=== PATIENT | male | born 1950 | race Caucasian/White ===

== ENCOUNTER 2021-07-22 16:25 | Emergency (ER) | payer OTHER, SELFPAY ==
[2021-07-22 16:59] VITALS: BP 160/87; PULSE 90; RESP 18; TEMP 36.7; O2SAT 98; BMI 19.1
--- NOTE | 2021-07-22 19:23 | ED.PSYCH ---
HPI - Psych <Consuelo Ye MD - Last Filed: 07/24/21 00:17> General Chief Complaint: Psychiatric Symptoms Stated Complaint: PHYSCHIATRY HELP DEPRESSION Time Seen by Provider: 07/22/21 19:23 Source: patient Mode of arrival: Ambulatory History of Present Illness HPI Narrative: Per MANAGER REPORTING sad, poor eating/drinking SI has gun but no plan would be interested in voluntary psych admit lost 17months ago, no meds DM poor hygeine, due to not eating was unable to get off the floor 2 weeks ago 15lbs last 2 months. No obvious dementia issues Related Data Home Medications Medication Instructions Recorded Confirmed metformin 1,000 mg tablet 1,000 mg PO BID 07/22/21 07/22/21 citalopram 10 mg tablet 10 mg PO DAILY 07/23/21 07/23/21 dapagliflozin 10 mg tablet 10 mg PO DAILY 07/23/21 07/23/21 (Farxiga) glimepiride 1 mg tablet 1 mg PO DAILY 07/23/21 07/23/21 levothyroxine 75 mcg tablet 75 mcg PO DAILY 07/23/21 07/23/21 metoprolol tartrate 25 mg tablet 12.5 mg PO BID 07/23/21 07/23/21 simvastatin 10 mg tablet 10 mg PO BEDTIME 07/23/21 07/23/21 temazepam 15 mg capsule 15 mg PO BEDTIME PRN 07/23/21 07/23/21 Allergies Allergy/AdvReac Type Severity Reaction Status Date / Time No Known Drug Allergies Allergy Verified 07/22/21 21:35 <Dat Donovan DO - Last Filed: 07/23/21 19:09> History of Present Illness HPI Narrative: 71M nonsmoker with history of diabetes, hypertension, hyperlipidemia, hypothyroidism presents with a family friend and a chief complaint of suicidal ideation with plan for the past few days. He states that his triggers are largely how sad he is at the loss of his a bit more than a year ago, also he states that he has lost a large amount of money due to being scanned by various people as another cause. He states that his plan would likely be to use a gun but he does not think he would actually do it. He requests help and wants placement into a psychiatric facility. He lives at home alone in [place]. He has been admitted for psychiatric reasons in the distant past but is not specific about the details. Per MANAGER REPORTING sad, poor eating/drinking SI has gun but no plan would be interested in voluntary psych admit lost 17months ago, no meds DM poor hygeine, due to not eating was unable to get off the floor 2 weeks ago 15lbs last 2 months. No obvious dementia issues <Dat Donovan DO - Last Filed: 07/23/21 19:09> Review of Systems Narrative: GENERAL: Denies chills, fatigue, malaise, fever, sweats. HEENT: Denies sinus pain, ear pain, sore throat, difficulty swallowing, dizziness. RESPIRATORY: Denies dyspnea, cough, wheezing, hemoptysis, sputum. CARDIOVASCULAR: Denies chest pain, palpitations, orthopnea, edema, GASTROINTESTINAL: Denies nausea, vomiting, abdominal pain, diarrhea, constipation, melena. : Denies dysuria, frequency, incontinence, hematuria, urinary retention. MUSCULOSKELETAL: denies weakness, joint pain, or bony pain SKIN: Denies rash, skin lesions, or other NEUROLOGIC: Denies weakness, headache, numbness, change in speech, confusion, seizures, incoordination. PSYCHIATRIC: See HPI 12 point review of systems is negative except for those stated above Patient History <Consuelo Ye MD - Last Filed: 07/24/21 00:17> Social History Smoking Status: Never smoker Smoking Status: Never smoker alcohol intake frequency: holidays/special occasions only Substance Use Type: does not use Exam <Consuelo Ye MD - Last Filed: 07/24/21 00:17> Initial Vital Signs Initial Vital Signs: Vital Signs Temperature 98.0 F 07/22/21 16:59 Pulse Rate 90 07/22/21 16:59 Respiratory Rate 18 07/22/21 16:59 Blood Pressure 160/87 H 07/22/21 16:59 Pulse Oximetry 98 07/22/21 16:59 <Dat Donovan DO - Last Filed: 07/23/21 19:09> Narrative Exam Narrative: GENERAL: [71] year old patient appears stated age. Well-developed patient, in mild distress. Resting comfortably, sad and a bit withdrawn HEAD: Atraumatic. Normocephalic. EYES: Pupils equal round and reactive. Extraocular motions intact. No scleral icterus. No injection or drainage. ENT: Nose without bleeding, purulent drainage. Throat without erythema, tonsillar hypertrophy or exudate. Airway patent. NECK: Trachea midline. Non tender CARDIOVASCULAR: Regular rate and rhythm without murmurs, gallops, or rubs. RESPIRATORY: Clear to auscultation. Breath sounds equal bilaterally. No wheezes, rales, or rhonchi. GASTROINTESTINAL: Abdomen soft, non-tender, nondistended. EXTREMITIES: No edema or joint tenderness. BACK: Nontender without deformity or crepitance. No flank tenderness. NEURO: AOx3. SKIN: No rash or erythema of visible areas Initial Vital Signs Initial Vital Signs: Vital Signs Temperature 98.0 F 07/22/21 16:59 Pulse Rate 90 07/22/21 16:59 Respiratory Rate 18 07/22/21 16:59 Blood Pressure 160/87 H 07/22/21 16:59 Pulse Oximetry 98 07/22/21 16:59 Course <Consuelo Ye MD - Last Filed: 07/24/21 00:17> Orders Ordered: Discontinued Medications Aspirin (Aspirin Ec 81 Mg Tablet) 162 mg PO NOW ONE Stop: 07/23/21 10:35 Last Admin: 07/23/21 10:55 Dose: 162 mg Documented by: JACE Levothyroxine Sodium (Levothyroxine 75 Mcg Tablet) 75 mcg PO DAILY@0600 [facility] Metformin HCl (Metformin Hcl 500 Mg Tablet) 1,000 mg PO 0800,1700 [facility] Metformin HCl (Metformin Hcl 500 Mg Tablet) 1,000 mg PO NOW ONE Stop: 07/22/21 21:26 Last Admin: 07/22/21 22:13 Dose: 1,000 mg Documented by: DARIUS Metformin HCl (Metformin Hcl 500 Mg Tablet) 1,000 mg PO NOW ONE Stop: 07/23/21 10:36 Last Admin: 07/23/21 10:55 Dose: 1,000 mg Documented by: JACE Metoprolol Tartrate (Metoprolol Ir 25 Mg Tablet) 12.5 mg PO NOW ONE Stop: 07/23/21 10:43 Last Admin: 07/23/21 10:55 Dose: 12.5 mg Documented by: JACE Temazepam (Temazepam 15 Mg Capsule) 15 mg PO BEDTIME PRN PRN Reason: Sleep Last Admin: 07/22/21 22:12 Dose: 15 mg Documented by: DARIUS Vital Signs Vital signs: Vital Signs - 8 hr 07/23/21 16:00 Temperature 98 F Pulse Rate 80 Respiratory Rate 18 Blood Pressure 150/75 H Pulse Oximetry 98 <Dat Donovan DO - Last Filed: 07/23/21 19:09> Course Course Narrative: Patient has been medically cleared and social Work has found an open bed and accepting provider at [facility]. Transportation is arranged. Patient understands and is in agreement with the plan Orders Ordered: Discontinued Medications Aspirin (Aspirin Ec 81 Mg Tablet) 162 mg PO NOW ONE Stop: 07/23/21 10:35 Last Admin: 07/23/21 10:55 Dose: 162 mg Documented by: JACE Levothyroxine Sodium (Levothyroxine 75 Mcg Tablet) 75 mcg PO DAILY@0600 [facility] Metformin HCl (Metformin Hcl 500 Mg Tablet) 1,000 mg PO 0800,1700 [facility] Metformin HCl (Metformin Hcl 500 Mg Tablet) 1,000 mg PO NOW ONE Stop: 07/22/21 21:26 Last Admin: 07/22/21 22:13 Dose: 1,000 mg Documented by: DARIUS Metformin HCl (Metformin Hcl 500 Mg Tablet) 1,000 mg PO NOW ONE Stop: 07/23/21 10:36 Last Admin: 07/23/21 10:55 Dose: 1,000 mg Documented by: JACE Metoprolol Tartrate (Metoprolol Ir 25 Mg Tablet) 12.5 mg PO NOW ONE Stop: 07/23/21 10:43 Last Admin: 07/23/21 10:55 Dose: 12.5 mg Documented by: JACE Temazepam (Temazepam 15 Mg Capsule) 15 mg PO BEDTIME PRN PRN Reason: Sleep Last Admin: 07/22/21 22:12 Dose: 15 mg Documented by: DARIUS Reevaluation(s) Reevaluation #1: Summer (Sister) called. He gives us permission to speak to her about his condition. I tried calling her back at [phone], but there was no answer. I did not leave a message Time: 10:54 Vital Signs Vital signs: Vital Signs - 8 hr 07/23/21 16:00 Temperature 98 F Pulse Rate 80 Respiratory Rate 18 Blood Pressure 150/75 H Pulse Oximetry 98 MDM - Psych <Consuelo Ye MD - Last Filed: 07/24/21 00:17> Lab Data Result diagrams: 07/22/21 19:48 07/22/21 19:48 Labs: Lab Results 07/22/21 07/22/21 07/22/21 Range/Units 19:48 19:48 19:48 WBC 9.1 (4.5-11.0) X10^3/uL RBC 4.50 (4.5-5.9) X10^6/uL Hgb 13.5 (13.5-17.5) g/dL Hct 40.4 L (41-53) % MCV 89.7 (80-100) fL MCH 30.1 (26-34) PG MCHC 33.5 (30-36) % RDW 13.1 (11.6-14.8) % Plt Count 235 (150-400) X10^3/uL Neut % (Auto) 80.0 H (50-75) % Lymph % (Auto) 12.4 L (25-40) % [place] % (Auto) 5.9 (3-14) % Eos % (Auto) 1.2 L (2-4) % Baso % (Auto) 0.5 (0-2) % Neut # (Auto) 7300 H (4758-1209) /uL Lymph # (Auto) 1100 (3168-5047) /uL [place] # (Auto) 500 (0-900) /uL Eos # (Auto) 100 (0-450) /uL Baso # (Auto) 0 (0-100) /uL Sodium 137 (137-145) mmol/L Potassium 4.7 (3.4-5.1) mmol/L Chloride 99 (98-107) mmol/L Carbon Dioxide 32 (22-32) mmol/L BUN 24 H (9-20) mg/dL Creatinine 1.04 (0.66-1.25) mg/dL Estimated GFR > 60.0 (>60) mL/min BUN/Creatinine Ratio 23.1 H (6-22) Glucose 331 H (80-110) mg/dL Calcium 9.6 (8.4-10.2) mg/dL Total Bilirubin 0.4 (0.2-1.3) mg/dL AST 31 (17-59) IU/L ALT 31 (<50) IU/L Alkaline Phosphatase 66 (38-126) U/L Total Protein 7.4 (6.3-8.2) g/dL Albumin 4.4 (3.5-5.0) g/dL Globulin 3.0 (1.7-4.1) g/dL Albumin/Globulin Ratio 1.5 (1.0-2.8) TSH 2.83 (0.47-4.68) uIU/mL Urine Color Urine Appearance Urine pH (4.5-8.0) Ur Specific [place] (1.000-1.035) Urine Protein (Negative) Urine Glucose (UA) (Negative) g/dL Urine Ketones (NEGATIVE) Urine Occult Blood (Negative) Urine Nitrate (Negative) Urine Bilirubin (NEGATIVE) Urine Urobilinogen (0.2) E.U./dL Ur Leukocyte Esterase (NEGATIVE) Urine RBC (0-5/HPF) Urine WBC (0-5/HPF) Urine Bacteria (None) Ur Culture Indicated? Micro UA Comment U Opiates 300ng/mL cut (Negative) Ur Oxycodone Screen (Negative) Urine Methadone Screen (Negative) Ur Barbiturates Screen (Negative) U Tricyclic Antidepress (Negative) Ur Phencyclidine Scrn (Negative) Ur Amphetamines Screen (Negative) U Methamphetamines Scrn (Negative) Ur MDMA Scrn (Ecstasy) (Negative) U Benzodiazepines Scrn (Negative) Urine Cocaine Screen (Negative) U Marijuana (THC) Screen (Negative) Ethyl Alcohol < 10 ( - 10) mg/dL SARS-CoV-2 (PCR) (Negative) 07/22/21 07/22/21 07/22/21 Range/Units 20:04 20:04 20:04 WBC (4.5-11.0) X10^3/uL RBC (4.5-5.9) X10^6/uL Hgb (13.5-17.5) g/dL Hct (41-53) % MCV (80-100) fL MCH (26-34) PG MCHC (30-36) % RDW (11.6-14.8) % Plt Count (150-400) X10^3/uL Neut % (Auto) (50-75) % Lymph % (Auto) (25-40) % [place] % (Auto) (3-14) % Eos % (Auto) (2-4) % Baso % (Auto) (0-2) % Neut # (Auto) (8930-0801) /uL Lymph # (Auto) (2418-4085) /uL [place] # (Auto) (0-900) /uL Eos # (Auto) (0-450) /uL Baso # (Auto) (0-100) /uL Sodium (137-145) mmol/L Potassium (3.4-5.1) mmol/L Chloride (98-107) mmol/L Carbon Dioxide (22-32) mmol/L BUN (9-20) mg/dL Creatinine (0.66-1.25) mg/dL Estimated GFR (>60) mL/min BUN/Creatinine Ratio (6-22) Glucose (80-110) mg/dL Calcium (8.4-10.2) mg/dL Total Bilirubin (0.2-1.3) mg/dL AST (17-59) IU/L ALT (<50) IU/L Alkaline Phosphatase (38-126) U/L Total Protein (6.3-8.2) g/dL Albumin (3.5-5.0) g/dL Globulin (1.7-4.1) g/dL Albumin/Globulin Ratio (1.0-2.8) TSH (0.47-4.68) uIU/mL Urine Color Yellow Urine Appearance Clear Urine pH 7.0 (4.5-8.0) Ur Specific [place] 1.010 (1.000-1.035) Urine Protein Negative (Negative) Urine Glucose (UA) 2+ H (Negative) g/dL Urine Ketones Trace H (NEGATIVE) Urine Occult Blood Negative (Negative) Urine Nitrate Negative (Negative) Urine Bilirubin Negative (NEGATIVE) Urine Urobilinogen 0.2 (0.2) E.U./dL Ur Leukocyte Esterase Negative (NEGATIVE) Urine RBC None seen (0-5/HPF) Urine WBC None seen (0-5/HPF) Urine Bacteria None seen (None) Ur Culture Indicated? Cult not indicated Micro UA Comment Microscopic normal U Opiates 300ng/mL cut Positive H (Negative) Ur Oxycodone Screen Negative (Negative) Urine Methadone Screen Negative (Negative) Ur Barbiturates Screen Negative (Negative) U Tricyclic Antidepress Negative (Negative) Ur Phencyclidine Scrn Negative (Negative) Ur Amphetamines Screen Negative (Negative) U Methamphetamines Scrn Negative (Negative) Ur MDMA Scrn (Ecstasy) Negative (Negative) U Benzodiazepines Scrn Positive H (Negative) Urine Cocaine Screen Negative (Negative) U Marijuana (THC) Screen Negative (Negative) Ethyl Alcohol ( - 10) mg/dL SARS-CoV-2 (PCR) Negative (Negative) Point of Care Testing Glucose POC 223 Urine Dip Bedside Urine Glucose 1000 mg/dl Bedside Urine Bilirubin - Negative Bedside Urine Ketone - Negative Urine Specific [place] 1.015 Bedside Urine Occult Blood - Negative Bedside Urine pH 7.0 Bedside Urine Protein - Negative Bedside Urine Urobilinogen - Negative Bedside Urine Nitrite - Negative Bedside Urine Leukocytes - Negative Esterase <Dat Donovan DO - Last Filed: 07/23/21 19:09> Lab Data Labs: Lab Results 07/22/21 07/22/21 07/22/21 Range/Units 19:48 19:48 19:48 WBC 9.1 (4.5-11.0) X10^3/uL RBC 4.50 (4.5-5.9) X10^6/uL Hgb 13.5 (13.5-17.5) g/dL Hct 40.4 L (41-53) % MCV 89.7 (80-100) fL MCH 30.1 (26-34) PG MCHC 33.5 (30-36) % RDW 13.1 (11.6-14.8) % Plt Count 235 (150-400) X10^3/uL Neut % (Auto) 80.0 H (50-75) % Lymph % (Auto) 12.4 L (25-40) % [place] % (Auto) 5.9 (3-14) % Eos % (Auto) 1.2 L (2-4) % Baso % (Auto) 0.5 (0-2) % Neut # (Auto) 7300 H (5343-2703) /uL Lymph # (Auto) 1100 (2923-3486) /uL [place] # (Auto) 500 (0-900) /uL Eos # (Auto) 100 (0-450) /uL Baso # (Auto) 0 (0-100) /uL Sodium 137 (137-145) mmol/L Potassium 4.7 (3.4-5.1) mmol/L Chloride 99 (98-107) mmol/L Carbon Dioxide 32 (22-32) mmol/L BUN 24 H (9-20) mg/dL Creatinine 1.04 (0.66-1.25) mg/dL Estimated GFR > 60.0 (>60) mL/min BUN/Creatinine Ratio 23.1 H (6-22) Glucose 331 H (80-110) mg/dL Calcium 9.6 (8.4-10.2) mg/dL Total Bilirubin 0.4 (0.2-1.3) mg/dL AST 31 (17-59) IU/L ALT 31 (<50) IU/L Alkaline Phosphatase 66 (38-126) U/L Total Protein 7.4 (6.3-8.2) g/dL Albumin 4.4 (3.5-5.0) g/dL Globulin 3.0 (1.7-4.1) g/dL Albumin/Globulin Ratio 1.5 (1.0-2.8) TSH 2.83 (0.47-4.68) uIU/mL Urine Color Urine Appearance Urine pH (4.5-8.0) Ur Specific [place] (1.000-1.035) Urine Protein (Negative) Urine Glucose (UA) (Negative) g/dL Urine Ketones (NEGATIVE) Urine Occult Blood (Negative) Urine Nitrate (Negative) Urine Bilirubin (NEGATIVE) Urine Urobilinogen (0.2) E.U./dL Ur Leukocyte Esterase (NEGATIVE) Urine RBC (0-5/HPF) Urine WBC (0-5/HPF) Urine Bacteria (None) Ur Culture Indicated? Micro UA Comment U Opiates 300ng/mL cut (Negative) Ur Oxycodone Screen (Negative) Urine Methadone Screen (Negative) Ur Barbiturates Screen (Negative) U Tricyclic Antidepress (Negative) Ur Phencyclidine Scrn (Negative) Ur Amphetamines Screen (Negative) U Methamphetamines Scrn (Negative) Ur MDMA Scrn (Ecstasy) (Negative) U Benzodiazepines Scrn (Negative) Urine Cocaine Screen (Negative) U Marijuana (THC) Screen (Negative) Ethyl Alcohol < 10 ( - 10) mg/dL SARS-CoV-2 (PCR) (Negative) 07/22/21 07/22/21 07/22/21 Range/Units 20:04 20:04 20:04 WBC (4.5-11.0) X10^3/uL RBC (4.5-5.9) X10^6/uL Hgb (13.5-17.5) g/dL Hct (41-53) % MCV (80-100) fL MCH (26-34) PG MCHC (30-36) % RDW (11.6-14.8) % Plt Count (150-400) X10^3/uL Neut % (Auto) (50-75) % Lymph % (Auto) (25-40) % [place] % (Auto) (3-14) % Eos % (Auto) (2-4) % Baso % (Auto) (0-2) % Neut # (Auto) (7796-3698) /uL Lymph # (Auto) (2146-7104) /uL [place] # (Auto) (0-900) /uL Eos # (Auto) (0-450) /uL Baso # (Auto) (0-100) /uL Sodium (137-145) mmol/L Potassium (3.4-5.1) mmol/L Chloride (98-107) mmol/L Carbon Dioxide (22-32) mmol/L BUN (9-20) mg/dL Creatinine (0.66-1.25) mg/dL Estimated GFR (>60) mL/min BUN/Creatinine Ratio (6-22) Glucose (80-110) mg/dL Calcium (8.4-10.2) mg/dL Total Bilirubin (0.2-1.3) mg/dL AST (17-59) IU/L ALT (<50) IU/L Alkaline Phosphatase (38-126) U/L Total Protein (6.3-8.2) g/dL Albumin (3.5-5.0) g/dL Globulin (1.7-4.1) g/dL Albumin/Globulin Ratio (1.0-2.8) TSH (0.47-4.68) uIU/mL Urine Color Yellow Urine Appearance Clear Urine pH 7.0 (4.5-8.0) Ur Specific [place] 1.010 (1.000-1.035) Urine Protein Negative (Negative) Urine Glucose (UA) 2+ H (Negative) g/dL Urine Ketones Trace H (NEGATIVE) Urine Occult Blood Negative (Negative) Urine Nitrate Negative (Negative) Urine Bilirubin Negative (NEGATIVE) Urine Urobilinogen 0.2 (0.2) E.U./dL Ur Leukocyte Esterase Negative (NEGATIVE) Urine RBC None seen (0-5/HPF) Urine WBC None seen (0-5/HPF) Urine Bacteria None seen (None) Ur Culture Indicated? Cult not indicated Micro UA Comment Microscopic normal U Opiates 300ng/mL cut Positive H (Negative) Ur Oxycodone Screen Negative (Negative) Urine Methadone Screen Negative (Negative) Ur Barbiturates Screen Negative (Negative) U Tricyclic Antidepress Negative (Negative) Ur Phencyclidine Scrn Negative (Negative) Ur Amphetamines Screen Negative (Negative) U Methamphetamines Scrn Negative (Negative) Ur MDMA Scrn (Ecstasy) Negative (Negative) U Benzodiazepines Scrn Positive H (Negative) Urine Cocaine Screen Negative (Negative) U Marijuana (THC) Screen Negative (Negative) Ethyl Alcohol ( - 10) mg/dL SARS-CoV-2 (PCR) Negative (Negative) Point of Care Testing Glucose POC 223 Urine Dip Bedside Urine Glucose 1000 mg/dl Bedside Urine Bilirubin - Negative Bedside Urine Ketone - Negative Urine Specific [place] 1.015 Bedside Urine Occult Blood - Negative Bedside Urine pH 7.0 Bedside Urine Protein - Negative Bedside Urine Urobilinogen - Negative Bedside Urine Nitrite - Negative Bedside Urine Leukocytes - Negative Esterase MDM Narrative Medical decision making narrative: Patient presents with suicidal ideation and a plan and requesting placement for mental health. He has been medically cleared, home medications administered. MANAGER REPORTING has worked with him last night and throughout the day and has found placement at [facility]. Patient understands and agrees with the diagnosis and plan, he is thankful for care received and is had questions answered to his apparent satisfaction Discharge Plan Departure Patient Disposition: Xfer Psychiatric Hosp Clinical Impression: Suicidal ideation
[2021-07-22 19:56] LABS: Add Manual Diff / Slide Review NO; Basophils Absolute Auto 0 /uL (0-100); Basophils Percent Auto 0.5 % (0-2); Eosinophils Absolute Auto 100 /uL (0-450); Eosinophils Percent Auto 1.2 % (2-4); Hematocrit 40.4 % (41-53); Hemoglobin 13.5 g/dL (13.5-17.5); Lymphocytes Absolute Auto 1100 /uL (1100-4500); Lymphocytes Percent Auto 12.4 % (25-40); Mean Corpuscular HGB Conc 33.5 % (30-36); Mean Corpuscular Hemoglobin 30.1 PG (26-34); Mean Corpuscular Volume 89.7 fL (80-100); Monocytes Absolute Auto 500 /uL (0-900); Monocytes Percent Auto 5.9 % (3-14); Neutrophils Absolute Auto 7300 /uL (1500-7000); Platelet Count 235 X10^3/uL (150-400); Red Cell Distribution Width 13.1 % (11.6-14.8); White Blood Cell Count 9.1 X10^3/uL (4.5-11.0)
[2021-07-22 20:07] LABS: Alanine Aminotransferase 31 IU/L (<50); Albumin 4.4 g/dL (3.5-5.0); Albumin Globulin Ratio 1.5 (1.0-2.8); Alkaline Phosphatase 66 U/L (38-126); Aspartate Aminotransferase 31 IU/L (17-59); BUN Creatinine Ratio 23.1 (6-22); Bilirubin Total 0.4 mg/dL (0.2-1.3); Blood Urea Nitrogen 24 mg/dL (9-20); Calcium 9.6 mg/dL (8.4-10.2); Carbon Dioxide 32 mmol/L (22-32); Chloride 99 mmol/L (98-107); Estimated Glomerular Filt Rate > 60.0 mL/min (>60); Ethanol (ETOH) < 10 mg/dL; Glucose 331 mg/dL (80-110); HEMOLYSIS < 15 (0-50); Potassium 4.7 mmol/L (3.4-5.1); Sodium 137 mmol/L (137-145); Total Protein 7.4 g/dL (6.3-8.2)
--- NOTE | 2021-07-22 20:13 | CM.SWNOTE ---
SLIPCOVER CUTTER Assessment SLIPCOVER CUTTER - Aviation Electronic Warfare Operator Assessment SLIPCOVER CUTTER/Aviation Electronic Warfare Operator Assessment Time Spent with Patient Start date 07/22/21 Visit Start Time 19:05 End date 07/22/21 Visit End Time 19:25 Total time Care Management spent on 20 patient visit-in minutes Mental Health Screening Include Onset, Duration, Intensity Presenting Problem Patient presents to the ED with friend after making statements that he wants to end his life. Patient presents with SI, when asked about plans patient states that he owns a gun. Precipitating Event(s) Patient endorses his of cancer 17 months ago and he is very sad. Patient endorses that he has been scammed by various women 4 times and lost a lot of money. Patient endorses that he has not been able to sleep for several nights. Patient states he is upset because my girlfriend never showed up from [place]. Patient Strengths Patient is seeking help. Current Behavioral Health Provider(s) Patient denies current BH Include Facility, Provider, Ph. # provider but states he is interested. Psych. Hx Mental Health and Chemical Patient denies MH diagnoses Dependency but endorses depression and SI . Patient endorses ETOH use and denies other substances. Family Hx of Behavioral Abuse Patient states that his 17 months ago. Psychiatric Hospitalizations (date(s)/ Patient endorses he went to a location) hospital voluntarily in [place] but he does not recall the circumstances. Psychosocial information & Support Patient is 71 y/o male who Systems resides alone in [place], [place] . Patient has friends who are fellow artists and supports to patient. Patient presents to ED today with friend. It is reported that patient has an estranged sister in [place]. 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 Patient is tearful at times. Thought Content - Specify/Describe Patient denies visual and Obsessions, Delusions, Hallucinations auditory hallucinations. Thought Processes (Eoahwkx-Vahqcvsk-Ysfe Circumstantial Nqlfjhrv-Iguihabd-Qoxinajstn- Vgwoiiwnbiapfh-Hohcwww-Kmzbjcivunlc- Thought Blocking) Speech (Eieyen-Prjw-Dxkhdki-Rapid-Soft- Normal/slow Loud-Pressured) Motor (Kemrzt-Cppyzfctd-Vzyd-Other) normal, not formally assessed Insight (Qbgd-Bxnd-Qxuh/Limited) fair Judgement (Vzsa-Wjej-Hviv/Limited) fair/poor Patient has not been caring for self, not eating, bathing or sleeping in several days per his report and friend's report. Impulse Control (Adequate-Impaired) adequate Memory (Hnkobdzpi-Xwzbgd-Acgcxc, Intact, not formally assessed Impaired-Intact) Concentration (Intact-Impaired) intact Attention (Intact-Impaired) intact Behavior (Appropriate-Inappropriate) appropriate Additional Comment Patient is calm and communicative Risk Assessment Suicidal Ideation (Plan) Yes Homicidal Ideation (Plan) No Comment Patient denies HI. Patient endorses ongoing SI for the last year and states that he had significant SI today and for the last several days. When asked about a plan , patient states that he owns a shot gun but I don't think I would use it. Patient states he wants to go to a hospital for several days. Intervention Intervention SLIPCOVER CUTTER enters room to meet with patient. Present in room is patient's friend and patient indicates friend can be present during assessment. Patient states that he has been scammed by women several times and given them a lot of money. Patient states he reported these scams to . Patient states his girlfriend was supposed to visit from [place] but she did not show up. Patient endorses he has not bathed in 3-4 days, has not been sleeping or eating. Patient states he has lost 15 lbs in the last few months. Patient states he lost his 17 months ago due to Cancer. Patient indicates loneliness and hopelessness. Friend and patient report that patient is diabetic and patient found himself on the floor for over an hour after fainting due to patient not nourishing self. SLIPCOVER CUTTER discusses voluntary inpatient hospitalization as patient states he is seeking crisis stabilization. Patient provides consent and phone number for his friend Neri. SLIPCOVER CUTTER calls friend who reports that patient has been scammed 8-10 times over the last 2 years. Friend reports concern for attention seeking behavior as friends have warned patient of the consequences. Friend indicates that patient has lost over $ 30,000 from such scams. Friend endorses that patient made statements of wanting to end his life over the summer and made such statements today as well. It is the opinion of this SLIPCOVER CUTTER that patient would benefit from voluntary inpatient hospitalization for safety, and crisis stabilization. SLIPCOVER CUTTER reviews the above with ED provider Dr. Ye who indicates agreement and understanding. Plan RA Plan ED team to seek voluntary inpatient bed for patient when medically clear. ANDREW Day
[2021-07-22 20:21] LABS: Appearance Urine UA CLEAR; Bilirubin Urine UA NEGATIVE (NEGATIVE); Color Urine UA YELLOW; Glucose Urine UA 2+ g/dL (Negative); Ketones Urine UA TRACE (NEGATIVE); Leukocyte Esterase Urine UA NEGATIVE (NEGATIVE); Nitrite Urine UA NEGATIVE (Negative); Occult Blood Urine UA NEGATIVE (Negative); Protein Urine UA NEGATIVE (Negative); Urobilinogen Urine UA 0.2 E.U./dL (0.2)
[2021-07-22 20:39] LABS: UR Morphine/Opiate cutoff 300 Positive (Negative); Ur Creatinine Normal (Normal); Ur Specific Gravity Normal (Normal); Urine Amphetamines Negative (Negative); Urine Barbiturates Negative (Negative); Urine Benzodiazepines Positive (Negative); Urine Cocaine Negative (Negative); Urine MDMA Negative (Negative); Urine Methadone Negative (Negative); Urine Methamphetamines Negative (Negative); Urine Oxycodone Negative (Negative); Urine Phencyclidine Negative (Negative); Urine Tetrahydrocannabinol Negative (Negative); Urine Tricyclic Antidepressant Negative (Negative); Urine pH Normal (Normal)
[2021-07-22 20:41] LABS: Bacteria Urine None Seen; Culture Indicated Urine Cult Not Indicated; RBC Urine None Seen (0-5/HPF); Urine Comments Microscopic Normal; WBC Urine None Seen (0-5/HPF)
[2021-07-22 20:59] LABS: TSH w/ Reflex to FT4 2.83 uIU/mL (0.47-4.68)
[2021-07-22 21:01] LABS: COVID19 -Nasal RAPID Negative (Negative)
[2021-07-22] MEDS: TEMAZEPAM 15 MG CAPSULE PO (22:12)
[2021-07-22] MEDS: METFORMIN HCL 500 MG TABLET 1000 MG PO (22:13)
[2021-07-22 22:14] VITALS: BP 138/73; PULSE 70; RESP 18; O2SAT 96
--- NOTE | 2021-07-22 22:30 | PC.NURSE ---
pt requested and was given belongings bag to get money out of his wallet for friends gas that was visiting
[2021-07-23 09:00] VITALS: BP 151/71; PULSE 89; RESP 18; TEMP 36.6; O2SAT 98
--- NOTE | 2021-07-23 10:27 | PC.NURSE ---
Pt is sitting up and talking to his friend, Neri.
[2021-07-23] MEDS: ASPIRIN EC 81 MG TABLET 162 MG PO (10:55)
[2021-07-23] MEDS: METFORMIN HCL 500 MG TABLET 1000 MG PO (10:55)
[2021-07-23] MEDS: METOPROLOL IR 25 MG TABLET 12.5 MG PO (10:55)
--- NOTE | 2021-07-23 11:00 | PC.NURSE ---
Pt is sitting in bed and talking to his friend that is in the room with him.
--- NOTE | 2021-07-23 14:46 | CM.SWNOTE ---
FATS AND OILS LOADER Note FATS AND OILS LOADER meets with patient further and patient states that he is still seeking voluntary inpatient hospitalization. Patient presents as tearful when talking about his depression and the grief of the loss of his . FATS AND OILS LOADER calls [facility] it is reported that they have beds and can review patient. FATS AND OILS LOADER calls [facility] it is reported that they do not have beds but may have beds tomorrow. FATS AND OILS LOADER calls [facility], it is reported that they have beds and review patient. FATS AND OILS LOADER receives call from Juan Luis at [facility] and she requests to speak with patient. Patient endorses significant history of depression. Patient endorses SI but states e would not act on it. Patient is tearful on the phone. Patient denies hx of SA in the past. When patient is questioned about positive UA for Opiates and Benzodiazepines he states he is not prescribed this medication and he states that he used THC recently to help him sleep. Patient agrees to [facility] rules and guidelines and patient continues to state I just need help. Juan Luis with intake informs FATS AND OILS LOADER that patient is accepted at [facility] by accepting provider Dr. Getachew Hoover MD. It is requested that patient BG level needs to be below 300. FATS AND OILS LOADER informs RN of this. It is reported that patient can arrive at any time after patient has adequate BG level. Patient's current BG level is tested at 223. Nurse to nurse: Ph. # [phone]. LACING OPERATOR to set up transportation. Plan: Patient to transfer to [facility]
--- NOTE | 2021-07-23 15:16 | PC.NURSE ---
report given to rn at [facility] Nurse to nurse [phone]
[2021-07-23 16:00] VITALS: BP 150/75; PULSE 80; RESP 18; TEMP 36.6; O2SAT 98
== END 2021-07-23 16:55 ==
PROVIDERS: Emergency Medicine; Emergency Provider Emergency Medicine
DX: R45.851 Suicidal ideations (principal); Z20.822 Contact with and (suspected) exposure to COVID-19
CPT/HCPCS: 36415; 80053; 80305; 80320; 81001; 81003; 82962; 84443; 85025; 87635; 93005; 93010; 99284; C9803

== ENCOUNTER 2022-05-03 10:17 | Inpatient (IN) | payer OTHER, SELFPAY ==
[2022-05-03] VITALS (28 sets, daily range): BP systolic 142–199; BP diastolic 70–116; PULSE 90–145; RESP 20–34; TEMP 36.5–38; O2SAT 89–99; BMI 21.7; BMI 19.4
--- NOTE | 2022-05-03 10:20 | DI.RAD.S_ITS ---
PROCEDURE: XR CHEST 1V INDICATIONS: septic workup TECHNIQUE: One view of the chest was acquired. COMPARISON: None. FINDINGS: Surgical changes and devices: Midline sternal wires. Mediastinal surgical clips present. Lungs and pleura: Lungs are clear. No pleural effusions or pneumothorax. Mediastinum: Mediastinal contours appear normal. Heart size is normal. Bones and chest wall: No suspicious bony lesions. Overlying soft tissues appear unremarkable. IMPRESSION: No acute cardiopulmonary findings Approved by: Denver Sanchez M.D. on 05/03/2022 at 11:00
--- NOTE | 2022-05-03 10:23 | ED_ITS ---
HPI - General Adult General Chief complaint: Weakness Stated complaint: GLF Time Seen by Provider: 05/03/22 10:20 History of Present Illness HPI narrative: 71-year-old male nonsmoker with history of diabetes, hypertension, hyperlipidemia and hypothyroid presents by EMS for evaluation of weakness and a ground level fall this morning. He states he did not fall, but that he felt weak upon getting out of bed and sat down until someone came to find him. He denies any injury and specifically states no head, neck or back pain. He states that he has significant sore throat and difficulty swallowing. He states that he was having generalized weakness and difficulty getting around which is abnormal for him and fell to the ground. He denies blurred vision or trouble with speech. He denies any chest pain or shortness of breath. He denies abdominal pain, nausea, vomiting or diarrhea. He denies any recent change in his medications Related Data Home Medications Medication Instructions Recorded Confirmed metformin 1,000 mg tablet 1,000 mg PO BID 07/22/21 07/22/21 citalopram 10 mg tablet 10 mg PO DAILY 07/23/21 07/23/21 dapagliflozin 10 mg tablet 10 mg PO DAILY 07/23/21 07/23/21 (Farxiga) glimepiride 1 mg tablet 1 mg PO DAILY 07/23/21 07/23/21 levothyroxine 75 mcg tablet 75 mcg PO DAILY 07/23/21 07/23/21 metoprolol tartrate 25 mg tablet 12.5 mg PO BID 07/23/21 07/23/21 simvastatin 10 mg tablet 10 mg PO BEDTIME 07/23/21 07/23/21 temazepam 15 mg capsule 15 mg PO BEDTIME PRN Sleep 07/23/21 07/23/21 Allergies Allergy/AdvReac Type Severity Reaction Status Date / Time No Known Drug Allergies Allergy Verified 07/22/21 21:35 Review of Systems Review of Systems Narrative: GENERAL: See HPI HEENT: see HPI RESPIRATORY: Denies dyspnea, cough, wheezing, hemoptysis, sputum. CARDIOVASCULAR: Denies chest pain, palpitations, orthopnea, edema, GASTROINTESTINAL: Denies nausea, vomiting, abdominal pain, diarrhea, constipation, melena. : Denies dysuria, frequency, incontinence, hematuria, urinary retention. MUSCULOSKELETAL: denies weakness, joint pain, or bony pain SKIN: Denies rash, skin lesions, or other NEUROLOGIC: Denies weakness, headache, numbness, change in speech, confusion, seizures, incoordination. PSYCHIATRIC: No concerning psychosocial issues. 12 point review of systems is negative except for those stated above Patient History Social History Smoking Status: Never smoker Smoking Status: Never smoker alcohol intake frequency: holidays/special occasions only Substance Use Type: does not use Exam Narrative Exam Narrative: GENERAL: [71] year old patient appears stated age. Well-developed patient, in mild distress. HEAD: Atraumatic. Normocephalic. EYES: Pupils equal round and reactive. Extraocular motions intact. No scleral icterus. No injection or drainage. ENT: Nose without bleeding, purulent drainage. Throat somewhat erythematous without any significant swelling or exudate, airway patent, patient managing secretions without difficulty. NECK: Trachea midline. Non tender CARDIOVASCULAR: Tachycardic but regular rhythm without murmurs, gallops, or rubs. RESPIRATORY: Clear to auscultation. Breath sounds equal bilaterally. No wheezes, rales, or rhonchi. GASTROINTESTINAL: Abdomen soft, non-tender, nondistended. EXTREMITIES: No edema or joint tenderness. BACK: Nontender without deformity or crepitance. No flank tenderness. NEURO: AOx3. SKIN: No rash or erythema of visible areas Initial Vital Signs Initial Vital Signs: Vital Signs Pulse Rate 108 H 05/03/22 10:22 Blood Pressure 157/79 H 05/03/22 10:22 Pulse Oximetry 99 05/03/22 10:22 Course Orders Ordered: ED Orders 05/03/22 10:20 Chest [XR chest 1V] Stat 05/03/22 10:33 Covid-19 + FLU A/B + RSV - PCR Stat 05/03/22 10:41 CBC Auto Diff [Complete Blood Count AUTO DIFF] Stat CMP [Comprehensive Metabolic Panel] Stat D Dimer Stat Ketones (Beta-Hydroxybutyrate) Stat Lactate (Lactic Acid) Stat 05/03/22 11:58 Blood Culture Stat 05/03/22 12:01 Urine Microscopic Stat 05/03/22 12:07 VBG [Venous Blood Gas] Stat 05/03/22 13:22 EKG-12 Lead Stat 05/03/22 14:41 CT angio chest PE protocol Stat 05/03/22 15:19 BNP [NT-proBNP (BNP-Adult 18+)] Stat CBC Auto Diff [Complete Blood Count AUTO DIFF] Stat CMP [Comprehensive Metabolic Panel] Stat Troponin & CK Cardiac Panel Stat Remdesivir 200 mg/ Sodium (Chloride) 250 mls @ 250 mls/hr IV NOW ONE Stop: 05/03/22 17:56 Discontinued Medications Acetaminophen (Acetaminophen 325 Mg Tablet) 650 mg PO NOW ONE Stop: 05/03/22 10:47 Last Admin: 05/03/22 10:56 Dose: 650 mg Documented By: NR Dexamethasone (Dexamethasone 10 Mg/Ml Vial) 6 mg IV NOW ONE Stop: 05/03/22 16:58 Last Admin: 05/03/22 17:13 Dose: 6 mg Lactated Ringer's (Lactated Ringers) 1,000 mls @ 1,000 mls/hr IV BOLUS ONE Stop: 05/03/22 11:19 Last Infusion: 05/03/22 12:40 Dose: 0 mls/hr Documented By: Admin: 05/03/22 10:37 Dose: 1,000 mls/hr Documented By: SANJIV Lactated Ringer's (Lactated Ringers) 1,000 mls @ 1,000 mls/hr IV BOLUS ONE Stop: 05/03/22 14:08 Last Infusion: 05/03/22 14:43 Dose: 0 mls/hr Documented By: Admin: 05/03/22 13:34 Dose: 1,000 mls/hr Documented By: NR Ceftriaxone Sodium 1,000 mg/ (Sodium Chloride) 100 mls @ 200 mls/hr IV NOW ONE Stop: 05/03/22 16:58 Last Admin: 05/03/22 17:13 Dose: 200 mls/hr Azithromycin 500 mg/ Dextrose 250 mls @ 250 mls/hr IV NOW ONE Stop: 05/03/22 16:58 Reevaluation(s) Reevaluation #1: Patient slowly and increasingly becoming tachycardic and short of breath, now requiring 2 and at times for L to maintain saturations above 90%. He is D-dimer is positive though not significantly elevated, however given his progression we will perform a CT angiogram. Respiratory therapy has been consulted to perform some suctioning as he does have some wet sounding cough, repeat labs ordered Vital Signs Vital signs: Vital Signs - 8 hr 05/03/22 10:25 05/03/22 10:22 05/03/22 10:22 Temperature 98.9 F Pulse Rate 108 H 108 H Respiratory Rate 20 Blood Pressure 157/79 H 157/79 H Pulse Oximetry 97 99 Oxygen Delivery Method Room Air Oxygen Flow Rate 05/03/22 10:30 05/03/22 10:58 05/03/22 10:58 Temperature Pulse Rate 109 H 109 H Respiratory Rate Blood Pressure 162/83 H Pulse Oximetry 99 94 Oxygen Delivery Method Oxygen Flow Rate 05/03/22 11:00 05/03/22 11:00 05/03/22 11:32 Temperature Pulse Rate 105 H Respiratory Rate Blood Pressure 179/83 H 170/102 H Pulse Oximetry 96 Oxygen Delivery Method Oxygen Flow Rate 05/03/22 11:32 05/03/22 12:00 05/03/22 12:00 Temperature Pulse Rate 90 109 H Respiratory Rate Blood Pressure 142/70 H Pulse Oximetry 98 97 Oxygen Delivery Method Oxygen Flow Rate 05/03/22 12:30 05/03/22 12:30 05/03/22 13:00 Temperature Pulse Rate 112 H Respiratory Rate Blood Pressure 168/83 H 175/86 H Pulse Oximetry 97 Oxygen Delivery Method Oxygen Flow Rate 05/03/22 13:00 05/03/22 13:30 05/03/22 13:30 Temperature Pulse Rate 112 H 120 H Respiratory Rate Blood Pressure 192/116 H Pulse Oximetry 96 96 Oxygen Delivery Method Oxygen Flow Rate 05/03/22 13:47 05/03/22 13:47 05/03/22 14:00 Temperature Pulse Rate 118 H Respiratory Rate Blood Pressure 187/96 H 169/84 H Pulse Oximetry 99 Oxygen Delivery Method Oxygen Flow Rate 05/03/22 14:00 05/03/22 15:41 05/03/22 14:30 Temperature Pulse Rate 117 H Respiratory Rate 20 Blood Pressure 170/91 H Pulse Oximetry 98 96 Oxygen Delivery Method Nasal Cannula Oxygen Flow Rate 5 05/03/22 14:30 05/03/22 15:00 05/03/22 15:00 Temperature Pulse Rate 120 H 125 H Respiratory Rate 28 H 25 H Blood Pressure 154/76 H Pulse Oximetry 95 92 Oxygen Delivery Method Oxygen Flow Rate 05/03/22 15:30 05/03/22 15:31 05/03/22 15:31 Temperature Pulse Rate 122 H 122 H Respiratory Rate 31 H 33 H Blood Pressure 186/94 H Pulse Oximetry 89 L 89 L Oxygen Delivery Method Oxygen Flow Rate 05/03/22 16:01 05/03/22 16:02 05/03/22 16:02 Temperature Pulse Rate 124 H 124 H Respiratory Rate 34 H 29 H Blood Pressure 172/92 H Pulse Oximetry 89 L 89 L Oxygen Delivery Method Oxygen Flow Rate 05/03/22 16:30 05/03/22 16:30 05/03/22 17:00 Temperature Pulse Rate 125 H Respiratory Rate 27 H Blood Pressure 182/94 H 157/85 H Pulse Oximetry 95 Oxygen Delivery Method Oxygen Flow Rate 05/03/22 17:00 Temperature Pulse Rate 129 H Respiratory Rate 28 H Blood Pressure Pulse Oximetry 97 Oxygen Delivery Method Oxygen Flow Rate Medical Decision Making Lab Data Result diagrams: 05/03/22 15:19 05/03/22 15:19 Labs: Lab Results 05/03/22 05/03/22 05/03/22 Range/Units 10:33 10:41 10:41 WBC 8.7 (4.5-11.0) X10^3/uL RBC 5.17 (4.5-5.9) X10^6/uL Hgb 15.2 (13.5-17.5) g/dL Hct 46.1 (41-53) % MCV 89.0 (80-100) fL MCH 29.4 (26-34) PG MCHC 33.1 (30-36) % RDW 13.0 (11.6-14.8) % Plt Count 193 (150-400) X10^3/uL Neut % (Auto) 87.2 H (50-75) % Lymph % (Auto) 4.8 L (25-40) % [place] % (Auto) 7.8 (3-14) % Eos % (Auto) 0.1 L (2-4) % Baso % (Auto) 0.1 (0-2) % Neut # (Auto) 7600 H (3056-8218) /uL Lymph # (Auto) 400 L (8008-2899) /uL [place] # (Auto) 700 (0-900) /uL Eos # (Auto) 0 (0-450) /uL Baso # (Auto) 0 (0-100) /uL D-Dimer (<500) ng/ml VBG pH (7.33-7.43) VBG pCO2 (45-50) mmHg VBG pO2 (35-45) mmHg VBG HCO3 (23-28) mmol/L VBG Total CO2 (24-29) mmol/L VBG O2 Saturation (70-75) % VBG Base Excess (0-4) mmol/L Sodium 135 L (137-145) mmol/L Potassium 4.6 (3.4-5.1) mmol/L Chloride 95 L (98-107) mmol/L Carbon Dioxide 22 (22-32) mmol/L BUN 20 (9-20) mg/dL Creatinine 1.21 (0.66-1.25) mg/dL Estimated GFR > 60 (>60) mL/min BUN/Creatinine Ratio 16.5 (6-22) Glucose 302 H (80-110) mg/dL Lactate (0.7-2.1) mmol/L Calcium 9.6 (8.4-10.2) mg/dL Total Bilirubin 0.4 (0.2-1.3) mg/dL AST 22 (17-59) IU/L ALT 21 (<50) IU/L Alkaline Phosphatase 76 (38-126) U/L Total Creatine Kinase (55-170) U/L CK-MB (CK-2) (<2.37) ng/mL CK-MB (CK-2) Rel Index (1.5-5.0) % Troponin I (0.01-0.034) ng/mL NT-Pro-B Natriuret Pep (<125) pg/mL Total Protein 8.4 H (6.3-8.2) g/dL Albumin 4.7 (3.5-5.0) g/dL Globulin 3.7 (1.7-4.1) g/dL Albumin/Globulin Ratio 1.3 (1.0-2.8) Urine RBC (0-5/HPF) Urine WBC (0-5/HPF) Urine Bacteria (None) Ur Culture Indicated? Ketones 4.87 H (<0.27) mmol/L SARS-CoV-2 (PCR) Positive H (Negative) Influenza A (RT-PCR) Flu a negative (NEGATIVE) Influenza B (RT-PCR) Flu b negative (NEGATIVE) RSV (PCR) Negative (Negative) 05/03/22 05/03/22 05/03/22 Range/Units 10:41 10:41 12:01 WBC (4.5-11.0) X10^3/uL RBC (4.5-5.9) X10^6/uL Hgb (13.5-17.5) g/dL Hct (41-53) % MCV (80-100) fL MCH (26-34) PG MCHC (30-36) % RDW (11.6-14.8) % Plt Count (150-400) X10^3/uL Neut % (Auto) (50-75) % Lymph % (Auto) (25-40) % [place] % (Auto) (3-14) % Eos % (Auto) (2-4) % Baso % (Auto) (0-2) % Neut # (Auto) (7944-1348) /uL Lymph # (Auto) (0146-5955) /uL [place] # (Auto) (0-900) /uL Eos # (Auto) (0-450) /uL Baso # (Auto) (0-100) /uL D-Dimer 766 H (<500) ng/ml VBG pH (7.33-7.43) VBG pCO2 (45-50) mmHg VBG pO2 (35-45) mmHg VBG HCO3 (23-28) mmol/L VBG Total CO2 (24-29) mmol/L VBG O2 Saturation (70-75) % VBG Base Excess (0-4) mmol/L Sodium (137-145) mmol/L Potassium (3.4-5.1) mmol/L Chloride (98-107) mmol/L Carbon Dioxide (22-32) mmol/L BUN (9-20) mg/dL Creatinine (0.66-1.25) mg/dL Estimated GFR (>60) mL/min BUN/Creatinine Ratio (6-22) Glucose (80-110) mg/dL Lactate 1.6 (0.7-2.1) mmol/L Calcium (8.4-10.2) mg/dL Total Bilirubin (0.2-1.3) mg/dL AST (17-59) IU/L ALT (<50) IU/L Alkaline Phosphatase (38-126) U/L Total Creatine Kinase (55-170) U/L CK-MB (CK-2) (<2.37) ng/mL CK-MB (CK-2) Rel Index (1.5-5.0) % Troponin I (0.01-0.034) ng/mL NT-Pro-B Natriuret Pep (<125) pg/mL Total Protein (6.3-8.2) g/dL Albumin (3.5-5.0) g/dL Globulin (1.7-4.1) g/dL Albumin/Globulin Ratio (1.0-2.8) Urine RBC None seen (0-5/HPF) Urine WBC None seen (0-5/HPF) Urine Bacteria None seen (None) Ur Culture Indicated? Cult not indicated Ketones (<0.27) mmol/L SARS-CoV-2 (PCR) (Negative) Influenza A (RT-PCR) (NEGATIVE) Influenza B (RT-PCR) (NEGATIVE) RSV (PCR) (Negative) 05/03/22 05/03/22 05/03/22 Range/Units 12:07 15:19 15:19 WBC 9.7 (4.5-11.0) X10^3/uL RBC 4.82 (4.5-5.9) X10^6/uL Hgb 14.2 (13.5-17.5) g/dL Hct 42.6 (41-53) % MCV 88.3 (80-100) fL MCH 29.5 (26-34) PG MCHC 33.4 (30-36) % RDW 12.7 (11.6-14.8) % Plt Count 178 (150-400) X10^3/uL Neut % (Auto) 87.2 H (50-75) % Lymph % (Auto) 6.3 L (25-40) % [place] % (Auto) 6.3 (3-14) % Eos % (Auto) 0.0 L (2-4) % Baso % (Auto) 0.2 (0-2) % Neut # (Auto) 8500 H (5236-8913) /uL Lymph # (Auto) 600 L (7036-0877) /uL [place] # (Auto) 600 (0-900) /uL Eos # (Auto) 0 (0-450) /uL Baso # (Auto) 0 (0-100) /uL D-Dimer (<500) ng/ml VBG pH 7.37 (7.33-7.43) VBG pCO2 34.3 L (45-50) mmHg VBG pO2 35 (35-45) mmHg VBG HCO3 20 L (23-28) mmol/L VBG Total CO2 21 L (24-29) mmol/L VBG O2 Saturation 66 L (70-75) % VBG Base Excess -5.0 L (0-4) mmol/L Sodium 135 L (137-145) mmol/L Potassium 4.4 (3.4-5.1) mmol/L Chloride 99 (98-107) mmol/L Carbon Dioxide 20 L (22-32) mmol/L BUN 18 (9-20) mg/dL Creatinine 0.99 (0.66-1.25) mg/dL Estimated GFR > 60 (>60) mL/min BUN/Creatinine Ratio 18.2 (6-22) Glucose 257 H (80-110) mg/dL Lactate (0.7-2.1) mmol/L Calcium 8.8 (8.4-10.2) mg/dL Total Bilirubin 0.5 (0.2-1.3) mg/dL AST 26 (17-59) IU/L ALT 19 (<50) IU/L Alkaline Phosphatase 66 (38-126) U/L Total Creatine Kinase 289 H (55-170) U/L CK-MB (CK-2) 1.85 (<2.37) ng/mL CK-MB (CK-2) Rel Index 0.6 L (1.5-5.0) % Troponin I 0.022 (0.01-0.034) ng/mL NT-Pro-B Natriuret Pep 301 H (<125) pg/mL Total Protein 7.5 (6.3-8.2) g/dL Albumin 4.2 (3.5-5.0) g/dL Globulin 3.3 (1.7-4.1) g/dL Albumin/Globulin Ratio 1.3 (1.0-2.8) Urine RBC (0-5/HPF) Urine WBC (0-5/HPF) Urine Bacteria (None) Ur Culture Indicated? Ketones (<0.27) mmol/L SARS-CoV-2 (PCR) (Negative) Influenza A (RT-PCR) (NEGATIVE) Influenza B (RT-PCR) (NEGATIVE) RSV (PCR) (Negative) Point of Care Testing Rapid Strep A Negative Glucose POC 245 Urine Dip Bedside Urine Glucose 500 mg/dl Bedside Urine Bilirubin - Negative Bedside Urine Ketone +++ 80 Urine Specific [place] 1.030 Bedside Urine Occult Blood +/- Bedside Urine pH 5.5 Bedside Urine Protein + 30 Bedside Urine Urobilinogen - Negative Bedside Urine Nitrite - Negative Bedside Urine Leukocytes - Negative Esterase Point of care testing: Point of Care Testing Rapid Strep A Negative Glucose POC 245 Urine Dip Bedside Urine Glucose 500 mg/dl Bedside Urine Bilirubin - Negative Bedside Urine Ketone +++ 80 Urine Specific [place] 1.030 Bedside Urine Occult Blood +/- Bedside Urine pH 5.5 Bedside Urine Protein + 30 Bedside Urine Urobilinogen - Negative Bedside Urine Nitrite - Negative Bedside Urine Leukocytes - Negative Esterase Imaging Data Chest x-ray: Radiologist's Impression: Close Chest X-Ray (Signed) Denver Sanchez - 05/03/22 [place] [address] XRay Report Signed Patient: Buster Riojas MR#: [id number] : 1950 Acct:[id number] Age/Sex: 71 / M Date of Service: 05/03/22 Loc: ED Accession Number: [id number] ?? Procedure: XR chest 1V Ordering Provider: Dat Donovan D.O. PROCEDURE:? XR CHEST 1V ? INDICATIONS:? septic workup ? TECHNIQUE:? One view of the chest was acquired.? ? COMPARISON:? None. ? FINDINGS:? ? Surgical changes and devices:? Midline sternal wires.? Mediastinal surgical clips present. ? Lungs and pleura:? Lungs are clear.? No pleural effusions or pneumothorax.? ? Mediastinum:? Mediastinal contours appear normal.? Heart size is normal.? ? Bones and chest wall:? No suspicious bony lesions.? Overlying soft tissues appear unremarkable.? ? IMPRESSION:? No acute cardiopulmonary findings ? ? ? Approved by: Denver Sanchez M.D. on 05/03/2022 at 11:00? Discharge Plan Departure Patient Disposition: Admitted as Observation Clinical Impression: COVID-19, Acute hypoxemic respiratory failure Admit Date/Time: 05/03/22 17:06 Admit Provider: Maya Mendoza
[2022-05-03] MEDS: LACTATED RINGERS 1,000 ML 1000 ML IV ×2 (10:37→13:34)
[2022-05-03] MEDS: ACETAMINOPHEN 325 MG TABLET 650 MG PO (10:56)
[2022-05-03 11:21] LABS: Add Manual Diff / Slide Review NO; Basophils Absolute Auto 0 /uL (0-100); Basophils Percent Auto 0.1 % (0-2); Eosinophils Absolute Auto 0 /uL (0-450); Eosinophils Percent Auto 0.1 % (2-4); Hematocrit 46.1 % (41-53); Hemoglobin 15.2 g/dL (13.5-17.5); Lymphocytes Absolute Auto 400 /uL (1100-4500); Lymphocytes Percent Auto 4.8 % (25-40); Mean Corpuscular HGB Conc 33.1 % (30-36); Mean Corpuscular Hemoglobin 29.4 PG (26-34); Monocytes Absolute Auto 700 /uL (0-900); Monocytes Percent Auto 7.8 % (3-14); Neutrophils Absolute Auto 7600 /uL (1500-7000); Neutrophils Percent Auto 87.2 % (50-75); Platelet Count 193 X10^3/uL (150-400); Red Blood Cell Count 5.17 X10^6/uL (4.5-5.9); White Blood Cell Count 8.7 X10^3/uL (4.5-11.0)
[2022-05-03 11:32] LABS: HEMOLYSIS < 15 (0-50); Lactate (Lactic Acid) 1.6 mmol/L (0.7-2.1)
[2022-05-03 11:38] LABS: Alanine Aminotransferase 21 IU/L (<50); Albumin 4.7 g/dL (3.5-5.0); Albumin Globulin Ratio 1.3 (1.0-2.8); Alkaline Phosphatase 76 U/L (38-126); Aspartate Aminotransferase 22 IU/L (17-59); BUN Creatinine Ratio 16.5 (6-22); Bilirubin Total 0.4 mg/dL (0.2-1.3); Blood Urea Nitrogen 20 mg/dL (9-20); Calcium 9.6 mg/dL (8.4-10.2); Carbon Dioxide 22 mmol/L (22-32); Chloride 95 mmol/L (98-107); Estimated Glomerular Filt Rate > 60 mL/min (>60); Globulin 3.7 g/dL (1.7-4.1); Glucose 302 mg/dL (80-110); Potassium 4.6 mmol/L (3.4-5.1); Sodium 135 mmol/L (137-145); Total Protein 8.4 g/dL (6.3-8.2)
[2022-05-03 11:59] LABS: Influenza A - CEPHEID Flu A NEGATIVE (NEGATIVE); Influenza B - CEPHEID Flu B NEGATIVE (NEGATIVE); Respiratory Syncytial Virus Negative (Negative)
[2022-05-03 12:05] LABS: COVID-19 CEPHEID 4-PLEX PCR POSITIVE (Negative)
[2022-05-03 12:15] LABS: PCO2 VBG 34.3 mmHg (45-50); PO2 VBG 35 mmHg (35-45); pH VBG 7.37 (7.33-7.43)
[2022-05-03 12:16] LABS: HCO3 VBG 20 mmol/L (23-28); Oxygen Saturation VBG 66 % (70-75); Total CO2 VBG 21 mmol/L (24-29)
[2022-05-03 12:26] LABS: Ketones (Beta-Hydroxybutyrate) 4.87 mmol/L (<0.27)
[2022-05-03 12:32] LABS: Bacteria Urine None Seen; Culture Indicated Urine Cult Not Indicated; RBC Urine None Seen (0-5/HPF); WBC Urine None Seen (0-5/HPF)
[2022-05-03 14:25] LABS: D Dimer 766 ng/ml (<500)
--- NOTE | 2022-05-03 14:41 | DI.CT.S_ITS ---
PROCEDURE: CT ANGIO CHEST PE PROTOCOL INDICATIONS: tachycardia, SOB, cough, COVID, critical Dimer TECHNIQUE: After the administration of intravenous contrast, 2 mm thick sections acquired from the pulmonary apices to the posterior costophrenic angles. For radiation dose reduction, the following was used: automated exposure control, adjustment of mA and/or kV according to patient size. COMPARISON: None. FINDINGS: Cardiovascular and Mediastinum: Heart size is normal. No evidence of thoracic aortic aneurysm. Pulmonary vasculature is unremarkable. No hiatal hernia. Thyroid gland unremarkable. Dense coronary artery [place] vascular calcification Lungs and Pleural Spaces: Mild peripheral ground-glass density. No focal nodule, pneumothorax or pleural effusion Lymph Nodes: No mediastinal, hilar or axillary adenopathy. Musculoskeletal: No evidence of rib fracture. Thoracic spine unremarkable. Chest wall and sternum intact. Midline sternal wires noted. No lytic or blastic lesions. Fluid distended esophagus noted. Upper abdomen: Visualized portions of the liver, spleen and kidneys are unremarkable. IMPRESSION: 1. No evidence of pulmonary embolism, aortic dissection or aneurysm. 2. Multifocal bilateral peripheral ground-glass densities consistent with community-acquired or viral pneumonia 3. Bilateral fluid-filled peripheral lower lobe bronchi consistent with mucous plugging without pulmonary consolidation Approved by: Denver Sanchez M.D. on 05/03/2022 at 15:48
[2022-05-03 15:40] LABS: Add Manual Diff / Slide Review NO; Basophils Absolute Auto 0 /uL (0-100); Basophils Percent Auto 0.2 % (0-2); Eosinophils Absolute Auto 0 /uL (0-450); Hematocrit 42.6 % (41-53); Hemoglobin 14.2 g/dL (13.5-17.5); Lymphocytes Absolute Auto 600 /uL (1100-4500); Lymphocytes Percent Auto 6.3 % (25-40); Mean Corpuscular HGB Conc 33.4 % (30-36); Mean Corpuscular Hemoglobin 29.5 PG (26-34); Mean Corpuscular Volume 88.3 fL (80-100); Monocytes Absolute Auto 600 /uL (0-900); Monocytes Percent Auto 6.3 % (3-14); Neutrophils Absolute Auto 8500 /uL (1500-7000); Neutrophils Percent Auto 87.2 % (50-75); Platelet Count 178 X10^3/uL (150-400); Red Blood Cell Count 4.82 X10^6/uL (4.5-5.9); Red Cell Distribution Width 12.7 % (11.6-14.8); White Blood Cell Count 9.7 X10^3/uL (4.5-11.0)
[2022-05-03 15:45] LABS: Alanine Aminotransferase 19 IU/L (<50); Albumin 4.2 g/dL (3.5-5.0); Albumin Globulin Ratio 1.3 (1.0-2.8); Alkaline Phosphatase 66 U/L (38-126); Aspartate Aminotransferase 26 IU/L (17-59); BUN Creatinine Ratio 18.2 (6-22); Bilirubin Total 0.5 mg/dL (0.2-1.3); Blood Urea Nitrogen 18 mg/dL (9-20); Calcium 8.8 mg/dL (8.4-10.2); Carbon Dioxide 20 mmol/L (22-32); Chloride 99 mmol/L (98-107); Creatine Kinase 289 U/L (55-170); Estimated Glomerular Filt Rate > 60 mL/min (>60); Globulin 3.3 g/dL (1.7-4.1); Glucose 257 mg/dL (80-110); HEMOLYSIS < 15 (0-50); Potassium 4.4 mmol/L (3.4-5.1); Sodium 135 mmol/L (137-145); Total Protein 7.5 g/dL (6.3-8.2)
[2022-05-03 15:56] LABS: NT-proBNP (BNP-Adult 18+) 301 pg/mL (<125); Troponin I 0.022 ng/mL (0.01-0.034)
[2022-05-03 16:00] LABS: CKMB % Relative Index 0.6 % (1.5-5.0); Creatine Kinase MB 1.85 ng/mL (<2.37)
--- NOTE | 2022-05-03 16:08 | PC.NURSE ---
late entry patient oxygen saturation dropped to 85%. placed on 3L NC. oxygen levels [place] to 89%. provider notified. labs redrawn, respiratory therapy called for eval and suction. after suction, oxygen levels [place] to 96% on 3L. patient transported to CT for PE angio, returned on room air per MD. oxygen levels 89% on room air. patient educated on coughing, pt unable to cough but does confirm he feels there is something in the back of his throat. pt placed back on 2L NC. noticed brown spot on pillow, patient denied vomitting today or previously. HOB elevated and suction on and at bedside. extensive education on deep breathing and coughing gone over with patient. continuous cardiac monitoring and oximetry. MD notified of all aspects of situation.
[2022-05-03] MEDS: DEXAMETHASONE 10 MG/ML VIAL 6 MG IV (17:13)
[2022-05-03] MEDS: cefTRIAXone 1,000 MG in SODIUM CHLORIDE 0.9% 100 ML 200 MG IV (17:13)
[2022-05-03] MEDS: AZITHROMYCIN 500 MG in DEXTROSE 5% IN WATER 250 ML 250 MG IV (17:49)
[2022-05-03] MEDS: SODIUM CHLORIDE 0.9% 1,000 ML 1000 ML IV (20:11)
[2022-05-03] MEDS: REMDESIVIR 200 MG in SODIUM CHLORIDE 0.9% 210 ML 250 MG IV (21:38)
--- NOTE | 2022-05-03 22:19 | P.HP_ITS ---
History of Present Illness History of Present Illness Date Patient Seen: 05/03/22 Time Patient Seen: 20:00 Chief complaint: GLF Narrative: Mr. Riojas is a 71M with PMH spina bifida, DM, CAD s/p CABG, hypothyroidism who presents to the hospital for a weakness and a fall. He started feeling ill within the last day. He noted primarily sore throat. Initially was denying chest pain. He came to the hospital via EMS primarily for the weakness. He was COVID positive. In the ED he developed worsening shortness of breath, cough, and hypoxemia. He was started on oxygen. He was afebrile, he was tachycardic and tachypneic. Labs notable for WBC 9.7, hgb 14.2, plts 178. Creatinine 0.99. Troponin 0.022. EKG showed sinus tachycardia. COVID positive. Chest xray showed no acute process. CTA was negative for PE but showed multifocal bilateral ground glass opacities and fluid filled lower lobe bronchi consistent with mucous plugging. He was ordered for antibiotics, steroids, and remdesivir and admitted for further treatment. Upon arrival to the floor he was in quite significant respiratory distress. His oxygen saturations remained in the 80s on nasal cannula, and therefore he was started on heated high flow and transferred to the ICU. Family history: spina bifida in multiple family members Social history: denies smoking tobacco Patient History Family & Social History Social History: household members none Safety & Behavioral: Feels Safe in Current Yes Environment Been Physically Hurt or No Threatened By a Person Tobacco & Substance use: Smoking Status Never smoker alcohol intake frequency holiday/special occasion Substance Use Type does not use Meds Home Medications and Allergies Home Medications Medication Instructions Recorded Confirmed Type metformin 1,000 mg tablet 1,000 mg PO BID 07/22/21 07/22/21 History citalopram 10 mg tablet 5 mg PO DAILY 07/23/21 07/23/21 History dapagliflozin 10 mg tablet 10 mg PO DAILY 07/23/21 07/23/21 History (Farxiga) glimepiride 1 mg tablet 1 mg PO DAILY 07/23/21 07/23/21 History levothyroxine 75 mcg tablet 75 mcg PO DAILY 07/23/21 05/03/22 History metoprolol tartrate 25 mg tablet 12.5 mg PO BID 07/23/21 05/03/22 History simvastatin 10 mg tablet 10 mg PO BEDTIME 07/23/21 05/03/22 History empagliflozin 25 mg tablet 25 mg PO DAILY 05/03/22 05/03/22 History (Jardiance) sertraline 50 mg tablet 50 mg PO DAILY 05/03/22 05/03/22 History trazodone 50 mg tablet 50 mg PO DAILY 05/03/22 05/03/22 History Allergies Allergy/AdvReac Type Severity Reaction Status Date / Time No Known Drug Allergies Allergy Verified 07/22/21 21:35 Review of Systems Review of Systems Narrative: 14 systems reviewed and negative aside from what is noted in HPI Exam Vital Signs (past 8 hours): - 05/03/22 15:41 05/03/22 14:30 05/03/22 14:30 Pulse Rate 120 H Respiratory Rate 20 28 H Blood Pressure 170/91 H Pulse Oximetry 96 95 Oxygen Delivery Method Nasal Cannula Oxygen Flow Rate 5 05/03/22 15:00 05/03/22 15:00 05/03/22 15:30 Pulse Rate 125 H 122 H Respiratory Rate 25 H 31 H Blood Pressure 154/76 H Pulse Oximetry 92 89 L Oxygen Delivery Method Oxygen Flow Rate 05/03/22 15:31 05/03/22 15:31 05/03/22 16:01 Pulse Rate 122 H 124 H Respiratory Rate 33 H 34 H Blood Pressure 186/94 H Pulse Oximetry 89 L 89 L Oxygen Delivery Method Oxygen Flow Rate 05/03/22 16:02 05/03/22 16:02 05/03/22 16:30 Pulse Rate 124 H Respiratory Rate 29 H Blood Pressure 172/92 H 182/94 H Pulse Oximetry 89 L Oxygen Delivery Method Oxygen Flow Rate 05/03/22 16:30 05/03/22 17:00 05/03/22 17:00 Pulse Rate 125 H 129 H Respiratory Rate 27 H 28 H Blood Pressure 157/85 H Pulse Oximetry 95 97 Oxygen Delivery Method Oxygen Flow Rate 05/03/22 17:30 05/03/22 17:30 05/03/22 17:59 Pulse Rate 134 H 136 H Respiratory Rate 32 H 28 H Blood Pressure 199/108 H Pulse Oximetry 96 96 Oxygen Delivery Method Oxygen Flow Rate 05/03/22 17:59 05/03/22 18:00 05/03/22 18:00 Pulse Rate 137 H Respiratory Rate 27 H Blood Pressure 175/90 H 173/91 H Pulse Oximetry 96 Oxygen Delivery Method Oxygen Flow Rate Oxygen Delivery Method Nasal Cannula Oxygen Flow Rate 5 Narrative Exam Narrative: GEN: severe respiratory distress HEENT: moist mucous membranes, PERRL NECK: trachea midline, no JVD PULM: coarse breath sounds, rhonchi bilaterally CV: tachycardic, no murmurs ABD: soft, nontender, nondistended, no organomegaly EXT: warm and well perfused with no edema NEURO: awake, alert, oriented, no focal deficits noted Objective Labs Result Diagrams: 05/03/22 15:19 05/03/22 15:19 Labs: Laboratory Results - last 24 hr 05/03/22 05/03/22 05/03/22 10:33 10:41 10:41 WBC 8.7 RBC 5.17 Hgb 15.2 Hct 46.1 MCV 89.0 MCH 29.4 MCHC 33.1 RDW 13.0 Plt Count 193 Neut % (Auto) 87.2 H Lymph % (Auto) 4.8 L [place] % (Auto) 7.8 Eos % (Auto) 0.1 L Baso % (Auto) 0.1 Neut # (Auto) 7600 H Lymph # (Auto) 400 L [place] # (Auto) 700 Eos # (Auto) 0 Baso # (Auto) 0 D-Dimer VBG pH VBG pCO2 VBG pO2 VBG HCO3 VBG Total CO2 VBG O2 Saturation VBG Base Excess Sodium 135 L Potassium 4.6 Chloride 95 L Carbon Dioxide 22 BUN 20 Creatinine 1.21 Estimated GFR > 60 BUN/Creatinine Ratio 16.5 Glucose 302 H Lactate Calcium 9.6 Total Bilirubin 0.4 AST 22 ALT 21 Alkaline Phosphatase 76 Total Creatine Kinase CK-MB (CK-2) CK-MB (CK-2) Rel Index Troponin I NT-Pro-B Natriuret Pep Total Protein 8.4 H Albumin 4.7 Globulin 3.7 Albumin/Globulin Ratio 1.3 Urine RBC Urine WBC Urine Bacteria Ur Culture Indicated? Ketones 4.87 H SARS-CoV-2 (PCR) Positive H Influenza A (RT-PCR) Flu a negative Influenza B (RT-PCR) Flu b negative RSV (PCR) Negative 05/03/22 05/03/22 05/03/22 10:41 10:41 12:01 WBC RBC Hgb Hct MCV MCH MCHC RDW Plt Count Neut % (Auto) Lymph % (Auto) [place] % (Auto) Eos % (Auto) Baso % (Auto) Neut # (Auto) Lymph # (Auto) [place] # (Auto) Eos # (Auto) Baso # (Auto) D-Dimer 766 H VBG pH VBG pCO2 VBG pO2 VBG HCO3 VBG Total CO2 VBG O2 Saturation VBG Base Excess Sodium Potassium Chloride Carbon Dioxide BUN Creatinine Estimated GFR BUN/Creatinine Ratio Glucose Lactate 1.6 Calcium Total Bilirubin AST ALT Alkaline Phosphatase Total Creatine Kinase CK-MB (CK-2) CK-MB (CK-2) Rel Index Troponin I NT-Pro-B Natriuret Pep Total Protein Albumin Globulin Albumin/Globulin Ratio Urine RBC None seen Urine WBC None seen Urine Bacteria None seen Ur Culture Indicated? Cult not indicated Ketones SARS-CoV-2 (PCR) Influenza A (RT-PCR) Influenza B (RT-PCR) RSV (PCR) 05/03/22 05/03/22 05/03/22 12:07 15:19 15:19 WBC 9.7 RBC 4.82 Hgb 14.2 Hct 42.6 MCV 88.3 MCH 29.5 MCHC 33.4 RDW 12.7 Plt Count 178 Neut % (Auto) 87.2 H Lymph % (Auto) 6.3 L [place] % (Auto) 6.3 Eos % (Auto) 0.0 L Baso % (Auto) 0.2 Neut # (Auto) 8500 H Lymph # (Auto) 600 L [place] # (Auto) 600 Eos # (Auto) 0 Baso # (Auto) 0 D-Dimer VBG pH 7.37 VBG pCO2 34.3 L VBG pO2 35 VBG HCO3 20 L VBG Total CO2 21 L VBG O2 Saturation 66 L VBG Base Excess -5.0 L Sodium 135 L Potassium 4.4 Chloride 99 Carbon Dioxide 20 L BUN 18 Creatinine 0.99 Estimated GFR > 60 BUN/Creatinine Ratio 18.2 Glucose 257 H Lactate Calcium 8.8 Total Bilirubin 0.5 AST 26 ALT 19 Alkaline Phosphatase 66 Total Creatine Kinase 289 H CK-MB (CK-2) 1.85 CK-MB (CK-2) Rel Index 0.6 L Troponin I 0.022 NT-Pro-B Natriuret Pep 301 H Total Protein 7.5 Albumin 4.2 Globulin 3.3 Albumin/Globulin Ratio 1.3 Urine RBC Urine WBC Urine Bacteria Ur Culture Indicated? Ketones SARS-CoV-2 (PCR) Influenza A (RT-PCR) Influenza B (RT-PCR) RSV (PCR) Assessment & Plan Assessment & Plan narrative: 1. Acute hypoxemic respiratory failure secondary to COVID pneumonia -patient may be undervaccinated against covid -has risk factors for severe disease with diabetes and cad -COVID positive on admission -quickly escalating oxygen requirements -abg on 100% heated high flow, 45L showed paO2 87 -initially accepted by physician for acute care, but requires ICU level of care for severe respiratory distress -placed on heated high flow oxygen initially with improvement in sats to the mid to high 90s -CTA negative for PE -started on dexamethasone, baricitinib, remdesivir -cover for possible bacterial pneumonia broadly for now with vanc, meropenem, azithromycin -ordered mrsa swab, sputum culture, blood cultures 2. Tachycardia -sinus tachycardia on EKG -suspect secondary to severity of illness -holding metoprolol for now, some component could be rebound -tachycardia did not improve with 500cc fluid -CTA negative for PE 3. Type 2 Diabetes -hold oral medications -ordered insulin sliding scale for now 4. Hypothyroidism -continue synthroid 5. CAD s/p CABG -continue statin CODE: Full Proxy: Sister Chiara Huizar [phone], other contact friend Buster Parson [phone] I have utilized all available resources to reconcile the patient's home medications Time Spent With Patient Critical Care time: I spent a total of [] minutes of critical care time on this patient's care today; this time is exclusive of procedural time. Quality VTE Deep Vein Thrombosis/Pulmonary Embolism Present on Admission: No
[2022-05-03] MEDS: BARICITINIB 2 MG TABLET 4 MG PO (22:23)
[2022-05-03] MEDS: INSULIN LISPRO 100 UNIT/ML 3ML VIAL SUBCUT (22:23)
--- NOTE | 2022-05-03 22:52 | DI.RAD.S_ITS ---
PROCEDURE: XR CHEST 1V INDICATIONS: sob, tachycardia worsening, mucous plugging TECHNIQUE: One view of the chest was acquired. COMPARISON: [facility], CR, XR CHEST 1V, 05/03/2022, 10:29. FINDINGS: Surgical changes and devices: Postsurgical changes redemonstrated in the mediastinum. Lungs and pleura: Evaluation is limited by rotation. There are increased right infrahilar opacities consistent with atelectasis or consolidation. No pleural effusions or pneumothorax. Mediastinum: Mediastinal contours appear unchanged. Heart size is normal. Bones and chest wall: No suspicious bony lesions. Overlying soft tissues appear unremarkable. IMPRESSION: 1. Increased right infrahilar opacities consistent with atelectasis or consolidation. Dictated by: Gage Nazario M.D. on 05/04/2022 at 1:03 Approved by: Gage Nazario M.D. on 05/04/2022 at 1:06
[2022-05-03] MEDS: MEROPENEM 1 GM in SODIUM CHLORIDE 0.9% 100 ML IV (23:46)
[2022-05-03] MEDS: VANCOMYCIN 1,500 MG/300 ML PIGGYBACK 150 MG IV (23:46)
[2022-05-04] VITALS (36 sets, daily range): BP systolic 104–154; BP diastolic 63–97; PULSE 103–146; RESP 26–119; TEMP 36.6–37; O2SAT 93–99
[2022-05-04 01:55] LABS: BUN Creatinine Ratio 15.7 (6-22); Blood Urea Nitrogen 18 mg/dL (9-20); Calcium 8.2 mg/dL (8.4-10.2); Carbon Dioxide 12 mmol/L (22-32); Chloride 101 mmol/L (98-107); Estimated Glomerular Filt Rate > 60 mL/min (>60); Glucose 278 mg/dL (80-110); HEMOLYSIS < 15 (0-50); Potassium 4.4 mmol/L (3.4-5.1); Sodium 134 mmol/L (137-145)
[2022-05-04 03:13] LABS: Magnesium 1.2 mg/dL (1.6-2.3)
[2022-05-04] MEDS: MAGNESIUM SULFATE 4 GM/100 ML PIGGYBACK IV (04:09)
[2022-05-04 04:12] LABS: Add Manual Diff / Slide Review NO; Basophils Absolute Auto 0 /uL (0-100); Basophils Percent Auto 0.1 % (0-2); Eosinophils Absolute Auto 0 /uL (0-450); Hematocrit 42.3 % (41-53); Hemoglobin 14.2 g/dL (13.5-17.5); Lymphocytes Absolute Auto 300 /uL (1100-4500); Mean Corpuscular HGB Conc 33.5 % (30-36); Mean Corpuscular Hemoglobin 29.7 PG (26-34); Mean Corpuscular Volume 88.6 fL (80-100); Monocytes Absolute Auto 400 /uL (0-900); Monocytes Percent Auto 6.4 % (3-14); Neutrophils Absolute Auto 5100 /uL (1500-7000); Neutrophils Percent Auto 88.5 % (50-75); Platelet Count 174 X10^3/uL (150-400); Red Blood Cell Count 4.77 X10^6/uL (4.5-5.9); Red Cell Distribution Width 13.2 % (11.6-14.8); White Blood Cell Count 5.8 X10^3/uL (4.5-11.0)
[2022-05-04 04:20] LABS: Lactate (Lactic Acid) 1.8 mmol/L (0.7-2.1)
--- NOTE | 2022-05-04 04:28 | PM.CN.EICU ---
History of Present Illness Consult details IF CAMERA ACTIVATED, patient seen via real-time interactive audiovisual communication: Camera activated Date Patient Seen: 05/04/22 Chief complaint: GLF Consent obtained for tele-endoscopy specialty technician care: Yes Patient Location: ICU Provider location (State): [place] Other participants/roles: RN Narrative: 71M with PMHx of spina bifida, T2DM, CAD s/p CABG, hypothyroidism who presented with malaise, sore throat. and chest pain. SARS-CoV2 (+). Pulmonary CTA (-) for PE and w/ bilateral GGOs. Started on dexamethasone, remdesivir and barictinib. Initially admitted to floor but required HFNC and transferred to the ICU. [facility] Social History household members: none Smoking Status: Never smoker Current Medications Current Medications Medications: Home Medications metformin 1,000 mg tablet 1,000 mg PO BID 07/22/21 [History Confirmed 07/22/21] citalopram 10 mg tablet 5 mg PO DAILY 07/23/21 [History Confirmed 07/23/21] dapagliflozin 10 mg tablet (Farxiga) 10 mg PO DAILY 07/23/21 [History Confirmed 07/23/21] glimepiride 1 mg tablet 1 mg PO DAILY 07/23/21 [History Confirmed 07/23/21] levothyroxine 75 mcg tablet 75 mcg PO DAILY 07/23/21 [History Confirmed 05/03/22] metoprolol tartrate 25 mg tablet 12.5 mg PO BID 07/23/21 [History Confirmed 05/03/22] simvastatin 10 mg tablet 10 mg PO BEDTIME 07/23/21 [History Confirmed 05/03/22] empagliflozin 25 mg tablet (Jardiance) 25 mg PO DAILY 05/03/22 [History Confirmed 05/03/22] sertraline 50 mg tablet 50 mg PO DAILY 05/03/22 [History Confirmed 05/03/22] trazodone 50 mg tablet 50 mg PO DAILY 05/03/22 [History Confirmed 05/03/22] Visit Medications (administered) Generic Name Dose Route Start Last Admin Trade Name Freq PRN Reason Stop Dose Admin Meropenem 1 gm/ Sodium 100 mls @ 200 mls/hr 05/03/22 22:45 05/04/22 00:43 Chloride IV Infused Q8H [facility] Infusion Vancomycin HCl/Dextrose 1,500 mg in 300 mls @ 150 mls/hr 05/03/22 23:30 05/04/22 02:00 Vancomycin IV Infused Q12H [facility] Infusion Magnesium Sulfate 4 gm in 100 mls @ 25 mls/hr 05/04/22 03:17 05/04/22 04:09 Magnesium Sulfate IV 05/04/22 07:16 25 mls/hr NOW ONE Administration Insulin Human Lispro 0 unit 05/03/22 21:00 05/03/22 22:23 Insulin Lispro 100 Unit/Ml 3ml Vial SUBCUT 2 unit ACHS KALEB Administration Protocol Exam Vital Signs (past 8 hours): - 05/03/22 22:00 05/03/22 23:00 05/03/22 23:53 Temperature 99.5 F 97.7 F Pulse Rate 143 H 145 H 143 H Respiratory Rate 31 H 32 H 25 H Blood Pressure 155/100 H 157/98 H 160/98 H Pulse Oximetry 90 L 97 98 Oxygen Delivery Method Oxygen Flow Rate 45 45 45 Fraction of Inspired Oxygen 0.78 05/04/22 00:00 05/04/22 00:00 05/04/22 01:00 Temperature Pulse Rate 140 H 130 H Respiratory Rate 27 H 26 H Blood Pressure 154/97 H 142/90 H Pulse Oximetry 98 96 Oxygen Delivery Method Heated High Flow Oxygen Flow Rate 45 45 Fraction of Inspired Oxygen 0.78 0.78 05/04/22 02:00 05/04/22 03:27 05/04/22 03:00 Temperature Pulse Rate 130 H 134 H Respiratory Rate 28 H 119 H Blood Pressure 145/85 H 136/81 Pulse Oximetry 97 96 Oxygen Delivery Method High Flow Nasal Cannula Oxygen Flow Rate 45 45 45 Fraction of Inspired Oxygen 0.78 70 0.78 05/04/22 04:00 05/04/22 04:00 Temperature Pulse Rate 135 H Respiratory Rate 27 H Blood Pressure 143/89 H Pulse Oximetry 95 Oxygen Delivery Method Heated High Flow Oxygen Flow Rate 45 Fraction of Inspired Oxygen 0.78 Fraction of Inspired Oxygen 0.78 Oxygen Delivery Method Heated High Flow Oxygen Flow Rate 45 Const General: comfortable Resp Effort & Inspection: other (tachypneic in low 30s on HFNC 35 L/min 75% FiO2 but able to speak normally) Objective Labs Result Diagrams: 05/04/22 03:57 05/04/22 01:26 Labs: Laboratory Results - last 24 hr 05/03/22 05/03/22 05/03/22 10:33 10:41 10:41 WBC 8.7 RBC 5.17 Hgb 15.2 Hct 46.1 MCV 89.0 MCH 29.4 MCHC 33.1 RDW 13.0 Plt Count 193 Neut % (Auto) 87.2 H Lymph % (Auto) 4.8 L [place] % (Auto) 7.8 Eos % (Auto) 0.1 L Baso % (Auto) 0.1 Neut # (Auto) 7600 H Lymph # (Auto) 400 L [place] # (Auto) 700 Eos # (Auto) 0 Baso # (Auto) 0 D-Dimer VBG pH VBG pCO2 VBG pO2 VBG HCO3 VBG Total CO2 VBG O2 Saturation VBG Base Excess Sodium 135 L Potassium 4.6 Chloride 95 L Carbon Dioxide 22 BUN 20 Creatinine 1.21 Estimated GFR > 60 BUN/Creatinine Ratio 16.5 Glucose 302 H Lactate Calcium 9.6 Magnesium Total Bilirubin 0.4 AST 22 ALT 21 Alkaline Phosphatase 76 Total Creatine Kinase CK-MB (CK-2) CK-MB (CK-2) Rel Index Troponin I NT-Pro-B Natriuret Pep Total Protein 8.4 H Albumin 4.7 Globulin 3.7 Albumin/Globulin Ratio 1.3 Urine RBC Urine WBC Urine Bacteria Ur Culture Indicated? Nasal Screen MRSA (PCR) Ketones 4.87 H SARS-CoV-2 (PCR) Positive H Influenza A (RT-PCR) Flu a negative Influenza B (RT-PCR) Flu b negative RSV (PCR) Negative 05/03/22 05/03/22 05/03/22 10:41 10:41 12:01 WBC RBC Hgb Hct MCV MCH MCHC RDW Plt Count Neut % (Auto) Lymph % (Auto) [place] % (Auto) Eos % (Auto) Baso % (Auto) Neut # (Auto) Lymph # (Auto) [place] # (Auto) Eos # (Auto) Baso # (Auto) D-Dimer 766 H VBG pH VBG pCO2 VBG pO2 VBG HCO3 VBG Total CO2 VBG O2 Saturation VBG Base Excess Sodium Potassium Chloride Carbon Dioxide BUN Creatinine Estimated GFR BUN/Creatinine Ratio Glucose Lactate 1.6 Calcium Magnesium Total Bilirubin AST ALT Alkaline Phosphatase Total Creatine Kinase CK-MB (CK-2) CK-MB (CK-2) Rel Index Troponin I NT-Pro-B Natriuret Pep Total Protein Albumin Globulin Albumin/Globulin Ratio Urine RBC None seen Urine WBC None seen Urine Bacteria None seen Ur Culture Indicated? Cult not indicated Nasal Screen MRSA (PCR) Ketones SARS-CoV-2 (PCR) Influenza A (RT-PCR) Influenza B (RT-PCR) RSV (PCR) 05/03/22 05/03/22 05/03/22 12:07 15:19 15:19 WBC 9.7 RBC 4.82 Hgb 14.2 Hct 42.6 MCV 88.3 MCH 29.5 MCHC 33.4 RDW 12.7 Plt Count 178 Neut % (Auto) 87.2 H Lymph % (Auto) 6.3 L [place] % (Auto) 6.3 Eos % (Auto) 0.0 L Baso % (Auto) 0.2 Neut # (Auto) 8500 H Lymph # (Auto) 600 L [place] # (Auto) 600 Eos # (Auto) 0 Baso # (Auto) 0 D-Dimer VBG pH 7.37 VBG pCO2 34.3 L VBG pO2 35 VBG HCO3 20 L VBG Total CO2 21 L VBG O2 Saturation 66 L VBG Base Excess -5.0 L Sodium 135 L Potassium 4.4 Chloride 99 Carbon Dioxide 20 L BUN 18 Creatinine 0.99 Estimated GFR > 60 BUN/Creatinine Ratio 18.2 Glucose 257 H Lactate Calcium 8.8 Magnesium Total Bilirubin 0.5 AST 26 ALT 19 Alkaline Phosphatase 66 Total Creatine Kinase 289 H CK-MB (CK-2) 1.85 CK-MB (CK-2) Rel Index 0.6 L Troponin I 0.022 NT-Pro-B Natriuret Pep 301 H Total Protein 7.5 Albumin 4.2 Globulin 3.3 Albumin/Globulin Ratio 1.3 Urine RBC Urine WBC Urine Bacteria Ur Culture Indicated? Nasal Screen MRSA (PCR) Ketones SARS-CoV-2 (PCR) Influenza A (RT-PCR) Influenza B (RT-PCR) RSV (PCR) 05/03/22 05/04/22 05/04/22 22:45 01:26 01:26 WBC RBC Hgb Hct MCV MCH MCHC RDW Plt Count Neut % (Auto) Lymph % (Auto) [place] % (Auto) Eos % (Auto) Baso % (Auto) Neut # (Auto) Lymph # (Auto) [place] # (Auto) Eos # (Auto) Baso # (Auto) D-Dimer VBG pH VBG pCO2 VBG pO2 VBG HCO3 VBG Total CO2 VBG O2 Saturation VBG Base Excess Sodium 134 L Potassium 4.4 Chloride 101 Carbon Dioxide 12 L BUN 18 Creatinine 1.15 Estimated GFR > 60 BUN/Creatinine Ratio 15.7 Glucose 278 H Lactate Calcium 8.2 L Magnesium 1.2 L Total Bilirubin AST ALT Alkaline Phosphatase Total Creatine Kinase CK-MB (CK-2) CK-MB (CK-2) Rel Index Troponin I NT-Pro-B Natriuret Pep Total Protein Albumin Globulin Albumin/Globulin Ratio Urine RBC Urine WBC Urine Bacteria Ur Culture Indicated? Nasal Screen MRSA (PCR) Negative for mrsa Ketones SARS-CoV-2 (PCR) Influenza A (RT-PCR) Influenza B (RT-PCR) RSV (PCR) 05/04/22 05/04/22 03:57 03:57 WBC 5.8 RBC 4.77 Hgb 14.2 Hct 42.3 MCV 88.6 MCH 29.7 MCHC 33.5 RDW 13.2 Plt Count 174 Neut % (Auto) 88.5 H Lymph % (Auto) 5.0 L [place] % (Auto) 6.4 Eos % (Auto) 0.0 L Baso % (Auto) 0.1 Neut # (Auto) 5100 Lymph # (Auto) 300 L [place] # (Auto) 400 Eos # (Auto) 0 Baso # (Auto) 0 D-Dimer VBG pH VBG pCO2 VBG pO2 VBG HCO3 VBG Total CO2 VBG O2 Saturation VBG Base Excess Sodium Potassium Chloride Carbon Dioxide BUN Creatinine Estimated GFR BUN/Creatinine Ratio Glucose Lactate 1.8 Calcium Magnesium Total Bilirubin AST ALT Alkaline Phosphatase Total Creatine Kinase CK-MB (CK-2) CK-MB (CK-2) Rel Index Troponin I NT-Pro-B Natriuret Pep Total Protein Albumin Globulin Albumin/Globulin Ratio Urine RBC Urine WBC Urine Bacteria Ur Culture Indicated? Nasal Screen MRSA (PCR) Ketones SARS-CoV-2 (PCR) Influenza A (RT-PCR) Influenza B (RT-PCR) RSV (PCR) Assessment & Plan Assessment and plan (1) Acute hypoxemic respiratory failure due to COVID-19: Status: Acute Plan: -HFNC -Fluid conservative strategy -Baricitinib/remdesivir/dexamethasone -Empiric vancomycin pending MRSA swab -Ceftriaxone/azithromycin (2) Hypothyroidism: Status: Acute Plan: -Levothyroxine (3) Coronary artery disease: Status: Acute Plan: -Would resume outpt PO metoprolol (4) Type 2 diabetes mellitus: Status: Acute Plan: -SUBQ insulin protocol Time Spent With Patient Critical Care time: I spent a total of 35 minutes of critical care time on this patient's care today; this time is exclusive of procedural time.
[2022-05-04 05:20] LABS: HCO3 ABG 13 mmol/L (22-26); Oxygen Saturation ABG 96 % (95-100); PCO2 ABG 23.9 mmHg (35-45); PO2 ABG 87 mmHg (80-100); TCO2 ABG 14 mmol/L (21-31); pH ABG 7.31 (7.35-7.45)
[2022-05-04 05:21] LABS: Fractionated Inspired Oxygen 45
[2022-05-04 05:23] LABS: HCO3 ABG 10 mmol/L (22-26); PCO2 ABG 19.7 mmHg (35-45); PO2 ABG 69 mmHg (80-100); TCO2 ABG 10 mmol/L (21-31); pH ABG 7.31 (7.35-7.45)
[2022-05-04 05:24] LABS: Fractionated Inspired Oxygen 75; Oxygen Saturation ABG 92 % (95-100)
[2022-05-04] MEDS: MEROPENEM 1 GM in SODIUM CHLORIDE 0.9% 100 ML IV ×2 (06:07→17:49)
--- NOTE | 2022-05-04 06:16 | PC.NURSE ---
Pt transferred from floor to ICU due to increased O2 demand. Upon arrival to ICU, Vancomycin and merrem were given. Pt HR was in the 120s-130s. A&O to name, age and birthday. Lungs exhibiting some wheezing and coarse crackles. Pt incontinent. Pt able to follow commands. Around 0530, pt hr spiked to 140s. Has been sustaining. Mentation has slightly declined, as he is not following commands as well and unable to swallow without coughing. Hospitalist notified. Ordered to start insulin drip on DKA protocol.
[2022-05-04] MEDS: DEXTROSE 5%-0.9% NS 1,000 ML 100 ML IV (07:01)
[2022-05-04] MEDS: INSULIN DRIP PREMIX 100 UNIT/100 ML PLAST..BAG 6.68 UNIT IV (07:07)
[2022-05-04 08:14] LABS: BUN Creatinine Ratio 14.6 (6-22); Blood Urea Nitrogen 20 mg/dL (9-20); Chloride 100 mmol/L (98-107); Estimated Glomerular Filt Rate 56 mL/min (>60); Glucose 310 mg/dL (80-110); Potassium 4.7 mmol/L (3.4-5.1); Sodium 134 mmol/L (137-145)
[2022-05-04] MEDS: PANTOPRAZOLE 40 MG VIAL IV (08:20)
[2022-05-04] MEDS: ENOXAPARIN 40 MG/0.4 ML SYRINGE SUBCUT (08:20)
[2022-05-04] MEDS: DEXAMETHASONE 10 MG/ML VIAL 6 MG IV (08:20)
[2022-05-04 08:43] LABS: Calcium 8.6 mg/dL (8.4-10.2); HEMOLYSIS 22 (0-50)
[2022-05-04 08:47] LABS: Carbon Dioxide 7 mmol/L (22-32)
[2022-05-04] MEDS: DEXTROSE 5%-0.45% NS 1,000 ML 100 ML IV (09:16)
--- NOTE | 2022-05-04 09:31 | P.TELICUPN_ITS ---
Subjective Subjective IF CAMERA ACTIVATED, patient seen via real-time interactive audiovisual communication: Camera activated Date Patient Seen: 05/04/22 Consent obtained for tele-supervisor wrapping room care: Yes Patient Location: ICU Provider location (State): [place] Other participants/roles: RN Interval history: Admitted for acute hypoxemia respiratory failure secondary to COVID pneumonia. Started on insulin gtt per DKA protocol. Currently HFNC 45/78% w/ SPO2 ~95%. Subjectively patient reports feeling better overall. Labs -> AG 27 and Co2 7. Current Medications Current Medications Medications: Home Medications metformin 1,000 mg tablet 1,000 mg PO BID 07/22/21 [History Confirmed 07/22/21] citalopram 10 mg tablet 5 mg PO DAILY 07/23/21 [History Confirmed 07/23/21] dapagliflozin 10 mg tablet (Farxiga) 10 mg PO DAILY 07/23/21 [History Confirmed 07/23/21] glimepiride 1 mg tablet 1 mg PO DAILY 07/23/21 [History Confirmed 07/23/21] levothyroxine 75 mcg tablet 75 mcg PO DAILY 07/23/21 [History Confirmed 05/03/22] metoprolol tartrate 25 mg tablet 12.5 mg PO BID 07/23/21 [History Confirmed 05/03/22] simvastatin 10 mg tablet 10 mg PO BEDTIME 07/23/21 [History Confirmed 05/03/22] empagliflozin 25 mg tablet (Jardiance) 25 mg PO DAILY 05/03/22 [History Confir med 05/03/22] sertraline 50 mg tablet 50 mg PO DAILY 05/03/22 [History Confirmed 05/03/22] trazodone 50 mg tablet 50 mg PO DAILY 05/03/22 [History Confirmed 05/03/22] Visit Medications (administered) Generic Name Dose Route Start Last Admin Trade Name Freq PRN Reason Stop Dose Admin Dexamethasone 6 mg 05/04/22 09:00 05/04/22 08:20 Dexamethasone 10 Mg/Ml Vial IV 6 mg DAILY KALEB Administration Enoxaparin Sodium 40 mg 05/04/22 09:00 05/04/22 08:20 Enoxaparin 40 Mg/0.4 Ml Syringe SUBCUT 40 mg DAILY KALEB Administration Meropenem 1 gm/ Sodium 100 mls @ 200 mls/hr 05/03/22 22:45 05/04/22 06:54 Chloride IV Infused Q8H KALEB Infusion INSULIN DRIP PREMIX 100 unit in 100 mls @ 6 mls/hr 05/04/22 06:30 05/04/22 07:07 Myxredlin Drip Premix IV 0.1 units/kg/hr TITRATE KALEB 6.68 mls/hr Administration Protocol Dextrose/Sodium Chloride 1,000 mls @ 150 mls/hr 05/04/22 06:45 05/04/22 07:01 Dextrose 5%-0.9% Ns IV 100 mls/hr CONT KALEB Administration Dextrose/Sodium Chloride 1,000 mls @ 100 mls/hr 05/04/22 09:00 05/04/22 09:16 Dextrose 5%-0.45% Ns IV 100 mls/hr CONT KALEB Administration Insulin Human Lispro 0 unit 05/03/22 21:00 05/04/22 08:20 Insulin Lispro 100 Unit/Ml 3ml Vial SUBCUT Not Given ACHS KALEB Protocol Levothyroxine Sodium 75 mcg 05/04/22 06:00 05/04/22 06:12 Levothyroxine 75 Mcg Tablet PO Not Given 0600 [facility] Pantoprazole Sodium 40 mg 05/04/22 09:00 05/04/22 08:20 Pantoprazole 40 Mg Vial IV 40 mg DAILY KALEB Administration Objective Labs Result Diagrams: 05/04/22 03:57 05/04/22 07:28 Labs: Laboratory Results - last 24 hr 05/03/22 05/03/22 05/03/22 10:33 10:41 10:41 WBC 8.7 RBC 5.17 Hgb 15.2 Hct 46.1 MCV 89.0 MCH 29.4 MCHC 33.1 RDW 13.0 Plt Count 193 Neut % (Auto) 87.2 H Lymph % (Auto) 4.8 L [place] % (Auto) 7.8 Eos % (Auto) 0.1 L Baso % (Auto) 0.1 Neut # (Auto) 7600 H Lymph # (Auto) 400 L [place] # (Auto) 700 Eos # (Auto) 0 Baso # (Auto) 0 D-Dimer ABG pH ABG pCO2 ABG pO2 ABG HCO3 ABG Total CO2 ABG O2 Saturation ABG Base Excess VBG pH VBG pCO2 VBG pO2 VBG HCO3 VBG Total CO2 VBG O2 Saturation VBG Base Excess FiO2 Sodium 135 L Potassium 4.6 Chloride 95 L Carbon Dioxide 22 BUN 20 Creatinine 1.21 Estimated GFR > 60 BUN/Creatinine Ratio 16.5 Glucose 302 H Lactate Calcium 9.6 Magnesium Total Bilirubin 0.4 AST 22 ALT 21 Alkaline Phosphatase 76 Total Creatine Kinase CK-MB (CK-2) CK-MB (CK-2) Rel Index Troponin I NT-Pro-B Natriuret Pep Total Protein 8.4 H Albumin 4.7 Globulin 3.7 Albumin/Globulin Ratio 1.3 Urine RBC Urine WBC Urine Bacteria Ur Culture Indicated? Nasal Screen MRSA (PCR) Ketones 4.87 H SARS-CoV-2 (PCR) Positive H Influenza A (RT-PCR) Flu a negative Influenza B (RT-PCR) Flu b negative RSV (PCR) Negative 05/03/22 05/03/22 05/03/22 10:41 10:41 12:01 WBC RBC Hgb Hct MCV MCH MCHC RDW Plt Count Neut % (Auto) Lymph % (Auto) [place] % (Auto) Eos % (Auto) Baso % (Auto) Neut # (Auto) Lymph # (Auto) [place] # (Auto) Eos # (Auto) Baso # (Auto) D-Dimer 766 H ABG pH ABG pCO2 ABG pO2 ABG HCO3 ABG Total CO2 ABG O2 Saturation ABG Base Excess VBG pH VBG pCO2 VBG pO2 VBG HCO3 VBG Total CO2 VBG O2 Saturation VBG Base Excess FiO2 Sodium Potassium Chloride Carbon Dioxide BUN Creatinine Estimated GFR BUN/Creatinine Ratio Glucose Lactate 1.6 Calcium Magnesium Total Bilirubin AST ALT Alkaline Phosphatase Total Creatine Kinase CK-MB (CK-2) CK-MB (CK-2) Rel Index Troponin I NT-Pro-B Natriuret Pep Total Protein Albumin Globulin Albumin/Globulin Ratio Urine RBC None seen Urine WBC None seen Urine Bacteria None seen Ur Culture Indicated? Cult not indicated Nasal Screen MRSA (PCR) Ketones SARS-CoV-2 (PCR) Influenza A (RT-PCR) Influenza B (RT-PCR) RSV (PCR) 05/03/22 05/03/22 05/03/22 12:07 15:19 15:19 WBC 9.7 RBC 4.82 Hgb 14.2 Hct 42.6 MCV 88.3 MCH 29.5 MCHC 33.4 RDW 12.7 Plt Count 178 Neut % (Auto) 87.2 H Lymph % (Auto) 6.3 L [place] % (Auto) 6.3 Eos % (Auto) 0.0 L Baso % (Auto) 0.2 Neut # (Auto) 8500 H Lymph # (Auto) 600 L [place] # (Auto) 600 Eos # (Auto) 0 Baso # (Auto) 0 D-Dimer ABG pH ABG pCO2 ABG pO2 ABG HCO3 ABG Total CO2 ABG O2 Saturation ABG Base Excess VBG pH 7.37 VBG pCO2 34.3 L VBG pO2 35 VBG HCO3 20 L VBG Total CO2 21 L VBG O2 Saturation 66 L VBG Base Excess -5.0 L FiO2 Sodium 135 L Potassium 4.4 Chloride 99 Carbon Dioxide 20 L BUN 18 Creatinine 0.99 Estimated GFR > 60 BUN/Creatinine Ratio 18.2 Glucose 257 H Lactate Calcium 8.8 Magnesium Total Bilirubin 0.5 AST 26 ALT 19 Alkaline Phosphatase 66 Total Creatine Kinase 289 H CK-MB (CK-2) 1.85 CK-MB (CK-2) Rel Index 0.6 L Troponin I 0.022 NT-Pro-B Natriuret Pep 301 H Total Protein 7.5 Albumin 4.2 Globulin 3.3 Albumin/Globulin Ratio 1.3 Urine RBC Urine WBC Urine Bacteria Ur Culture Indicated? Nasal Screen MRSA (PCR) Ketones SARS-CoV-2 (PCR) Influenza A (RT-PCR) Influenza B (RT-PCR) RSV (PCR) 05/03/22 05/03/22 05/04/22 20:30 22:45 01:26 WBC RBC Hgb Hct MCV MCH MCHC RDW Plt Count Neut % (Auto) Lymph % (Auto) [place] % (Auto) Eos % (Auto) Baso % (Auto) Neut # (Auto) Lymph # (Auto) [place] # (Auto) Eos # (Auto) Baso # (Auto) D-Dimer ABG pH 7.31 L ABG pCO2 23.9 L* ABG pO2 87 ABG HCO3 13 L ABG Total CO2 14 L ABG O2 Saturation 96 ABG Base Excess -12.0 L VBG pH VBG pCO2 VBG pO2 VBG HCO3 VBG Total CO2 VBG O2 Saturation VBG Base Excess FiO2 45 Sodium 134 L Potassium 4.4 Chloride 101 Carbon Dioxide 12 L BUN 18 Creatinine 1.15 Estimated GFR > 60 BUN/Creatinine Ratio 15.7 Glucose 278 H Lactate Calcium 8.2 L Magnesium Total Bilirubin AST ALT Alkaline Phosphatase Total Creatine Kinase CK-MB (CK-2) CK-MB (CK-2) Rel Index Troponin I NT-Pro-B Natriuret Pep Total Protein Albumin Globulin Albumin/Globulin Ratio Urine RBC Urine WBC Urine Bacteria Ur Culture Indicated? Nasal Screen MRSA (PCR) Negative for mrsa Ketones SARS-CoV-2 (PCR) Influenza A (RT-PCR) Influenza B (RT-PCR) RSV (PCR) 05/04/22 05/04/22 05/04/22 01:26 03:03 03:57 WBC 5.8 RBC 4.77 Hgb 14.2 Hct 42.3 MCV 88.6 MCH 29.7 MCHC 33.5 RDW 13.2 Plt Count 174 Neut % (Auto) 88.5 H Lymph % (Auto) 5.0 L [place] % (Auto) 6.4 Eos % (Auto) 0.0 L Baso % (Auto) 0.1 Neut # (Auto) 5100 Lymph # (Auto) 300 L [place] # (Auto) 400 Eos # (Auto) 0 Baso # (Auto) 0 D-Dimer ABG pH 7.31 L ABG pCO2 19.7 L* ABG pO2 69 L ABG HCO3 10 L ABG Total CO2 10 L ABG O2 Saturation 92 L ABG Base Excess -16.0 L VBG pH VBG pCO2 VBG pO2 VBG HCO3 VBG Total CO2 VBG O2 Saturation VBG Base Excess FiO2 75 Sodium Potassium Chloride Carbon Dioxide BUN Creatinine Estimated GFR BUN/Creatinine Ratio Glucose Lactate Calcium Magnesium 1.2 L Total Bilirubin AST ALT Alkaline Phosphatase Total Creatine Kinase CK-MB (CK-2) CK-MB (CK-2) Rel Index Troponin I NT-Pro-B Natriuret Pep Total Protein Albumin Globulin Albumin/Globulin Ratio Urine RBC Urine WBC Urine Bacteria Ur Culture Indicated? Nasal Screen MRSA (PCR) Ketones SARS-CoV-2 (PCR) Influenza A (RT-PCR) Influenza B (RT-PCR) RSV (PCR) 05/04/22 05/04/22 03:57 07:28 WBC RBC Hgb Hct MCV MCH MCHC RDW Plt Count Neut % (Auto) Lymph % (Auto) [place] % (Auto) Eos % (Auto) Baso % (Auto) Neut # (Auto) Lymph # (Auto) [place] # (Auto) Eos # (Auto) Baso # (Auto) D-Dimer ABG pH ABG pCO2 ABG pO2 ABG HCO3 ABG Total CO2 ABG O2 Saturation ABG Base Excess VBG pH VBG pCO2 VBG pO2 VBG HCO3 VBG Total CO2 VBG O2 Saturation VBG Base Excess FiO2 Sodium 134 L Potassium 4.7 Chloride 100 Carbon Dioxide 7 L* BUN 20 Creatinine 1.37 H Estimated GFR 56 L BUN/Creatinine Ratio 14.6 Glucose 310 H Lactate 1.8 Calcium 8.6 Magnesium Total Bilirubin AST ALT Alkaline Phosphatase Total Creatine Kinase CK-MB (CK-2) CK-MB (CK-2) Rel Index Troponin I NT-Pro-B Natriuret Pep Total Protein Albumin Globulin Albumin/Globulin Ratio Urine RBC Urine WBC Urine Bacteria Ur Culture Indicated? Nasal Screen MRSA (PCR) Ketones SARS-CoV-2 (PCR) Influenza A (RT-PCR) Influenza B (RT-PCR) RSV (PCR) Exam Vital Signs (past 8 hours): - 05/04/22 02:00 05/04/22 03:27 05/04/22 03:00 Pulse Rate 130 H 134 H Respiratory Rate 28 H 119 H Blood Pressure 145/85 H 136/81 Pulse Oximetry 97 96 Oxygen Delivery Method High Flow Nasal Cannula Oxygen Flow Rate 45 45 45 Fraction of Inspired Oxygen 0.78 70 0.78 05/04/22 04:00 05/04/22 04:00 05/04/22 05:00 Pulse Rate 135 H 138 H Respiratory Rate 27 H 28 H Blood Pressure 143/89 H 144/96 H Pulse Oximetry 95 97 Oxygen Delivery Method Heated High Flow Oxygen Flow Rate 45 45 Fraction of Inspired Oxygen 0.78 0.78 05/04/22 06:00 05/04/22 07:00 05/04/22 07:00 Pulse Rate 146 H 141 H Respiratory Rate 27 H 36 H Blood Pressure 148/93 H 139/86 Pulse Oximetry 94 95 Oxygen Delivery Method Oxygen Flow Rate 45 Fraction of Inspired Oxygen 0.78 05/04/22 07:30 05/04/22 07:59 05/04/22 08:00 Pulse Rate 141 H 141 H Respiratory Rate 38 H 38 H Blood Pressure 128/76 128/76 Pulse Oximetry 95 96 Oxygen Delivery Method Oxygen Flow Rate Fraction of Inspired Oxygen 05/04/22 08:00 05/04/22 08:30 Pulse Rate 141 H 141 H Respiratory Rate 36 H 39 H Blood Pressure Pulse Oximetry 95 96 Oxygen Delivery Method Oxygen Flow Rate Fraction of Inspired Oxygen Fraction of Inspired Oxygen 0.78 Oxygen Delivery Method Heated High Flow Oxygen Flow Rate 45 Narrative Exam Narrative: NOt in distress. ON HFNC. Quality TeleICU VTE Deep Vein Thrombosis/Pulmonary Embolism Present on Admission: No Assessment & Plan Assessment & Plan narrative: NEURO: # Decondition -- Seek early mobility RESP: # Acute hypoxemia respiratory failure -- Secondary to COVID PNA w/ possible superimposed bacterial PNA -- COVID rx as below -- On meropenem and azithromcyin -- HOB elevation -- Consider NIVVP for increased WOB and worsening hypoxemia -- Goal SpO2 > 88% CVS: -- Goal SBP < 140 ID: # COVID PNA -- On baricitinib, remdesivir, and decadron -- On contact/airborne precaution w/ meticulous hygiene # Concern for bacterial PNA -- On meropenem and azithromycin -- Recommend sending for a resp cx, urinary legionella/strep -- Follow up cx data : # Metabolic acidosis -- Secondary to euglycemia DKA -- On insulin gtt per DKA protocol -- BMP every 4 hours -- High lytes goal -- Transition to lantus once AG < 12 and Co2 > 17 ENDO: # DKA -- Secondary to decadron, acute sickness, and jardiance -- On DKA rx as above -- Trend BMP every 4 hiours -- Accucheck every 1 hr D/w RN and patient at bedside. Time Spent With Patient Critical Care time: I spent a total of 38 minutes of critical care time on this patient's care today; this time is exclusive of procedural time.
[2022-05-04] MEDS: BARICITINIB 2 MG TABLET 4 MG PO (10:16)
--- NOTE | 2022-05-04 12:03 | DI.RAD.S_ITS ---
PROCEDURE: XR CHEST FOR PICC 1V INDICATIONS: PICC placement confirmation COMPARISON: [facility], CR, XR CHEST 1V, 05/03/2022, 22:52. FINDINGS: PICC was placed by the intravenous therapy team from the right side. Fluoroscopic spot film demonstrates the tip of PICC projecting to the area of cavoatrial junction. IMPRESSION: Tip of PICC projects to the area of cavoatrial junction. Approved by: Denver Sanchez M.D. on 05/04/2022 at 13:29
[2022-05-04] MEDS: DEXTROSE 10 % IN WATER 1,000 ML 66.8 ML IV (12:26)
[2022-05-04 13:12] LABS: HCO3 VBG 18 mmol/L (23-28); Oxygen Saturation VBG 62 % (70-75); PCO2 VBG 31.6 mmHg (45-50); PO2 VBG 33 mmHg (35-45); Total CO2 VBG 19 mmol/L (24-29); pH VBG 7.37 (7.33-7.43)
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
--- NOTE | 2022-05-04 14:27 | PC.NURSE ---
1250 BMP lab results have no resulted yet. Lab notified, will continue to follow.
--- NOTE | 2022-05-04 14:45 | P.PN_ITS ---
Subjective Subjective Date Patient Seen: 05/04/22 Interval history: Patient denies complaints at this time, but remains weak and slightly confused. Denies chest pain, abdominal pain, nausea, vomiting, edema. Feels somewhat short of breath but good on current amount of supplemental oxygen (heated high flow). Exam Vital Signs (past 8 hours): - 05/04/22 07:00 05/04/22 07:00 05/04/22 07:30 Temperature Pulse Rate 141 H 141 H Respiratory Rate 36 H 38 H Blood Pressure 139/86 Pulse Oximetry 95 95 Oxygen Delivery Method Oxygen Flow Rate 05/04/22 07:59 05/04/22 08:00 05/04/22 08:00 Temperature Pulse Rate 141 H 141 H Respiratory Rate 38 H 36 H Blood Pressure 128/76 128/76 Pulse Oximetry 96 95 Oxygen Delivery Method Oxygen Flow Rate 05/04/22 08:30 05/04/22 09:47 05/04/22 08:00 Temperature Pulse Rate 141 H Respiratory Rate 39 H Blood Pressure Pulse Oximetry 96 95 Oxygen Delivery Method Heated High Flow Heated High Flow Oxygen Flow Rate 45 05/04/22 09:00 05/04/22 09:00 05/04/22 09:30 Temperature Pulse Rate 138 H 140 H Respiratory Rate 35 H 33 H Blood Pressure 114/65 Pulse Oximetry 95 96 Oxygen Delivery Method Oxygen Flow Rate 05/04/22 10:00 05/04/22 10:00 05/04/22 10:30 Temperature Pulse Rate 133 H 135 H Respiratory Rate 32 H 33 H Blood Pressure 117/67 Pulse Oximetry 93 94 Oxygen Delivery Method Oxygen Flow Rate 05/04/22 11:00 05/04/22 12:00 05/04/22 12:00 Temperature Pulse Rate 134 H 132 H 137 H Respiratory Rate 34 H 27 H 32 H Blood Pressure 119/73 111/66 Pulse Oximetry 93 94 95 Oxygen Delivery Method Oxygen Flow Rate 05/04/22 12:30 05/04/22 12:45 05/04/22 13:00 Temperature 98.6 F Pulse Rate 141 H Respiratory Rate 35 H Blood Pressure Pulse Oximetry 95 Oxygen Delivery Method High Flow Nasal Cannula Oxygen Flow Rate Fraction of Inspired Oxygen 0.78 Oxygen Delivery Method High Flow Nasal Cannula Oxygen Flow Rate 45 Narrative Exam Narrative: GEN: lethargic and ill appearing male, no acute distress. HEENT: moist mucous membranes, PERRL NECK: trachea midline, no JVD PULM: coarse breath sounds, rhonchi bilaterally without wheezing. CV: tachycardic and regular rhythm, no murmurs ABD: soft, nontender, nondistended, no organomegaly EXT: warm and well perfused with no edema NEURO: awake, alert, oriented, no focal deficits noted Objective Labs Result Diagrams: 05/04/22 03:57 05/04/22 07:28 Labs: Laboratory Results - last 24 hr 05/03/22 05/03/22 05/03/22 15:19 15:19 20:30 WBC 9.7 RBC 4.82 Hgb 14.2 Hct 42.6 MCV 88.3 MCH 29.5 MCHC 33.4 RDW 12.7 Plt Count 178 Neut % (Auto) 87.2 H Lymph % (Auto) 6.3 L [place] % (Auto) 6.3 Eos % (Auto) 0.0 L Baso % (Auto) 0.2 Neut # (Auto) 8500 H Lymph # (Auto) 600 L [place] # (Auto) 600 Eos # (Auto) 0 Baso # (Auto) 0 ABG pH 7.31 L ABG pCO2 23.9 L* ABG pO2 87 ABG HCO3 13 L ABG Total CO2 14 L ABG O2 Saturation 96 ABG Base Excess -12.0 L VBG pH VBG pCO2 VBG pO2 VBG HCO3 VBG Total CO2 VBG O2 Saturation VBG Base Excess FiO2 45 Sodium 135 L Potassium 4.4 Chloride 99 Carbon Dioxide 20 L BUN 18 Creatinine 0.99 Estimated GFR > 60 BUN/Creatinine Ratio 18.2 Glucose 257 H Lactate Calcium 8.8 Magnesium Total Bilirubin 0.5 AST 26 ALT 19 Alkaline Phosphatase 66 Total Creatine Kinase 289 H CK-MB (CK-2) 1.85 CK-MB (CK-2) Rel Index 0.6 L Troponin I 0.022 NT-Pro-B Natriuret Pep 301 H Total Protein 7.5 Albumin 4.2 Globulin 3.3 Albumin/Globulin Ratio 1.3 Nasal Screen MRSA (PCR) 05/03/22 05/04/22 05/04/22 22:45 01:26 01:26 WBC RBC Hgb Hct MCV MCH MCHC RDW Plt Count Neut % (Auto) Lymph % (Auto) [place] % (Auto) Eos % (Auto) Baso % (Auto) Neut # (Auto) Lymph # (Auto) [place] # (Auto) Eos # (Auto) Baso # (Auto) ABG pH ABG pCO2 ABG pO2 ABG HCO3 ABG Total CO2 ABG O2 Saturation ABG Base Excess VBG pH VBG pCO2 VBG pO2 VBG HCO3 VBG Total CO2 VBG O2 Saturation VBG Base Excess FiO2 Sodium 134 L Potassium 4.4 Chloride 101 Carbon Dioxide 12 L BUN 18 Creatinine 1.15 Estimated GFR > 60 BUN/Creatinine Ratio 15.7 Glucose 278 H Lactate Calcium 8.2 L Magnesium 1.2 L Total Bilirubin AST ALT Alkaline Phosphatase Total Creatine Kinase CK-MB (CK-2) CK-MB (CK-2) Rel Index Troponin I NT-Pro-B Natriuret Pep Total Protein Albumin Globulin Albumin/Globulin Ratio Nasal Screen MRSA (PCR) Negative for mrsa 05/04/22 05/04/22 05/04/22 03:03 03:57 03:57 WBC 5.8 RBC 4.77 Hgb 14.2 Hct 42.3 MCV 88.6 MCH 29.7 MCHC 33.5 RDW 13.2 Plt Count 174 Neut % (Auto) 88.5 H Lymph % (Auto) 5.0 L [place] % (Auto) 6.4 Eos % (Auto) 0.0 L Baso % (Auto) 0.1 Neut # (Auto) 5100 Lymph # (Auto) 300 L [place] # (Auto) 400 Eos # (Auto) 0 Baso # (Auto) 0 ABG pH 7.31 L ABG pCO2 19.7 L* ABG pO2 69 L ABG HCO3 10 L ABG Total CO2 10 L ABG O2 Saturation 92 L ABG Base Excess -16.0 L VBG pH VBG pCO2 VBG pO2 VBG HCO3 VBG Total CO2 VBG O2 Saturation VBG Base Excess FiO2 75 Sodium Potassium Chloride Carbon Dioxide BUN Creatinine Estimated GFR BUN/Creatinine Ratio Glucose Lactate 1.8 Calcium Magnesium Total Bilirubin AST ALT Alkaline Phosphatase Total Creatine Kinase CK-MB (CK-2) CK-MB (CK-2) Rel Index Troponin I NT-Pro-B Natriuret Pep Total Protein Albumin Globulin Albumin/Globulin Ratio Nasal Screen MRSA (PCR) 05/04/22 05/04/22 07:28 12:58 WBC RBC Hgb Hct MCV MCH MCHC RDW Plt Count Neut % (Auto) Lymph % (Auto) [place] % (Auto) Eos % (Auto) Baso % (Auto) Neut # (Auto) Lymph # (Auto) [place] # (Auto) Eos # (Auto) Baso # (Auto) ABG pH ABG pCO2 ABG pO2 ABG HCO3 ABG Total CO2 ABG O2 Saturation ABG Base Excess VBG pH 7.37 VBG pCO2 31.6 L VBG pO2 33 L VBG HCO3 18 L VBG Total CO2 19 L VBG O2 Saturation 62 L VBG Base Excess -7.0 L FiO2 Sodium 134 L Potassium 4.7 Chloride 100 Carbon Dioxide 7 L* BUN 20 Creatinine 1.37 H Estimated GFR 56 L BUN/Creatinine Ratio 14.6 Glucose 310 H Lactate Calcium 8.6 Magnesium Total Bilirubin AST ALT Alkaline Phosphatase Total Creatine Kinase CK-MB (CK-2) CK-MB (CK-2) Rel Index Troponin I NT-Pro-B Natriuret Pep Total Protein Albumin Globulin Albumin/Globulin Ratio Nasal Screen MRSA (PCR) [facility] Social History household members: none Smoking Status: Never smoker Assessment & Plan Assessment & Plan narrative: 1. Sepsis with Acute hypoxemic respiratory failure, acute toxic/metabolic encephalopathy, secondary to COVID pneumonia with possible superimposed bacterial pneumonia. -patient may be undervaccinated against covid -has risk factors for severe disease with diabetes and cad -COVID positive on admission -quickly escalating O2 requirements, remains today on heated high flow oxygen -CTA negative for PE -started on dexamethasone, baricitinib, remdesivir, will continue. -cover for possible bacterial pneumonia broadly for now with vanc, meropenem. Discontinue azitho. -MRSA swab negative, sputum culture, blood cultures pending. If still improving tomorrow can discontinue vancomycin. -encephalopathy likely worsened with DKA and acidosis, now improving with insulin infusion. 2. Tachycardia -sinus tachycardia on EKG -suspect secondary to severity of illness and likely dka. -can resume home metoprolol today. -tachycardia did not improve with 500cc fluid -CTA negative for PE 3. Type 2 Diabetes with DKA -hold oral medications -started on insulin infusion after worsening acidosis with bicarb of 7 this AM, glucose was in the 200s but he is on an SGLT-2 at home. Venous access was difficult, now with PICC line in place. -improving acidosis today with insulin infusion -continue insulin infusion for now. okay for diet when he is more alert. 4. Hypothyroidism -continue synthroid 5. CAD s/p CABG -continue statin CODE: Full Proxy: Sister Chiara Huizar [phone], other contact friend Buster Hoppercorie [phone] I have utilized all available resources to reconcile the patient's home medications I spent 35 minutes providing critical care management this patient. This excludes time spent in performing separately billed procedures. Time Spent With Patient Critical Care time: I spent a total of [] minutes of critical care time on this patient's care today; this time is exclusive of procedural time. Quality VTE Deep Vein Thrombosis/Pulmonary Embolism Present on Admission: No
--- NOTE | 2022-05-04 15:11 | PC.NURSE ---
Patient had 13 beats if VTACH, laying in bed at the time. Awakens and denies complaints. Dr. Randall notified, no new orders received. BMP still not resulted yet at this time, Dr. Randall notified of that as well. Lab states that equipment has been now and they are being fixed at this time. Will continue to monitor.
[2022-05-04 15:24] LABS: Chloride 104 mmol/L (98-107)
[2022-05-04 15:45] LABS: BUN Creatinine Ratio 16.8 (6-22); Blood Urea Nitrogen 23 mg/dL (9-20); Calcium 8.3 mg/dL (8.4-10.2); Carbon Dioxide 17 mmol/L (22-32); Estimated Glomerular Filt Rate 56 mL/min (>60); Glucose 155 mg/dL (80-110); Sodium 136 mmol/L (137-145)
[2022-05-04 15:49] LABS: HEMOLYSIS 71 (0-50)
[2022-05-04 15:50] LABS: Potassium 4.5 mmol/L (3.4-5.1)
[2022-05-04 16:10] LABS: Magnesium 2.2 mg/dL (1.6-2.3)
[2022-05-04 17:13] LABS: Phosphorous 1.3 mg/dL (2.3-3.7)
[2022-05-04 17:14] LABS: BUN Creatinine Ratio 18.4 (6-22); Blood Urea Nitrogen 25 mg/dL (9-20); Calcium 8.2 mg/dL (8.4-10.2); Carbon Dioxide 18 mmol/L (22-32); Chloride 106 mmol/L (98-107); Estimated Glomerular Filt Rate 56 mL/min (>60); Glucose 172 mg/dL (80-110); HEMOLYSIS 109 (0-50); Potassium 4.6 mmol/L (3.4-5.1); Sodium 132 mmol/L (137-145)
[2022-05-04 19:04] LABS: BUN Creatinine Ratio 19.5 (6-22); Blood Urea Nitrogen 26 mg/dL (9-20); Calcium 8.1 mg/dL (8.4-10.2); Carbon Dioxide 18 mmol/L (22-32); Chloride 104 mmol/L (98-107); Estimated Glomerular Filt Rate 58 mL/min (>60); Glucose 177 mg/dL (80-110); HEMOLYSIS 31 (0-50); Sodium 134 mmol/L (137-145)
--- NOTE | 2022-05-04 20:16 | PM.ICURNDS ---
- Date Patient Seen: 05/04/22 Time Patient Seen: 20:16 :: This patient was seen via real time interactive two-way audiovisual telecommunication with sarah RN Note: Patient alert and conversant. Reports he is feeling well. Tachy to the 120s, improved from 140s earlier in the day. RR in the 20s. Satting high 90s on HFNC 45L/75%. BP WNL. Continues on Insulin drip, D5-1/2NS @ 100. Unable to tolerate PO at this time, coughing; Able to swallow pills. Recent labs show bicarb improving, AG closing. Mg WNL. K 4, Phos low. Plan to restart home Metop (12.5 mg BID), replete KCL, replete Phos. Recommended that RT titrate down FiO2 for goal sats >88%. When patient able to tolerate diet (perhaps retry in morning), can stop insulin drip and transition to long-acting. Would also recommend DC Vancomycin given negative MRSA nares.
[2022-05-04] MEDS: VANCOMYCIN 1,250 MG/250 ML PIGGYBACK 250 MG IV (20:42)
[2022-05-04] MEDS: POTASSIUM PHOSPHATE 15 MMOL in SODIUM CHLORIDE 0.9% 250 ML 63.75 MMOL IV (21:48)
[2022-05-04] MEDS: REMDESIVIR 100 MG in SODIUM CHLORIDE 0.9% 230 ML 250 MG IV (22:03)
[2022-05-04] MEDS: SODIUM CHLORIDE 0.9% FLUSH 10 ML IV (22:03)
[2022-05-04] MEDS: METOPROLOL TARTRATE 5 MG/5 ML INJ IV (22:27)
--- NOTE | 2022-05-04 23:06 | PC.NURSE ---
Addendum entered by Kaitlynn Kiser R.N. 05/05/22 06:00: Disregard heparin order. Clarified with piper installer that patient is not in Afib. Ordered to not put in for heparin drip. Addendum entered by Kaitlynn Kiser R.N. 05/05/22 05:46: Contacted piper installer about pt not being able to swallow metoprolol. Stated that as long as blood pressure sand heart rate do not become too high to disregard metoprolol for now. [employer] also ordered heparin drip due to pt not being fully anticoagulated and tachycardia, prophylactically for Afib. Original Note: [employer] called for rounds. Potassium phosphate and pt's home metoprolol ordered. Pt unable to follow commands and swallow PO metoprolol. Hospitalist called. One time dose of 5 mg IV metoprolol ordered.
[2022-05-05] VITALS (32 sets, daily range): BP systolic 92–148; BP diastolic 63–87; PULSE 98–136; RESP 25–42; TEMP 36.8–37.1; O2SAT 91–96
[2022-05-05 00:57] LABS: BUN Creatinine Ratio 17.3 (6-22); Blood Urea Nitrogen 27 mg/dL (9-20); Calcium 7.8 mg/dL (8.4-10.2); Carbon Dioxide 14 mmol/L (22-32); Chloride 108 mmol/L (98-107); Estimated Glomerular Filt Rate 48 mL/min (>60); Glucose 146 mg/dL (80-110); HEMOLYSIS < 15 (0-50); Potassium 3.8 mmol/L (3.4-5.1); Sodium 135 mmol/L (137-145)
[2022-05-05] MEDS: MEROPENEM 1 GM in SODIUM CHLORIDE 0.9% 100 ML IV ×2 (05:31→18:01)
[2022-05-05 05:39] LABS: BUN Creatinine Ratio 19.6 (6-22); Blood Urea Nitrogen 30 mg/dL (9-20); Calcium 7.9 mg/dL (8.4-10.2); Carbon Dioxide 15 mmol/L (22-32); Chloride 107 mmol/L (98-107); Estimated Glomerular Filt Rate 49 mL/min (>60); Glucose 175 mg/dL (80-110); Sodium 134 mmol/L (137-145)
[2022-05-05 05:48] LABS: HEMOLYSIS 80 (0-50)
[2022-05-05 06:13] LABS: Phosphorous 2.6 mg/dL (2.3-3.7)
[2022-05-05] MEDS: DEXTROSE 10 % IN WATER 1,000 ML 66.8 ML IV (07:52)
--- NOTE | 2022-05-05 09:37 | P.TELICUPN_ITS ---
Subjective Subjective IF CAMERA ACTIVATED, patient seen via real-time interactive audiovisual communication: Camera activated Date Patient Seen: 05/05/22 Consent obtained for tele-paper conservator care: Yes Patient Location: ICU Provider location (State): [place] Other participants/roles: RN Interval history: No acute issues overnight. HR in the 120-130s, sinus tachycardia. On HFNC 45/67% On insulin gtt. Current Medications Current Medications Medications: Home Medications metformin 1,000 mg tablet 1,000 mg PO BID 07/22/21 [History Confirmed 07/22/21] citalopram 10 mg tablet 5 mg PO DAILY 07/23/21 [History Confirmed 07/23/21] dapagliflozin 10 mg tablet (Farxiga) 10 mg PO DAILY 07/23/21 [History Confirmed 07/23/21] glimepiride 1 mg tablet 1 mg PO DAILY 07/23/21 [History Confirmed 07/23/21] levothyroxine 75 mcg tablet 75 mcg PO DAILY 07/23/21 [History Confirmed 05/03/22] metoprolol tartrate 25 mg tablet 12.5 mg PO BID 07/23/21 [History Confirmed 05/03/22] simvastatin 10 mg tablet 10 mg PO BEDTIME 07/23/21 [History Confirmed 05/03/22] empagliflozin 25 mg tablet (Jardiance) 25 mg PO DAILY 05/03/22 [History Confirmed 05/03/22] sertraline 50 mg tablet 50 mg PO DAILY 05/03/22 [History Confirmed 05/03/22] trazodone 50 mg tablet 50 mg PO DAILY 05/03/22 [History Confirmed 05/03/22] Visit Medications (administered) Generic Name Dose Route Start Last Admin Trade Name Freq PRN Reason Stop Dose Admin Dexamethasone 6 mg 05/04/22 09:00 05/04/22 08:20 Dexamethasone 10 Mg/Ml Vial IV 6 mg DAILY KALEB Administration Enoxaparin Sodium 40 mg 05/04/22 09:00 05/04/22 08:20 Enoxaparin 40 Mg/0.4 Ml Syringe SUBCUT 40 mg DAILY KALEB Administration Remdesivir 100 mg/ Sodium 250 mls @ 250 mls/hr 05/04/22 21:00 05/05/22 05:25 Chloride IV 05/07/22 21:59 Infused DAILY@2100 KALEB Infusion INSULIN DRIP PREMIX 100 unit in 100 mls @ 6 mls/hr 05/04/22 06:30 05/05/22 07:17 Myxredlin Drip Premix IV 0.02 units/kg/hr TITRATE KALEB 1.336 mls/hr Titration Protocol Dextrose/Sodium Chloride 1,000 mls @ 100 mls/hr 05/04/22 09:00 05/05/22 07:15 Dextrose 5%-0.45% Ns IV 0 mls/hr CONT KALEB Infusion Vancomycin HCl 1,250 mg in 250 mls @ 250 mls/hr 05/04/22 21:00 05/04/22 22:10 Vancomycin IV Infused Q24H KALEB Infusion Dextrose 1,000 mls @ 66.8 mls/hr 05/04/22 12:30 05/05/22 07:52 D10w IV 66.8 mls/hr CONT KALEB Administration Meropenem 1 gm/ Sodium 100 mls @ 200 mls/hr 05/04/22 18:00 05/05/22 05:31 Chloride IV 200 mls/hr Q12H KALEB Administration Insulin Human Lispro 0 unit 05/03/22 21:00 05/05/22 08:46 Insulin Lispro 100 Unit/Ml 3ml Vial SUBCUT Not Given ACHS [facility] Protocol Levothyroxine Sodium 75 mcg 05/04/22 06:00 05/05/22 07:02 Levothyroxine 75 Mcg Tablet PO Not Given 0600 [facility] Metoprolol Tartrate 12.5 mg 05/04/22 21:00 05/04/22 22:18 Metoprolol Ir 25 Mg Tablet PO Not Given BID [facility] Pantoprazole Sodium 40 mg 05/04/22 09:00 05/04/22 08:20 Pantoprazole 40 Mg Vial IV 40 mg DAILY KALEB Administration Sodium Chloride 10 ml 05/04/22 21:00 05/04/22 22:03 Sodium Chloride 0.9% Flush IV 10 ml BID KALEB Administration Objective Labs Result Diagrams: 05/04/22 03:57 05/05/22 05:11 Labs: Laboratory Results - last 24 hr 05/04/22 05/04/22 05/04/22 12:50 12:58 15:41 VBG pH 7.37 VBG pCO2 31.6 L VBG pO2 33 L VBG HCO3 18 L VBG Total CO2 19 L VBG O2 Saturation 62 L VBG Base Excess -7.0 L Sodium 136 L 132 L Potassium 4.5 4.6 Chloride 104 106 Carbon Dioxide 17 L 18 L BUN 23 H 25 H Creatinine 1.37 H 1.36 H Estimated GFR 56 L 56 L BUN/Creatinine Ratio 16.8 18.4 Glucose 155 H D 172 H Calcium 8.3 L 8.2 L Phosphorus Magnesium 05/04/22 05/04/22 05/04/22 15:41 15:41 18:40 VBG pH VBG pCO2 VBG pO2 VBG HCO3 VBG Total CO2 VBG O2 Saturation VBG Base Excess Sodium 134 L Potassium 4.0 Chloride 104 Carbon Dioxide 18 L BUN 26 H Creatinine 1.33 H Estimated GFR 58 L BUN/Creatinine Ratio 19.5 Glucose 177 H Calcium 8.1 L Phosphorus 1.3 L Magnesium 2.2 05/05/22 05/05/22 00:24 05:11 VBG pH VBG pCO2 VBG pO2 VBG HCO3 VBG Total CO2 VBG O2 Saturation VBG Base Excess Sodium 135 L 134 L Potassium 3.8 4.0 Chloride 108 H 107 Carbon Dioxide 14 L 15 L BUN 27 H 30 H Creatinine 1.56 H 1.53 H Estimated GFR 48 L 49 L BUN/Creatinine Ratio 17.3 19.6 Glucose 146 H 175 H Calcium 7.8 L 7.9 L Phosphorus 2.6 D Magnesium Exam Vital Signs (past 8 hours): - 05/05/22 02:00 05/05/22 03:00 05/05/22 04:00 Temperature Pulse Rate 130 H 127 H Respiratory Rate 30 H 27 H Blood Pressure 146/75 H 138/73 Pulse Oximetry 95 94 Oxygen Delivery Method Heated High Flow Oxygen Flow Rate 45 45 Fraction of Inspired Oxygen 0.77 0.77 05/05/22 04:00 05/05/22 05:00 05/05/22 06:00 Temperature 98.6 F Pulse Rate 125 H 126 H 127 H Respiratory Rate 29 H 25 H 30 H Blood Pressure 132/75 121/78 118/72 Pulse Oximetry 96 96 94 Oxygen Delivery Method Oxygen Flow Rate 45 45 45 Fraction of Inspired Oxygen 0.77 0.77 0.77 05/05/22 08:28 Temperature Pulse Rate 126 H Respiratory Rate 28 H Blood Pressure Pulse Oximetry 96 Oxygen Delivery Method Oxygen Flow Rate Fraction of Inspired Oxygen Fraction of Inspired Oxygen 0.77 Oxygen Delivery Method Heated High Flow Oxygen Flow Rate 45 Narrative Exam Narrative: Not in distress. On HFNC. Quality TeleICU VTE Deep Vein Thrombosis/Pulmonary Embolism Present on Admission: No Assessment & Plan Assessment & Plan narrative: NEURO: # Decondition -- Seek early mobility RESP: # Acute hypoxemia respiratory failure -- Secondary to COVID PNA w/ possible superimposed bacterial PNA -- COVID rx as below -- On meropenem, vancomycin, and azithromcyin -- HOB elevation -- Goal SpO2 > 88% CVS: -- Goal SBP < 140 # Sinus tachycardia -- Secondary to stress response and sepsis -- Avoid over treating HR as this can lead to hypotension as this is a compensatory mechanism ID: # COVID PNA -- On baricitinib, remdesivir, and decadron -- On contact/airborne precaution w/ meticulous hygiene # Concern for bacterial PNA -- Cx negative to date -- Recommend dc vancomycin -- On meropenem and azithromycin -- Follow up cx data : # Metabolic acidosis? -- Secondary to euglycemia DKA -- On insulin gtt per DKA protocol -- AG closed but Co2 is low 17 -- If Co2 remains low along with normal AG then consider switching D51/2NS to 75 mEQ sodium bicaronate + D5W -- BMP every 4 hours -- High lytes goal -- Transition to lantus once AG < 12 and Co2 > 17 ENDO: # DKA -- Secondary to decadron, acute sickness, and jardiance -- On DKA rx as above -- Trend BMP every 4 hiours -- Accucheck every 1 hr Time Spent With Patient Critical Care time: I spent a total of 32 minutes of critical care time on this patient's care today; this time is exclusive of procedural time.
[2022-05-05] MEDS: ENOXAPARIN 40 MG/0.4 ML SYRINGE SUBCUT (10:01)
[2022-05-05] MEDS: PANTOPRAZOLE 40 MG VIAL IV (10:01)
[2022-05-05] MEDS: SODIUM CHLORIDE 0.9% FLUSH 10 ML IV ×2 (10:02→20:41)
[2022-05-05] MEDS: DEXAMETHASONE 10 MG/ML VIAL 6 MG IV (10:02)
[2022-05-05 10:45] LABS: BUN Creatinine Ratio 20.3 (6-22); Blood Urea Nitrogen 31 mg/dL (9-20); Calcium 7.9 mg/dL (8.4-10.2); Carbon Dioxide 17 mmol/L (22-32); Chloride 106 mmol/L (98-107); Estimated Glomerular Filt Rate 49 mL/min (>60); Glucose 149 mg/dL (80-110); Potassium 4.5 mmol/L (3.4-5.1); Sodium 134 mmol/L (137-145)
[2022-05-05 10:46] LABS: HEMOLYSIS 119 (0-50)
[2022-05-05] MEDS: DEXTROSE 5%-0.45% NS 1,000 ML 100 ML IV (11:36)
[2022-05-05] MEDS: METOPROLOL IR 25 MG TABLET 12.5 MG PO ×2 (12:10→20:40)
[2022-05-05] MEDS: LEVOTHYROXINE 75 MCG TABLET PO (12:11)
--- NOTE | 2022-05-05 12:13 | PC.NURSE ---
swallow eval/med pass 1210 metoprolol and levothyroxine administered with this RN and Speech therapist supervision. pt was able to swallow pills down with small sip of liquid but then had a wet cough and was able to bring up sputum to be suctioned. pt remains with HOB elevated. speech therapist states that she will return around 1430 to reassess.
--- NOTE | 2022-05-05 13:09 | ST.IPCSEOM ---
Visit Care Team Role Provider Type Doctor Janay MD Primary Care Provider Non-Staff Specialty: Medical Address: Phone: Fax: Email: Samira Warren MD Other Providers Physician Specialty: Medical Address: Phone: Fax: Email: Vivian Singh MD Other Providers Physician Specialty: Medical Address: Phone: Fax: Email: Trevon Marquez MD Other Providers Physician Specialty: Medical Address: [facility] [place], [address] Phone: Fax: Email: Matt Singh MD Other Providers Physician Specialty: Internal Medicine Address: Phone: Fax: Email: Augustine Roberto MD Other Providers Physician Specialty: Medical Address: Phone: Fax: Email: Umu Armas MD Other Providers Physician Specialty: Internal Medicine Address: [address] [place] [address], [address] Phone: Fax: Email: [email or web address] Eduard Moore MD Other Providers Physician Specialty: Internal Medicine Address: Phone: Fax: Email: Félix Guthrie MD Other Providers Physician Specialty: Medical Address: Phone: Fax: Email: Joby Comer MD Other Providers Physician Specialty: Internal Medicine Address: Phone: Fax: Email: Heriberto Pillai MD Other Providers Physician Specialty: Medical Address: [address] [place] [address], [address] Phone: Fax: Email: Liliana Talamantes MD Other Providers Physician Specialty: Medical Address: Phone: Fax: Email: Annie Jaime Other Providers Physician Specialty: Medical Address: Phone: Fax: Email: Dat Donovan DO Emergency Provider Physician Referring Provider Specialty: Emergency Medicine Address: [address] [place] [address], [address] Email: [email or web address] Maya Mendoza MD Admit Provider Physician Attending Provider Specialty: Family Practice Address: [address] [place] [address], [id number] Phone: Fax: Email: [email or web address] Current Diagnoses Hypothyroidism, unspecified (05/03/22) Type 2 diabetes mellitus without complications (05/03/22) Atherosclerotic heart disease of [place] coronary artery without angina pectoris (05/03/22) Acute respiratory failure with hypoxia (05/03/22) COVID-19 (05/03/22) Speech-Language Pathology Swallow Evaluation STACKER [employer]ENER Clinical Swallow Evaluation Start: 05/05/22 12:35 Freq: Status: Active Protocol: Document 05/05/22 12:36 BONNIE (Rec: 05/05/22 13:09 ZACHK [id number]) Clinical Swallow Evaluation Session Time Visit Start Time 11:40 Visit Stop Time 12:15 Total Visit Minutes 35 Referral Reason for Referral dyspohagia Setting Assessment Location Acute Care Visit Type Note Type Initial evaluation Next Note Type Next Note Type Re-evaluation Patient Information Identification Type Name,Wristband History PER H&P: Mr. Riojas is a 71M with PMH spina bifida, DM, CAD s/p CABG, hypothyroidism who presents to the hospital for a weakness and a fall. He started feeling ill within the last day. He noted primarily sore throat. Initially was denying chest pain. He came to the hospital via EMS primarily for the weakness. He was COVID positive. In the ED he developed worsening shortness of breath, cough, and hypoxemia. He was started on oxygen. He was afebrile, he was tachycardic and tachypneic. Labs notable for WBC 9.7, hgb 14.2, plts 178. Creatinine 0.99. Troponin 0.022. EKG showed sinus tachycardia. COVID positive. Chest xray showed no acute process. CTA was negative for PE but showed multifocal bilateral ground glass opacities and fluid filled lower lobe bronchi consistent with mucous plugging. He was ordered for antibiotics, steroids, and remdesivir and admitted for further treatment . Upon arrival to the floor he was in quite significant respiratory distress. His oxygen saturations remained in the 80s on nasal cannula, and therefore he was started on heated high flow and transferred to the ICU. Subjective Observations Pt was in bed anxious to resume eating. Pt currently NPO. Pt repositioned in the bed in an upright position. Reported by Patient Other Symptoms Coughing,Difficulty swallowing liquids,Difficulty swallowing pills,Difficulty swallowing solids Comment Pt produced a wet cough. Suction on at bedside. Current Diet Nothing by mouth Objective Assessment Mental Status Alert,Responsive,Cooperative Comment OME observed informally. No overt deficits noted. Speech was clear and articulate Food and Liquid Trials Liquids Trialed [place] Administration Type Controlled cup sip,Straw Pharyngeal Impairment Moderately impaired Pharyngeal Phase Comments nectar thick liquids trialed via straw and controlled cup sip. PO meds with NTL also trialed. Pt was able to swallow medications with NTL. Swallow response observed to be delayed. Cues to swallow needed for all trials. Delayed wet cough with suction needed after each of 3 trials. Pt unable to clear airway on his own due to overall weakness. Cont NPO status at this point. Will reassess this afternoon. Fatigue/Endurance Moderate fatigue Findings Swallowing Function Pharyngeal phase dysphagia Severity of Swallow Impairment Moderately impaired Contributing Factors to Swallow Reduced oral strength/ Impairment coordination/sensation, Impaired velopharyngeal closure/coordination,Delayed swallow initiation,Excessive pharyngeal residue Prognosis Good Based on Age,Comorbidities Comment Continue NPO status at this time. If swallow does not improve with pt overall iprovement, may consider MBSS. Impact on Safety and Functioning Risk for aspiration,Risk for inadequate nutrition/hydration Recommendations Swallowing Treatment Yes Frequency 1-2x/day while inpatient status Recommended Solids Nothing by Mouth Recommended Liquids Nothing by Mouth Safety Precautions/Swallowing 1 to 1 close supervision,Feed Recommendations only when alert,Reduce distractions,Remain upright ( 90 degrees) during all oral intake,Needs verbal cues to use recommended strategies, Upright position at least 30 minutes after meals,Slow rate; swallow between bites,Sip by straw only,Set-up assistance, Family assistance/supervision Medication Recommendations As Tolerated,Whole in Carrier, Crushed in Carrier Discharge Recommendations senior living facility,Home with Home Health Education Patient/Caregiver Education Described results of evaluation,Patient expressed understanding of evaluation, Patient expressed understanding of safety precautions,Patient expressed understanding of feeding recommendations Goals Long-term Goals Pt will safely tolerate least restrictive diet without s/sx aspiration to meet hydration and nutritional needs.
--- NOTE | 2022-05-05 14:19 | P.PN_ITS ---
Subjective Subjective Date Patient Seen: 05/05/22 Interval history: Patient denies complaints at this time, but remains weak and confusion is slowly improving. enies chest pain, abdominal pain, nausea, vomiting, edema. Feels somewhat short of breath. He feels depressed with inability to swallow earlier and is very hungry. Exam Vital Signs (past 8 hours): - 05/05/22 08:28 05/05/22 07:00 05/05/22 07:00 Temperature Pulse Rate 126 H 126 H Respiratory Rate 28 H 37 H Blood Pressure 128/80 Pulse Oximetry 96 94 Oxygen Delivery Method Oxygen Flow Rate 05/05/22 08:00 05/05/22 08:00 05/05/22 09:00 Temperature Pulse Rate 133 H Respiratory Rate 31 H Blood Pressure 125/86 123/84 Pulse Oximetry 94 Oxygen Delivery Method Oxygen Flow Rate 05/05/22 09:00 05/05/22 10:00 05/05/22 10:00 Temperature Pulse Rate 127 H 134 H Respiratory Rate 35 H 39 H Blood Pressure 128/87 Pulse Oximetry 96 95 Oxygen Delivery Method Oxygen Flow Rate 05/05/22 10:30 05/05/22 11:00 05/05/22 10:00 Temperature 98.3 F Pulse Rate 136 H 136 H Respiratory Rate 38 H Blood Pressure Pulse Oximetry 95 94 Oxygen Delivery Method Oxygen Flow Rate 05/05/22 12:00 05/05/22 11:00 05/05/22 12:00 Temperature Pulse Rate Respiratory Rate Blood Pressure 117/78 121/73 117/78 Pulse Oximetry Oxygen Delivery Method Oxygen Flow Rate 05/05/22 12:00 05/05/22 12:07 05/05/22 12:44 Temperature Pulse Rate 134 H 113 H Respiratory Rate 34 H 28 H Blood Pressure Pulse Oximetry 92 96 94 Oxygen Delivery Method High Flow Nasal Cannula Oxygen Flow Rate 45 05/05/22 08:00 05/05/22 12:30 05/05/22 13:00 Temperature Pulse Rate 124 H Respiratory Rate 29 H Blood Pressure 92/68 Pulse Oximetry 94 Oxygen Delivery Method High Flow Nasal Cannula Oxygen Flow Rate 05/05/22 13:00 Temperature Pulse Rate 115 H Respiratory Rate 33 H Blood Pressure Pulse Oximetry 93 Oxygen Delivery Method Oxygen Flow Rate Fraction of Inspired Oxygen 0.77 Oxygen Delivery Method High Flow Nasal Cannula Oxygen Flow Rate 45 Narrative Exam Narrative: GEN: lethargic and ill appearing male, no acute distress. HEENT: moist mucous membranes, PERRL NECK: trachea midline, no JVD PULM: coarse breath sounds, rhonchi bilaterally without wheezing. CV: tachycardic and regular rhythm, no murmurs ABD: soft, nontender, nondistended, no organomegaly EXT: warm and well perfused with no edema NEURO: awake, alert, oriented, no focal deficits noted Objective Labs Result Diagrams: 05/04/22 03:57 05/05/22 10:25 Labs: Laboratory Results - last 24 hr 05/04/22 05/04/22 05/04/22 12:50 15:41 15:41 Sodium 136 L 132 L Potassium 4.5 4.6 Chloride 104 106 Carbon Dioxide 17 L 18 L BUN 23 H 25 H Creatinine 1.37 H 1.36 H Estimated GFR 56 L 56 L BUN/Creatinine Ratio 16.8 18.4 Glucose 155 H D 172 H Calcium 8.3 L 8.2 L Phosphorus 1.3 L Magnesium 05/04/22 05/04/22 05/05/22 15:41 18:40 00:24 Sodium 134 L 135 L Potassium 4.0 3.8 Chloride 104 108 H Carbon Dioxide 18 L 14 L BUN 26 H 27 H Creatinine 1.33 H 1.56 H Estimated GFR 58 L 48 L BUN/Creatinine Ratio 19.5 17.3 Glucose 177 H 146 H Calcium 8.1 L 7.8 L Phosphorus Magnesium 2.2 05/05/22 05/05/22 05:11 10:25 Sodium 134 L 134 L Potassium 4.0 4.5 Chloride 107 106 Carbon Dioxide 15 L 17 L BUN 30 H 31 H Creatinine 1.53 H 1.53 H Estimated GFR 49 L 49 L BUN/Creatinine Ratio 19.6 20.3 Glucose 175 H 149 H Calcium 7.9 L 7.9 L Phosphorus 2.6 D Magnesium PFSH Social History household members: none Smoking Status: Never smoker Assessment & Plan Assessment & Plan narrative: 1. Sepsis with Acute hypoxemic respiratory failure, acute toxic/metabolic encephalopathy, secondary to COVID pneumonia with possible superimposed bacterial pneumonia. -patient may be undervaccinated against covid -has risk factors for severe disease with diabetes and cad -COVID positive on admission -quickly escalating O2 requirements, remains today on heated high flow oxygen -CTA negative for PE -started on dexamethasone, baricitinib, remdesivir, will continue. -cover for possible bacterial pneumonia broadly for now with vanc, meropenem. Discontinued azitho. -MRSA swab negative, sputum culture, blood cultures without growth. Will stop vanco today. Consider narrowing from meropenem. -encephalopathy likely worsened with DKA and acidosis, now improving with insulin infusion. -continue SUPERVISOR COLD ROLLING evaluation, consider feeding tube if prolonged inability to swallow. If he can't swallow, further evavluate with MRI to rule out CVA. 2. Tachycardia -sinus tachycardia on EKG -suspect secondary to severity of illness and likely dka. -can resume home metoprolol today. -tachycardia did not improve with 500cc fluid -CTA negative for PE 3. Type 2 Diabetes with DKA -hold oral medications -started on insulin infusion after worsening acidosis with bicarb of 7, glucose was in the 200s but he is on an SGLT-2 at home. Venous access was difficult, now with PICC line in place. -improving acidosis today with insulin infusion, can hopefully transition off soon. Consider bicarb infusion per claims correspondence clerk. -continue insulin infusion for now. okay for diet when cleared by speech. 4. Hypothyroidism -continue synthroid 5. CAD s/p CABG -continue statin CODE: Full Proxy: Sister Chiara Huizar [phone], other contact friend Buster Parson [phone] I have utilized all available resources to reconcile the patient's home medications I spent 35 minutes providing critical care management this patient. This excludes time spent in performing separately billed procedures. Time Spent With Patient Critical Care time: I spent a total of [] minutes of critical care time on this patient's care today; this time is exclusive of procedural time. Quality VTE Deep Vein Thrombosis/Pulmonary Embolism Present on Admission: No
[2022-05-05 15:08] LABS: Blood Urea Nitrogen 31 mg/dL (9-20); Calcium 7.8 mg/dL (8.4-10.2); Carbon Dioxide 15 mmol/L (22-32); Chloride 107 mmol/L (98-107); Estimated Glomerular Filt Rate 48 mL/min (>60); Glucose 133 mg/dL (80-110); HEMOLYSIS 46 (0-50); Potassium 4.2 mmol/L (3.4-5.1); Sodium 136 mmol/L (137-145)
--- NOTE | 2022-05-05 16:55 | ST.IPCSEOM ---
Visit Care Team Role Provider Type Doctor Janay MD Primary Care Provider Non-Staff Specialty: Medical Address: Phone: Fax: Email: Samira Warren MD Other Providers Physician Specialty: Medical Address: Phone: Fax: Email: Vivian Singh MD Other Providers Physician Specialty: Medical Address: Phone: Fax: Email: Trevon Marquez MD Other Providers Physician Specialty: Medical Address: [facility] [place], [address] Phone: Fax: Email: Matt Singh MD Other Providers Physician Specialty: Internal Medicine Address: Phone: Fax: Email: Augustine Roberto MD Other Providers Physician Specialty: Medical Address: Phone: Fax: Email: Umu Armas MD Other Providers Physician Specialty: Internal Medicine Address: [address] [place] [address], [address] Phone: Fax: Email: @[employer] Eduard Moore MD Other Providers Physician Specialty: Internal Medicine Address: Phone: Fax: Email: Félix Guthrie MD Other Providers Physician Specialty: Medical Address: Phone: Fax: Email: Joby Comer MD Other Providers Physician Specialty: Internal Medicine Address: Phone: Fax: Email: Heriberto Pillai MD Other Providers Physician Specialty: Medical Address: [address] [place] [address], [address] Phone: Fax: Email: Liliana Talamantes MD Other Providers Physician Specialty: Medical Address: Phone: Fax: Email: Annie Jaime Other Providers Physician Specialty: Medical Address: Phone: Fax: Email: Dat Donovan DO Emergency Provider Physician Referring Provider Specialty: Emergency Medicine Address: [address] [place] [address], [address] Email: [email or web address] Maya Mendoza MD Admit Provider Physician Attending Provider Specialty: Family Practice Address: [address] [place] [address], [id number] Phone: Fax: Email: [email or web address] Current Diagnoses Hypothyroidism, unspecified (05/03/22) Type 2 diabetes mellitus without complications (05/03/22) Atherosclerotic heart disease of [place] coronary artery without angina pectoris (05/03/22) Acute respiratory failure with hypoxia (05/03/22) COVID-19 (05/03/22) 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 Riojas is a 71M with PMH spina bifida, DM, CAD s/p CABG, hypothyroidism who presents to the hospital for a weakness and a fall. He started feeling ill within the last day. He noted primarily sore throat. Initially was denying chest pain. He came to the hospital via EMS primarily for the weakness. He was COVID positive. In the ED he developed worsening shortness of breath, cough, and hypoxemia. He was started on oxygen. He was afebrile, he was tachycardic and tachypneic. Labs notable for WBC 9.7, hgb 14.2, plts 178. Creatinine 0.99. Troponin 0.022. EKG showed sinus tachycardia. COVID positive. Chest xray showed no acute process. CTA was negative for PE but showed multifocal bilateral ground glass opacities and fluid filled lower lobe bronchi consistent with mucous plugging. He was ordered for antibiotics, steroids, and remdesivir and admitted for further treatment . Upon arrival to the floor he was in quite significant respiratory distress. His oxygen saturations remained in the 80s on nasal cannula, and therefore he was started on heated high flow and transferred to the ICU. Subjective Observations Pt was in bed asleep. he was agreeable to reassessment. Pt repositioned in the bed in an upright position. Reported by Patient Pain Intensity 1 Pain Scale Used Numeric (0 - 10) Other Symptoms Coughing,Difficulty swallowing liquids,Difficulty swallowing pills,Difficulty swallowing solids Comment Pt produced a wet cough. Suction on at bedside. Current Diet Nothing by mouth Objective Assessment Mental Status Alert,Responsive,Cooperative Oral Integrity WFL Dentition Within normal limits Lip Function Mild impairment Observation of Lips at Rest Symmetrical Observations of Tongue at Rest Involuntary movement(s) Tongue Protrusion Reduced range of motion, Reduced strength Tongue Retraction Reduced strength Tongue Lateralization Reduced range of motion, Incoordination Gag Reflex Within normal limits Comment OME observed informally. No overt deficits noted. Speech was clear and articulate Food and Liquid Trials Position During Assessment Slightly reclined Liquids Trialed Ice chips,Thin,[place] Solids Trialed Puree Administration Type Tea spoon,Controlled cup sip Oral Impairment Moderately impaired Oral Phase Comments Prolonged mastication of regular texture. While chewing , pt's respiratory rate increased and was labored. Pt is not safe for regular textures at this time. Pharyngeal Impairment Moderately impaired Pharyngeal Phase Comments Pt tolerated ice chips without cough. Pt did not tolerate water via teaspoon, requiring suction. NTL in teaspoons was not tolerated, requiring suction. Applesauce was tolerated (silent aspiration cannot be ruled out without instrumental examination). Fatigue/Endurance Moderate fatigue Strategies Attempted Chin tuck Findings Swallowing Function Pharyngeal phase dysphagia Severity of Swallow Impairment Moderately impaired Contributing Factors to Swallow Reduced oral strength/ Impairment coordination/sensation, Impaired velopharyngeal closure/coordination,Delayed swallow initiation,Excessive pharyngeal residue Prognosis Good Based on Age,Comorbidities,Duration of symptoms/severity Comment Recommend SMALL portions odf pureed foods with ice chips ONLY at this time. No thin liquids. If swallow does not improve with pt overall improvement, may consider MBSS. Impact on Safety and Functioning Risk for aspiration,Risk for inadequate nutrition/hydration Recommendations Swallowing Treatment Yes Frequency 1-2x/day while imnpatient status Recommended Solids Puree Recommended Liquids Ice Chips Only Other Recommendations Small portions of puree and ice chips. 1:1 monitoring/ assist as indicated Safety Precautions/Swallowing 1 to 1 close supervision,Feed Recommendations only when alert,Reduce distractions,Remain upright ( 90 degrees) during all oral intake,Needs verbal cues to use recommended strategies, Upright position at least 30 minutes after meals,Slow rate; swallow between bites,Set-up assistance,1 to 1 feeding assistance Medication Recommendations As Tolerated,Whole in Carrier, Crushed in Carrier Discharge Recommendations retirement facility,Home with Home Health Education Patient/Caregiver Education Described results of evaluation,Patient expressed understanding of evaluation, Patient expressed understanding of safety precautions,Patient expressed understanding of feeding recommendations,Patient requires further education/ training,Family/caregivers require further education/ training Goals Long-term Goals Pt will safely tolerate least restrictive diet without s/sx aspiration to meet hydration and nutritional needs.
[2022-05-05] MEDS: INSULIN DRIP PREMIX 100 UNIT/100 ML PLAST..BAG 6.68 UNIT IV (17:59)
--- NOTE | 2022-05-05 20:31 | PM.ICURNDS ---
- Date Patient Seen: 05/05/22 Time Patient Seen: 20:31 :: This patient was seen via real time interactive two-way audiovisual telecommunication. Note: Most recent BMP at 2:30 pm -> Co2 15 and AG 14. Will continue insulin gtt per DKA protocol. Reorder BMP every 4 hours. Will transition to lantus once AG <12 and Co2 >17. Currently on HFNC 50/50%. D/w RN at bedside.
[2022-05-05] MEDS: REMDESIVIR 100 MG in SODIUM CHLORIDE 0.9% 230 ML 250 MG IV (20:41)
[2022-05-05 21:43] LABS: Blood Urea Nitrogen 34 mg/dL (9-20); Calcium 7.7 mg/dL (8.4-10.2); Carbon Dioxide 17 mmol/L (22-32); Chloride 110 mmol/L (98-107); Estimated Glomerular Filt Rate 46 mL/min (>60); Glucose 145 mg/dL (80-110); Sodium 136 mmol/L (137-145)
[2022-05-05 21:47] LABS: HEMOLYSIS 106 (0-50)
[2022-05-05 21:48] LABS: Potassium 4.3 mmol/L (3.4-5.1)
[2022-05-05] MEDS: DEXTROSE 50 % IN WATER 25 GM/50 ML SYRINGE IV (23:05)
[2022-05-06] VITALS (41 sets, daily range): BP systolic 78–155; BP diastolic 47–86; PULSE 85–146; RESP 12–58; TEMP 36.3–37.3; O2SAT 63–100
[2022-05-06 01:23] LABS: BUN Creatinine Ratio 21.3 (6-22); Blood Urea Nitrogen 34 mg/dL (9-20); Calcium 7.6 mg/dL (8.4-10.2); Carbon Dioxide 17 mmol/L (22-32); Chloride 109 mmol/L (98-107); Estimated Glomerular Filt Rate 46 mL/min (>60); Glucose 150 mg/dL (80-110); HEMOLYSIS 42 (0-50); Potassium 3.6 mmol/L (3.4-5.1); Sodium 137 mmol/L (137-145)
--- NOTE | 2022-05-06 02:06 | DI.RAD.S_ITS ---
PROCEDURE: XR CHEST 1V INDICATIONS: SOB TECHNIQUE: One view of the chest was acquired. COMPARISON: , CT, CT ANGIO CHEST PE PROTOCOL, 05/03/2022, 15:19. , CR, XR CHEST FOR PICC 1V, 05/04/2022, 12:01. , CR, XR CHEST 1V, 05/03/2022, 22:52. FINDINGS: Surgical changes and devices: Right-sided PICC with the catheter tip at the cavoatrial junction. Post median sternotomy. Lungs and pleura: Bilateral patchy airspace opacity are increased. Streaky opacity at the right lung base. No pneumothorax. No pleural effusion identified. Mediastinum: Mediastinal contours appear normal. Heart size is normal. Bones and chest wall: No suspicious bony lesions. Overlying soft tissues appear unremarkable. IMPRESSION: Bilateral patchy airspace opacity are increased. This is concerning for pneumonia. Right basilar atelectasis. Dictated by: Octavio Dominguez M.D. on 05/06/2022 at 7:53 Approved by: Octavio Dominguez M.D. on 05/06/2022 at 7:54
--- NOTE | 2022-05-06 03:06 | PM.EICU.INT ---
Teleintensivist Intervention Date/Time Was camera activated?: Yes Date Patient Seen: 05/06/22 Time Patient Seen: 03:06 Issue(s) Addressed Issue(s): Fluid/Nutrition and Resp. Distress/Ventilator management Intervention(s) :: patient seen chart/labs/imaging reviewed noted tachycardai/worsening hypoxia and tachypnea pt art awake follows commands, copious secretions requring quction cxr appears with b/l infiltrates worse than prior film, official read pending, abg pending, ekg pending last ag closed bicarb 17, glucose 100s suggested to dc insulin drip, dc ivf may need some lasix, will re-eval low threshhold for intubation Plan discussed with: Nurse
--- NOTE | 2022-05-06 03:09 | PC.NURSE ---
~0200 patient's HR increased to 130's-140's. Patient visibly having a hard time breathing with respirations in 50's as well as having a hard time coughing up secretions. Patient's SPO2 between 93-96% on 50L/50% heated high flow. RT called to bedside. NT and oral suctioning performed as well as CPT, patient able to get up large amount of secretions. Tele-money market dealer notified. Stat CXR ordered. Per Dr Marquez, stop all fluids based off CXR. ~0300 patient's HR still high 130's-140's. Dr Marquez made aware. ABG and EKG ordered. RN will continue to monitor.
--- NOTE | 2022-05-06 03:50 | PC.NURSE ---
Dr Marquez called with EKG and ABG results. Will wait for orders. RN will continue to monitor.
[2022-05-06] MEDS: FUROSEMIDE 40 MG/4 ML VIAL IV (04:22)
--- NOTE | 2022-05-06 04:53 | PC.NURSE ---
Addendum entered by Norberto Briceno R.N. 05/06/22 04:58: Home trazadone dose not given per Dr Moore, precedex ggt ordered instead. Original Note: 40 mg lasix given, HR continues to be high 130's-140's. RR still in 40'-50's. Patient expressing being anxious about not being home for Thanksgiving, continues to try to look at the monitor. Dr Moore updated on patient's status. OK to give home trazadone dose to help calm patient down.
[2022-05-06] MEDS: dexmedeTOMIDine in 0.9 % NaCL 400 MCG/100 ML PLAST..BAG IV (05:12)
[2022-05-06] MEDS: MEROPENEM 1 GM in SODIUM CHLORIDE 0.9% 100 ML IV (05:13)
[2022-05-06] MEDS: LEVOTHYROXINE 75 MCG TABLET PO (05:19)
--- NOTE | 2022-05-06 06:00 | PC.NURSE ---
0600 BG 213, per Dr Oscar dalal to restart insulin ggt as well as D5 1/2NS but at 50ml/hr instead of 100 ml/hr. Q1 hour BG checks instead of Q2 hour checks until BG stabilize.
[2022-05-06 06:09] LABS: Add Manual Diff / Slide Review NO; Basophils Absolute Auto 0 /uL (0-100); Basophils Percent Auto 0.2 % (0-2); Eosinophils Absolute Auto 0 /uL (0-450); Hematocrit 45.2 % (41-53); Hemoglobin 15.4 g/dL (13.5-17.5); Lymphocytes Absolute Auto 200 /uL (1100-4500); Mean Corpuscular HGB Conc 34.1 % (30-36); Mean Corpuscular Hemoglobin 29.6 PG (26-34); Mean Corpuscular Volume 86.7 fL (80-100); Monocytes Absolute Auto 500 /uL (0-900); Monocytes Percent Auto 6.4 % (3-14); Neutrophils Absolute Auto 6800 /uL (1500-7000); Neutrophils Percent Auto 90.4 % (50-75); Platelet Count 180 X10^3/uL (150-400); Red Blood Cell Count 5.21 X10^6/uL (4.5-5.9); Red Cell Distribution Width 13.4 % (11.6-14.8); White Blood Cell Count 7.5 X10^3/uL (4.5-11.0)
[2022-05-06 06:12] LABS: BUN Creatinine Ratio 19.1 (6-22); Blood Urea Nitrogen 35 mg/dL (9-20); Calcium 7.7 mg/dL (8.4-10.2); Carbon Dioxide 12 mmol/L (22-32); Chloride 109 mmol/L (98-107); Estimated Glomerular Filt Rate 39 mL/min (>60); Glucose 194 mg/dL (80-110); HEMOLYSIS 90 (0-50); Sodium 137 mmol/L (137-145)
[2022-05-06 06:13] LABS: HCO3 ABG 13 mmol/L (22-26); Oxygen Saturation ABG 97 % (95-100); PCO2 ABG 19.9 mmHg (35-45); PO2 ABG 46 mmHg (80-100); TCO2 ABG 14 mmol/L (21-31); pH ABG 7.43 (7.35-7.45)
[2022-05-06 06:14] LABS: Potassium 4.6 mmol/L (3.4-5.1)
[2022-05-06 06:16] LABS: Fractionated Inspired Oxygen 50
[2022-05-06] MEDS: DEXTROSE 5%-0.45% NS 1,000 ML 50 ML IV (06:24)
[2022-05-06] MEDS: METOPROLOL IR 25 MG TABLET 12.5 MG PO (08:59)
[2022-05-06] MEDS: PANTOPRAZOLE 40 MG VIAL IV (09:00)
[2022-05-06] MEDS: BARICITINIB 2 MG TABLET PO (09:00)
[2022-05-06] MEDS: DEXAMETHASONE 10 MG/ML VIAL 6 MG IV (09:00)
[2022-05-06] MEDS: ENOXAPARIN 40 MG/0.4 ML SYRINGE SUBCUT (09:00)
[2022-05-06] MEDS: SODIUM CHLORIDE 0.9% FLUSH 10 ML IV ×2 (09:00→21:05)
--- NOTE | 2022-05-06 09:13 | P.PN_ITS ---
Subjective Subjective Date Patient Seen: 05/06/22 Interval history: Patient says he is feeling better. Able to speak with his girlfriend which has been a relief to him. Says his breathing is better too. Exam Vital Signs (past 8 hours): - 05/06/22 02:00 05/06/22 02:00 05/06/22 03:00 Temperature Pulse Rate 146 H Respiratory Rate 46 H Blood Pressure 155/86 H 118/63 Pulse Oximetry 63 L Oxygen Delivery Method Oxygen Flow Rate 05/06/22 03:00 05/06/22 03:38 05/06/22 04:00 Temperature Pulse Rate 141 H 138 H Respiratory Rate 46 H 36 H Blood Pressure 124/78 Pulse Oximetry 97 Oxygen Delivery Method Oxygen Flow Rate 05/06/22 04:00 05/06/22 05:00 05/06/22 05:00 Temperature 99.1 F Pulse Rate 145 H 138 H Respiratory Rate 53 H 58 H Blood Pressure 113/77 Pulse Oximetry 95 93 Oxygen Delivery Method Oxygen Flow Rate 45 45 05/06/22 04:00 05/06/22 06:00 05/06/22 06:00 Temperature Pulse Rate 133 H Respiratory Rate 36 H Blood Pressure 111/69 Pulse Oximetry 91 Oxygen Delivery Method Heated High Flow Oxygen Flow Rate 45 05/06/22 07:00 05/06/22 07:05 05/06/22 07:05 Temperature Pulse Rate 118 H 123 H Respiratory Rate 35 H 43 H Blood Pressure 85/49 L Pulse Oximetry 92 93 Oxygen Delivery Method Oxygen Flow Rate 05/06/22 07:15 05/06/22 07:15 05/06/22 07:00 Temperature Pulse Rate 121 H Respiratory Rate 46 H Blood Pressure 81/48 L 81/48 L Pulse Oximetry 93 Oxygen Delivery Method Oxygen Flow Rate 05/06/22 08:00 05/06/22 07:00 Temperature Pulse Rate Respiratory Rate Blood Pressure Pulse Oximetry 96 Oxygen Delivery Method Heated High Flow Heated High Flow Oxygen Flow Rate 45 Fraction of Inspired Oxygen 0.77 Oxygen Delivery Method Heated High Flow Oxygen Flow Rate 45 Narrative Exam Narrative: GEN: alert, diaphoretic and ill appearing male, no acute distress. HEENT: moist mucous membranes, PERRL NECK: trachea midline, no JVD PULM: coarse breath sounds, rhonchi bilaterally without wheezing. CV: tachycardic and regular rhythm, no murmurs ABD: soft, nontender, nondistended, no organomegaly EXT: warm and well perfused with no edema NEURO: awake, alert, oriented, no focal deficits noted Objective Labs Result Diagrams: 05/06/22 05:40 05/06/22 13:00 Labs: Laboratory Results - last 24 hr 05/05/22 05/05/22 05/05/22 10:25 14:30 20:45 WBC RBC Hgb Hct MCV MCH MCHC RDW Plt Count Neut % (Auto) Lymph % (Auto) Oliver % (Auto) Eos % (Auto) Baso % (Auto) Neut # (Auto) Lymph # (Auto) Oliver # (Auto) Eos # (Auto) Baso # (Auto) ABG pH ABG pCO2 ABG pO2 ABG HCO3 ABG Total CO2 ABG O2 Saturation ABG Base Excess FiO2 Sodium 134 L 136 L 136 L Potassium 4.5 4.2 4.3 Chloride 106 107 110 H Carbon Dioxide 17 L 15 L 17 L BUN 31 H 31 H 34 H Creatinine 1.53 H 1.55 H 1.62 H Estimated GFR 49 L 48 L 46 L BUN/Creatinine Ratio 20.3 20.0 21.0 Glucose 149 H 133 H 145 H Calcium 7.9 L 7.8 L 7.7 L 05/06/22 05/06/22 05/06/22 01:00 03:26 05:40 WBC RBC Hgb Hct MCV MCH MCHC RDW Plt Count Neut % (Auto) Lymph % (Auto) Oliver % (Auto) Eos % (Auto) Baso % (Auto) Neut # (Auto) Lymph # (Auto) Oliver # (Auto) Eos # (Auto) Baso # (Auto) ABG pH 7.43 ABG pCO2 19.9 L* ABG pO2 46 L* ABG HCO3 13 L ABG Total CO2 14 L ABG O2 Saturation 97 ABG Base Excess -11.0 L FiO2 50 Sodium 137 137 Potassium 3.6 4.6 Chloride 109 H 109 H Carbon Dioxide 17 L 12 L BUN 34 H 35 H Creatinine 1.60 H 1.83 H Estimated GFR 46 L 39 L BUN/Creatinine Ratio 21.3 19.1 Glucose 150 H 194 H Calcium 7.6 L 7.7 L 05/06/22 05:40 WBC 7.5 RBC 5.21 Hgb 15.4 Hct 45.2 MCV 86.7 MCH 29.6 MCHC 34.1 RDW 13.4 Plt Count 180 Neut % (Auto) 90.4 H Lymph % (Auto) 3.0 L Oliver % (Auto) 6.4 Eos % (Auto) 0.0 L Baso % (Auto) 0.2 Neut # (Auto) 6800 Lymph # (Auto) 200 L Oliver # (Auto) 500 Eos # (Auto) 0 Baso # (Auto) 0 ABG pH ABG pCO2 ABG pO2 ABG HCO3 ABG Total CO2 ABG O2 Saturation ABG Base Excess FiO2 Sodium Potassium Chloride Carbon Dioxide BUN Creatinine Estimated GFR BUN/Creatinine Ratio Glucose Calcium [facility] Social History household members: none Smoking Status: Never smoker Assessment & Plan Assessment & Plan narrative: 1. Sepsis with Acute hypoxemic respiratory failure, acute toxic/metabolic encephalopathy, secondary to COVID pneumonia with possible superimposed bacterial pneumonia. Sepsis now resolved. -patient may be undervaccinated against covid, reports not getting a booster in a while -has risk factors for severe disease with diabetes and CAD -COVID positive on admission -quickly escalating O2 requirements, remains today on heated high flow oxygen -CTA negative for PE -started on dexamethasone, baricitinib, remdesivir, will continue. -narrow meropenem to rocephin 1g daily -encephalopathy likely worsened with DKA and acidosis, now improving with insulin infusion. 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 If he can't swallow, further evaluation may be warranted with MRI to rule out CVA. 2. Persistent sinus tachycardia -sinus tachycardia on EKG -suspect secondary to severity of illness and possibly dka. -can resume home metoprolol today -tachycardia did not improve with 500cc fluid, continue 125/hr fluids -CTA negative for PE -consider repeat boluses as patient may be dry 3. Type 2 Diabetes with DKA vs starvation ketosis -hold oral medications, patient has been NPO for several days due to dysphagia -started on insulin infusion after worsening acidosis with bicarb of 7, glucose was in the 200s but he is on an SGLT-2 at home. Venous access was difficult, now with PICC line in place. -no diet for a few days secondary to dysphagia, given positive ketones despite insulin drip for over 24 hours suspect component of starvation ketosis -start dextrose-saline IVF at 125cc/hr given no adequate nutrition and appears dry on exam 4. Hypothyroidism -continue synthroid 5. CAD s/p CABG -continue statin 6. ELINA -suspect secondary to hypovolemia -Cr now almost double his admission level with diuresis -fluids as above -monitor CODE: Full Proxy: Sister Chiara Huizar [phone], other contact friend Buster Eb [phone] I have utilized all available resources to reconcile the patient's home medications I spent 35 minutes providing critical care management this patient. This excludes time spent in performing separately billed procedures. Time Spent With Patient Critical Care time: I spent a total of [] minutes of critical care time on this patient's care today; this time is exclusive of procedural time. Quality VTE Deep Vein Thrombosis/Pulmonary Embolism Present on Admission: No
[2022-05-06 09:46] LABS: Appearance Urine UA CLEAR; Bilirubin Urine UA NEGATIVE (NEGATIVE); Color Urine UA YELLOW; Glucose Urine UA NEGATIVE (Negative); Ketones Urine UA TRACE (NEGATIVE); Leukocyte Esterase Urine UA NEGATIVE (NEGATIVE); Nitrite Urine UA NEGATIVE (Negative); Occult Blood Urine UA 1+ (Negative); Protein Urine UA NEGATIVE (Negative); Urobilinogen Urine UA 0.2 E.U./dL (0.2)
[2022-05-06 10:05] LABS: BUN Creatinine Ratio 19.9 (6-22); Blood Urea Nitrogen 36 mg/dL (9-20); Calcium 7.1 mg/dL (8.4-10.2); Carbon Dioxide 16 mmol/L (22-32); Chloride 108 mmol/L (98-107); Estimated Glomerular Filt Rate 40 mL/min (>60); Glucose 337 mg/dL (80-110); Sodium 136 mmol/L (137-145)
[2022-05-06] MEDS: FUROSEMIDE 20 MG/2 ML VIAL IV (10:08)
[2022-05-06 10:13] LABS: HEMOLYSIS 61 (0-50)
[2022-05-06 10:14] LABS: Potassium 3.5 mmol/L (3.4-5.1)
--- NOTE | 2022-05-06 10:22 | SLP.IPNOTE ---
Chart review indicated that pt had a hard night with nursing reporting: ~0200 patient's HR increased to 130's-140's. Patient visibly having a hard time breathing with respirations in 50's as well as having a hard time coughing up secretions. Patient's SPO2 between 93-96% on 50L/50% heated high flow. RT called to bedside. NT and oral suctioning performed as well as CPT, patient able to get up large amount of secretions. Tele-clerk of works notified. Stat CXR ordered. Per Dr Marquez, stop all fluids based off CXR. Recommend resuming NPO with ICE CHIPS only today until further diaresed with lasix. NO solid foods. ICE CHIPS ok. Will f/u later today if possible.
--- NOTE | 2022-05-06 10:45 | CM.DPC ---
Addendum entered by Mone Stephen R.N. 05/06/22 13:28: Confirmed, patient is not on ventilator, he is on high flow oxygen. Addendum entered by Mone Stephen R.N. 05/06/22 12:54: It is noted that patient is on ventilator, not ready for any type of therapy at this point. Addendum entered by Mone Stephen R.N. 05/06/22 11:17: Confirmed with hospitalist, Dr. Michael, that patient is not yet medically ready for P.T. Spoke to Kalina at [facility], she indicated that she did not get referral. Went ahead and asked [place] to send referral to Kalina as well. Asked her if she accepts COVID patients, and she indicated that it is on a case by case basis. Did let her know that his discharge plan should not be a problem, since he does live at [facility], and will check in with nurse on Wednesday to see if she can do a bedside assessment, but most likely will need skilled before returning to their facility, as he may also need IV ABO. Original Note: DCP Cont: Called [facility], inquiring on what would need to be done to have a bedside assessment. Anusha is the nursing care partner, is not back until Wednesday. Can reach out then, she would be the one doing the assessment. At this time, patient does not have P.T. orders, and is [employer], and would likely have to have P.T. to qualify for skilled if needed. It is noted that some facilities were faxed already. Did ask [place] to fax Leanna and [facility] as well. Left a message with Kalina at [facility] to follow up, as referral was faxed to her, and also, spoke to Shahnaz at [place], she has beds, faxed referral. She did say that their DNS would have to review, secondary to being COVID positive, and may not be able to accept until next week. P: DCP to continue to follow. Patient does not have P.T. orders as of yet. Will see if he is yet appropriate. Have faxed other facilities as well. Other option is back to [facility] with assistance, but would need bedside assessment, and at this time, patient has PICC line with abo. Mone Stephen RN/Advertising Sales Executive
[2022-05-06] MEDS: POTASSIUM CHLORIDE IN WATER 10 MEQ/100 ML PIGGYBACK 100 MEQ IV ×2 (12:01→13:33)
--- NOTE | 2022-05-06 12:47 | PM.PN.EICU ---
Subjective Subjective IF CAMERA ACTIVATED, patient seen via real-time interactive audiovisual communication: Camera activated Consent obtained for tele-manager distribution center care: Yes Patient Location: ICU Provider location (State): [place] Other participants/roles: RN Interval history: 71M with PMHx of spina bifida, DM, CAD s/p CABG, hypothyroidism admitted 05/03 with COVID-19 induced acute hypoxic respiratory failure. Started on dexamethasone, remdesivir and barictinib. Initially admitted to floor but required HFNC and transferred to the ICU. OVERNIGHT EVENTS 1) ELINA worsening 2) Episode of desaturation ~ 0400 --> IVF and insulin infusion transiently held. Precedex transiently given for anxiolysis-->had to be stopped due to hypotension Current Medications Current Medications Medications: Home Medications metformin 1,000 mg tablet 1,000 mg PO BID 07/22/21 [History Confirmed 07/22/21] citalopram 10 mg tablet 5 mg PO DAILY 07/23/21 [History Confirmed 07/23/21] dapagliflozin 10 mg tablet (Farxiga) 10 mg PO DAILY 07/23/21 [History Confirmed 07/23/21] glimepiride 1 mg tablet 1 mg PO DAILY 07/23/21 [History Confirmed 07/23/21] levothyroxine 75 mcg tablet 75 mcg PO DAILY 07/23/21 [History Confirmed 05/03/22] metoprolol tartrate 25 mg tablet 12.5 mg PO BID 07/23/21 [History Confirmed 05/03/22] simvastatin 10 mg tablet 10 mg PO BEDTIME 07/23/21 [History Confirmed 05/03/22] empagliflozin 25 mg tablet (Jardiance) 25 mg PO DAILY 05/03/22 [History Confirmed 05/03/22] sertraline 50 mg tablet 50 mg PO DAILY 05/03/22 [History Confirmed 05/03/22] trazodone 50 mg tablet 50 mg PO DAILY 05/03/22 [History Confirmed 05/03/22] Visit Medications (administered) Generic Name Dose Route Start Last Admin Trade Name Freq PRN Reason Stop Dose Admin Dexamethasone 6 mg 05/04/22 09:00 05/06/22 09:00 Dexamethasone 10 Mg/Ml Vial IV 6 mg DAILY KALEB Administration Dextrose 25 gm 05/03/22 19:16 05/05/22 23:05 Dextrose 50 % In Water 25 Gm/50 Ml Syringe IV 12.5 gm PRN PRN Administration Hypoglycemia Enoxaparin Sodium 40 mg 05/04/22 09:00 05/06/22 09:00 Enoxaparin 40 Mg/0.4 Ml Syringe SUBCUT 40 mg DAILY KALEB Administration Remdesivir 100 mg/ Sodium 250 mls @ 250 mls/hr 05/04/22 21:00 05/05/22 21:43 Chloride IV 05/07/22 21:59 Infused DAILY@2100 KALEB Infusion INSULIN DRIP PREMIX 100 unit in 100 mls @ 6 mls/hr 05/04/22 06:30 05/06/22 10:21 Myxredlin Drip Premix IV 0 units/kg/hr TITRATE KALEB 0 mls/hr Titration Protocol Dextrose/Sodium Chloride 1,000 mls @ 100 mls/hr 05/04/22 09:00 05/06/22 06:24 Dextrose 5%-0.45% Ns IV 50 mls/hr CONT KALEB Administration Dextrose 1,000 mls @ 66.8 mls/hr 05/04/22 12:30 05/06/22 01:00 D10w IV 0 mls/hr CONT KALEB Infusion Meropenem 1 gm/ Sodium 100 mls @ 200 mls/hr 05/04/22 18:00 05/06/22 05:45 Chloride IV Infused Q12H KALEB Infusion dexmedeTOMIDine in 0.9 % NaCL 400 mcg in 100 mls @ 3.39 mls/hr 05/06/22 05:00 05/06/22 07:00 Precedex IV 0 mcg/kg/hr TITRATE KALEB 0 mls/hr Titration Protocol 0.2 MCG/KG/HR POTASSIUM CHLORIDE IN WATER 10 meq in 100 mls @ 100 mls/hr 05/06/22 11:45 05/06/22 12:01 Potassium Cl 10 Meq/100 Ml Erika IV 05/06/22 13:44 100 mls/hr Q1H KALEB Administration Insulin Human Lispro 0 unit 05/03/22 21:00 05/06/22 12:19 Insulin Lispro 100 Unit/Ml 3ml Vial SUBCUT Not Given ACHS KALEB Protocol Levothyroxine Sodium 75 mcg 05/04/22 06:00 05/06/22 05:19 Levothyroxine 75 Mcg Tablet PO 75 mcg 0600 KALEB Administration Metoprolol Tartrate 12.5 mg 05/04/22 21:00 05/06/22 08:59 Metoprolol Ir 25 Mg Tablet PO 12.5 mg BID KALEB Administration Pantoprazole Sodium 40 mg 05/04/22 09:00 05/06/22 09:00 Pantoprazole 40 Mg Vial IV 40 mg DAILY KALEB Administration Sodium Chloride 10 ml 05/04/22 21:00 05/06/22 09:00 Sodium Chloride 0.9% Flush IV 10 ml BID KALEB Administration Objective Labs Result Diagrams: 05/06/22 05:40 05/06/22 09:10 Labs: Laboratory Results - last 24 hr 05/05/22 05/05/22 05/06/22 14:30 20:45 01:00 WBC RBC Hgb Hct MCV MCH MCHC RDW Plt Count Neut % (Auto) Lymph % (Auto) [place] % (Auto) Eos % (Auto) Baso % (Auto) Neut # (Auto) Lymph # (Auto) [place] # (Auto) Eos # (Auto) Baso # (Auto) ABG pH ABG pCO2 ABG pO2 ABG HCO3 ABG Total CO2 ABG O2 Saturation ABG Base Excess FiO2 Sodium 136 L 136 L 137 Potassium 4.2 4.3 3.6 Chloride 107 110 H 109 H Carbon Dioxide 15 L 17 L 17 L BUN 31 H 34 H 34 H Creatinine 1.55 H 1.62 H 1.60 H Estimated GFR 48 L 46 L 46 L BUN/Creatinine Ratio 20.0 21.0 21.3 Glucose 133 H 145 H 150 H Calcium 7.8 L 7.7 L 7.6 L Urine Color Urine Appearance Urine pH Ur Specific [place] Urine Protein Urine Glucose (UA) Urine Ketones Urine Occult Blood Urine Nitrate Urine Bilirubin Urine Urobilinogen Ur Leukocyte Esterase Urine RBC Urine WBC Ur Squamous Epith Cells Ur Transition Epith Cell Ur Renal Epithelial Cell Calcium Oxalate Crystal Uric Acid Crystals Triple Phos Crystals Other Crystals Amorphous Sediment Urine Bacteria Hyaline Casts Granular Casts RBC Casts WBC Casts Other Casts Urine Mucus Urine Trichomonas Urine Yeast Urine Sperm Ur Culture Indicated? Micro UA Comment 05/06/22 05/06/22 05/06/22 03:26 05:40 05:40 WBC 7.5 RBC 5.21 Hgb 15.4 Hct 45.2 MCV 86.7 MCH 29.6 MCHC 34.1 RDW 13.4 Plt Count 180 Neut % (Auto) 90.4 H Lymph % (Auto) 3.0 L [place] % (Auto) 6.4 Eos % (Auto) 0.0 L Baso % (Auto) 0.2 Neut # (Auto) 6800 Lymph # (Auto) 200 L [place] # (Auto) 500 Eos # (Auto) 0 Baso # (Auto) 0 ABG pH 7.43 ABG pCO2 19.9 L* ABG pO2 46 L* ABG HCO3 13 L ABG Total CO2 14 L ABG O2 Saturation 97 ABG Base Excess -11.0 L FiO2 50 Sodium 137 Potassium 4.6 Chloride 109 H Carbon Dioxide 12 L BUN 35 H Creatinine 1.83 H Estimated GFR 39 L BUN/Creatinine Ratio 19.1 Glucose 194 H Calcium 7.7 L Urine Color Urine Appearance Urine pH Ur Specific [place] Urine Protein Urine Glucose (UA) Urine Ketones Urine Occult Blood Urine Nitrate Urine Bilirubin Urine Urobilinogen Ur Leukocyte Esterase Urine RBC Urine WBC Ur Squamous Epith Cells Ur Transition Epith Cell Ur Renal Epithelial Cell Calcium Oxalate Crystal Uric Acid Crystals Triple Phos Crystals Other Crystals Amorphous Sediment Urine Bacteria Hyaline Casts Granular Casts RBC Casts WBC Casts Other Casts Urine Mucus Urine Trichomonas Urine Yeast Urine Sperm Ur Culture Indicated? Micro UA Comment 05/06/22 05/06/22 08:00 09:10 WBC RBC Hgb Hct MCV MCH MCHC RDW Plt Count Neut % (Auto) Lymph % (Auto) [place] % (Auto) Eos % (Auto) Baso % (Auto) Neut # (Auto) Lymph # (Auto) [place] # (Auto) Eos # (Auto) Baso # (Auto) ABG pH ABG pCO2 ABG pO2 ABG HCO3 ABG Total CO2 ABG O2 Saturation ABG Base Excess FiO2 Sodium 136 L Potassium 3.5 Chloride 108 H Carbon Dioxide 16 L BUN 36 H Creatinine 1.81 H Estimated GFR 40 L BUN/Creatinine Ratio 19.9 Glucose 337 H D Calcium 7.1 L Urine Color Yellow Urine Appearance Clear Urine pH 5.0 Ur Specific [place] 1.010 Urine Protein Negative Urine Glucose (UA) Negative Urine Ketones Trace H Urine Occult Blood 1+ H Urine Nitrate Negative Urine Bilirubin Negative Urine Urobilinogen 0.2 Ur Leukocyte Esterase Negative Urine RBC Cancelled Urine WBC Cancelled Ur Squamous Epith Cells Cancelled Ur Transition Epith Cell Cancelled Ur Renal Epithelial Cell Cancelled Calcium Oxalate Crystal Cancelled Uric Acid Crystals Cancelled Triple Phos Crystals Cancelled Other Crystals Cancelled Amorphous Sediment Cancelled Urine Bacteria Cancelled Hyaline Casts Cancelled Granular Casts Cancelled RBC Casts Cancelled WBC Casts Cancelled Other Casts Cancelled Urine Mucus Cancelled Urine Trichomonas Cancelled Urine Yeast Cancelled Urine Sperm Cancelled Ur Culture Indicated? Cancelled Micro UA Comment Cancelled Exam Vital Signs (past 8 hours): - 05/06/22 05:00 05/06/22 05:00 05/06/22 06:00 Temperature Pulse Rate 138 H Respiratory Rate 58 H Blood Pressure 113/77 111/69 Pulse Oximetry 93 Oxygen Delivery Method Oxygen Flow Rate 45 05/06/22 06:00 05/06/22 07:00 05/06/22 07:05 Temperature Pulse Rate 133 H 118 H 123 H Respiratory Rate 36 H 35 H 43 H Blood Pressure Pulse Oximetry 91 92 93 Oxygen Delivery Method Oxygen Flow Rate 45 05/06/22 07:05 05/06/22 07:15 05/06/22 07:15 Temperature Pulse Rate 121 H Respiratory Rate 46 H Blood Pressure 85/49 L 81/48 L Pulse Oximetry 93 Oxygen Delivery Method Oxygen Flow Rate 05/06/22 07:00 05/06/22 08:00 05/06/22 07:00 Temperature Pulse Rate Respiratory Rate Blood Pressure 81/48 L Pulse Oximetry 96 Oxygen Delivery Method Heated High Flow Heated High Flow Oxygen Flow Rate 45 05/06/22 07:30 05/06/22 07:30 05/06/22 07:45 Temperature Pulse Rate 123 H 116 H Respiratory Rate 50 H 35 H Blood Pressure 96/63 Pulse Oximetry 94 94 Oxygen Delivery Method Oxygen Flow Rate 05/06/22 07:45 05/06/22 08:00 05/06/22 08:00 Temperature Pulse Rate 119 H Respiratory Rate 43 H Blood Pressure 78/47 L 104/59 L Pulse Oximetry 95 Oxygen Delivery Method Oxygen Flow Rate 05/06/22 08:15 05/06/22 08:15 05/06/22 08:30 Temperature Pulse Rate 118 H Respiratory Rate 32 H Blood Pressure 92/51 L 91/60 Pulse Oximetry 96 Oxygen Delivery Method Oxygen Flow Rate 05/06/22 08:30 05/06/22 08:45 05/06/22 08:45 Temperature Pulse Rate 118 H 114 H Respiratory Rate 41 H 45 H Blood Pressure 87/54 L Pulse Oximetry 95 95 Oxygen Delivery Method Oxygen Flow Rate 05/06/22 09:00 05/06/22 09:00 05/06/22 09:15 Temperature Pulse Rate 116 H Respiratory Rate 40 H Blood Pressure 93/58 L 87/56 L Pulse Oximetry 96 Oxygen Delivery Method Oxygen Flow Rate 05/06/22 09:15 05/06/22 09:30 05/06/22 09:30 Temperature Pulse Rate 119 H 121 H Respiratory Rate 39 H 40 H Blood Pressure 90/54 L Pulse Oximetry 93 93 Oxygen Delivery Method Oxygen Flow Rate 05/06/22 09:45 05/06/22 09:45 05/06/22 10:00 Temperature Pulse Rate 121 H Respiratory Rate 44 H Blood Pressure 89/55 L 81/54 L Pulse Oximetry 95 Oxygen Delivery Method Oxygen Flow Rate 05/06/22 10:00 05/06/22 10:15 05/06/22 10:15 Temperature Pulse Rate 116 H 118 H Respiratory Rate 41 H 36 H Blood Pressure 106/58 L Pulse Oximetry 97 94 Oxygen Delivery Method Oxygen Flow Rate 05/06/22 11:38 05/06/22 11:00 05/06/22 11:00 Temperature 98.9 F Pulse Rate 105 H Respiratory Rate 37 H Blood Pressure 98/60 Pulse Oximetry 96 Oxygen Delivery Method Oxygen Flow Rate 05/06/22 08:38 05/06/22 12:19 Temperature Pulse Rate 101 H 104 H Respiratory Rate 24 22 Blood Pressure 89/61 L Pulse Oximetry 94 94 Oxygen Delivery Method Oxygen Flow Rate Fraction of Inspired Oxygen 0.77 Oxygen Delivery Method Heated High Flow Oxygen Flow Rate 45 Const General: ill appearing Resp Other: On HFNC 50 L/min 50% FiO2 Quality TeleICU VTE Deep Vein Thrombosis/Pulmonary Embolism Present on Admission: No Assessment & Plan Assessment and plan (1) Acute hypoxemic respiratory failure due to COVID-19: Status: Acute Plan: -Continue HFNC, baricitinib, remdesivir, dexamethasone -Agree w/ Dr. Michael that meropenem can probably be started soon; suspect lung findings are combination of COVID-19 and fluid overload (+3.6L since admission according to EMR) -Has received a total of 60 mg Lasix since overnight event; monitor (2) DKA (diabetic ketoacidosis): Status: Acute Plan: -Repeat labs are just about to be sent including serum ketones; latest urine ketones was trace (+); continue DKA protocol in interim (3) Hypothyroidism: Status: Acute Plan: -Continue levothyroxine (4) ELINA (acute kidney injury): Problem details: Worsening; probably due to combination of above Status: Acute Plan: -Changed enoxaparin to heparin SUBQ in AM -Decreased baricitinib to 1 mg daily Time Spent With Patient Critical Care time: I spent a total of 35 minutes of critical care time on this patient's care today; this time is exclusive of procedural time.
[2022-05-06] MEDS: HEPARIN 5,000 UNIT/ML VIAL 5000 UNIT SUBCUT ×2 (13:33→20:45)
[2022-05-06] MEDS: INSULIN DRIP PREMIX 100 UNIT/100 ML PLAST..BAG 5.344 UNIT IV (14:11)
[2022-05-06 14:39] LABS: BUN Creatinine Ratio 20.7 (6-22); Blood Urea Nitrogen 44 mg/dL (9-20); Calcium 7.8 mg/dL (8.4-10.2); Carbon Dioxide 15 mmol/L (22-32); Chloride 108 mmol/L (98-107); Estimated Glomerular Filt Rate 33 mL/min (>60); Glucose 211 mg/dL (80-110); HEMOLYSIS 32 (0-50); Potassium 4.3 mmol/L (3.4-5.1); Sodium 136 mmol/L (137-145)
[2022-05-06 16:15] LABS: Ketones (Beta-Hydroxybutyrate) 3.43 mmol/L (<0.27)
[2022-05-06] MEDS: DEXTROSE 5%-0.45% NS 1,000 ML 125 ML IV (17:26)
[2022-05-06 18:06] LABS: BUN Creatinine Ratio 21.5 (6-22); Blood Urea Nitrogen 42 mg/dL (9-20); Carbon Dioxide 15 mmol/L (22-32); Chloride 107 mmol/L (98-107); Estimated Glomerular Filt Rate 37 mL/min (>60); Glucose 408 mg/dL (80-110); Potassium 3.8 mmol/L (3.4-5.1); Sodium 135 mmol/L (137-145)
[2022-05-06 18:11] LABS: HEMOLYSIS 77 (0-50)
[2022-05-06 18:47] LABS: PCO2 ABG 19.9 mmHg (35-45); pH ABG 7.43 (7.35-7.45)
[2022-05-06 18:48] LABS: Fractionated Inspired Oxygen 50; HCO3 ABG 13 mmol/L (22-26); Oxygen Saturation ABG 85 % (95-100); PO2 ABG 46 mmHg (80-100); TCO2 ABG 14 mmol/L (21-31)
[2022-05-06 18:53] LABS: HCO3 ABG 13 mmol/L (22-26); PCO2 ABG 23.9 mmHg (35-45); PO2 ABG 87 mmHg (80-100); TCO2 ABG 14 mmol/L (21-31); pH ABG 7.35 (7.35-7.45)
[2022-05-06 18:54] LABS: Fractionated Inspired Oxygen 45; Oxygen Saturation ABG 96 % (95-100)
--- NOTE | 2022-05-06 20:33 | PM.ICURNDS ---
- Date Patient Seen: 05/06/22 Time Patient Seen: 20:33 :: This patient was seen via real time interactive two-way audiovisual telecommunication. Note: Patient admitted for acute hypoxemia respiratory failure and DKA secondary to COVID pneumonia. Patient remains hypoxemia on HFNC 45/35%. Labs reviewed -> Co2 15, AG 13, and Cr 1.9. Will switch D51/2NS to D5W+100 mEQ sodium biconate running at 100 mL/hr. Cont trending BMP every hours. If developed worsening hypoxemia then will order lasix prn to avoid pulmonary edema. D/w RN at bedside.
[2022-05-06] MEDS: cefTRIAXone 1,000 MG in SODIUM CHLORIDE 0.9% 100 ML 200 MG IV (20:45)
[2022-05-06] MEDS: SODIUM BICARB 8.4% VIAL 100 MEQ in DEXTROSE 5% WATER 1,000 ML IV (21:42)
[2022-05-06] MEDS: REMDESIVIR 100 MG in SODIUM CHLORIDE 0.9% 230 ML 250 MG IV (21:42)
[2022-05-07] VITALS (31 sets, daily range): BP systolic 84–122; BP diastolic 55–67; PULSE 75–111; RESP 16–44; TEMP 36.7; O2SAT 89–99
[2022-05-07 00:41] LABS: BUN Creatinine Ratio 21.5 (6-22); Blood Urea Nitrogen 48 mg/dL (9-20); Calcium 7.6 mg/dL (8.4-10.2); Carbon Dioxide 19 mmol/L (22-32); Chloride 109 mmol/L (98-107); Estimated Glomerular Filt Rate 31 mL/min (>60); Glucose 140 mg/dL (80-110); HEMOLYSIS < 15 (0-50); Potassium 3.3 mmol/L (3.4-5.1); Sodium 139 mmol/L (137-145)
[2022-05-07] MEDS: POTASSIUM CHLORIDE IN WATER 10 MEQ/100 ML PIGGYBACK 100 MEQ IV ×6 (02:28→23:13)
[2022-05-07] MEDS: HEPARIN 5,000 UNIT/ML VIAL 5000 UNIT SUBCUT ×3 (05:35→21:22)
[2022-05-07 06:13] LABS: BUN Creatinine Ratio 24.6 (6-22); Blood Urea Nitrogen 51 mg/dL (9-20); Calcium 7.1 mg/dL (8.4-10.2); Carbon Dioxide 21 mmol/L (22-32); Chloride 107 mmol/L (98-107); Estimated Glomerular Filt Rate 34 mL/min (>60); Glucose 150 mg/dL (80-110); HEMOLYSIS 35 (0-50); Potassium 3.9 mmol/L (3.4-5.1); Sodium 137 mmol/L (137-145)
[2022-05-07] MEDS: PANTOPRAZOLE 40 MG VIAL IV (08:09)
[2022-05-07] MEDS: DEXAMETHASONE 10 MG/ML VIAL 6 MG IV (08:09)
[2022-05-07] MEDS: SODIUM CHLORIDE 0.9% FLUSH 10 ML IV ×2 (08:10→20:31)
--- NOTE | 2022-05-07 08:27 | P.PN_ITS ---
Subjective Subjective Date Patient Seen: 05/07/22 Time Patient Seen: 13:51 Interval history: Now off HFNC and on 4L NC. Also off insulin drip. Patient happy to hear he can be downgraded from the ICU. Has no complaints. Exam Vital Signs (past 8 hours): - 05/07/22 01:00 05/07/22 01:00 05/07/22 02:00 Temperature Pulse Rate 96 H Respiratory Rate 34 H Blood Pressure 102/55 L 118/58 L Pulse Oximetry 93 Oxygen Delivery Method Oxygen Flow Rate 45 05/07/22 02:00 05/07/22 03:00 05/07/22 03:00 Temperature Pulse Rate 92 H 89 Respiratory Rate 21 32 H Blood Pressure 101/59 L Pulse Oximetry 94 95 Oxygen Delivery Method Oxygen Flow Rate 45 05/07/22 04:00 05/07/22 04:00 05/07/22 04:00 Temperature 98.0 F Pulse Rate 78 Respiratory Rate 28 H Blood Pressure 107/61 Pulse Oximetry 94 Oxygen Delivery Method Heated High Flow Oxygen Flow Rate 45 05/07/22 05:00 05/07/22 05:00 05/07/22 06:00 Temperature Pulse Rate 76 95 H Respiratory Rate 19 28 H Blood Pressure 108/56 L Pulse Oximetry 99 99 Oxygen Delivery Method Oxygen Flow Rate 05/07/22 03:00 05/07/22 06:00 05/07/22 07:22 Temperature Pulse Rate 87 92 H Respiratory Rate 20 20 Blood Pressure 110/67 Pulse Oximetry 95 Oxygen Delivery Method Oxygen Flow Rate 45 05/07/22 07:00 05/07/22 07:00 05/07/22 07:00 Temperature Pulse Rate 82 Respiratory Rate 32 H Blood Pressure 105/58 L Pulse Oximetry 96 97 Oxygen Delivery Method Heated High Flow Oxygen Flow Rate 40 05/07/22 08:00 05/07/22 08:00 Temperature Pulse Rate 86 Respiratory Rate 25 H Blood Pressure 104/60 Pulse Oximetry 96 Oxygen Delivery Method Oxygen Flow Rate Fraction of Inspired Oxygen 0.77 Oxygen Delivery Method Heated High Flow Oxygen Flow Rate 40 Narrative Exam Narrative: GEN: alert, diaphoretic and ill appearing male, no acute distress. HEENT: moist mucous membranes, PERRL NECK: trachea midline, no JVD PULM: coarse breath sounds improving, no wheezes CV: tachycardic and regular rhythm, no murmurs ABD: soft, nontender, nondistended, no organomegaly EXT: warm and well perfused with no edema NEURO: awake, alert, oriented, no focal deficits noted Objective Labs Result Diagrams: 05/06/22 05:40 05/07/22 05:55 Labs: Laboratory Results - last 24 hr 05/03/22 05/06/22 05/06/22 20:30 03:26 08:00 ABG pH 7.35 7.43 ABG pCO2 23.9 L* 19.9 L* ABG pO2 87 46 L* ABG HCO3 13 L 13 L ABG Total CO2 14 L 14 L ABG O2 Saturation 96 85 L* ABG Base Excess -12.0 L -11.0 L FiO2 45 50 Sodium Potassium Chloride Carbon Dioxide BUN Creatinine Estimated GFR BUN/Creatinine Ratio Glucose Calcium Urine Color Yellow Urine Appearance Clear Urine pH 5.0 Ur Specific [place] 1.010 Urine Protein Negative Urine Glucose (UA) Negative Urine Ketones Trace H Urine Occult Blood 1+ H Urine Nitrate Negative Urine Bilirubin Negative Urine Urobilinogen 0.2 Ur Leukocyte Esterase Negative Urine RBC Cancelled Urine WBC Cancelled Ur Squamous Epith Cells Cancelled Ur Transition Epith Cell Cancelled Ur Renal Epithelial Cell Cancelled Calcium Oxalate Crystal Cancelled Uric Acid Crystals Cancelled Triple Phos Crystals Cancelled Other Crystals Cancelled Amorphous Sediment Cancelled Urine Bacteria Cancelled Hyaline Casts Cancelled Granular Casts Cancelled RBC Casts Cancelled WBC Casts Cancelled Other Casts Cancelled Urine Mucus Cancelled Urine Trichomonas Cancelled Urine Yeast Cancelled Urine Sperm Cancelled Ur Culture Indicated? Cancelled Micro UA Comment Cancelled Ketones 05/06/22 05/06/22 05/06/22 09:10 13:00 13:00 ABG pH ABG pCO2 ABG pO2 ABG HCO3 ABG Total CO2 ABG O2 Saturation ABG Base Excess FiO2 Sodium 136 L 136 L Potassium 3.5 4.3 Chloride 108 H 108 H Carbon Dioxide 16 L 15 L BUN 36 H 44 H Creatinine 1.81 H 2.13 H Estimated GFR 40 L 33 L BUN/Creatinine Ratio 19.9 20.7 Glucose 337 H D 211 H D Calcium 7.1 L 7.8 L Urine Color Urine Appearance Urine pH Ur Specific [place] Urine Protein Urine Glucose (UA) Urine Ketones Urine Occult Blood Urine Nitrate Urine Bilirubin Urine Urobilinogen Ur Leukocyte Esterase Urine RBC Urine WBC Ur Squamous Epith Cells Ur Transition Epith Cell Ur Renal Epithelial Cell Calcium Oxalate Crystal Uric Acid Crystals Triple Phos Crystals Other Crystals Amorphous Sediment Urine Bacteria Hyaline Casts Granular Casts RBC Casts WBC Casts Other Casts Urine Mucus Urine Trichomonas Urine Yeast Urine Sperm Ur Culture Indicated? Micro UA Comment Ketones 3.43 H 05/06/22 05/07/22 05/07/22 17:18 00:20 05:55 ABG pH ABG pCO2 ABG pO2 ABG HCO3 ABG Total CO2 ABG O2 Saturation ABG Base Excess FiO2 Sodium 135 L 139 137 Potassium 3.8 3.3 L 3.9 Chloride 107 109 H 107 Carbon Dioxide 15 L 19 L 21 L BUN 42 H 48 H 51 H Creatinine 1.95 H 2.23 H 2.07 H Estimated GFR 37 L 31 L 34 L BUN/Creatinine Ratio 21.5 21.5 24.6 H Glucose 408 H D 140 H D 150 H Calcium 7.0 L 7.6 L 7.1 L Urine Color Urine Appearance Urine pH Ur Specific [place] Urine Protein Urine Glucose (UA) Urine Ketones Urine Occult Blood Urine Nitrate Urine Bilirubin Urine Urobilinogen Ur Leukocyte Esterase Urine RBC Urine WBC Ur Squamous Epith Cells Ur Transition Epith Cell Ur Renal Epithelial Cell Calcium Oxalate Crystal Uric Acid Crystals Triple Phos Crystals Other Crystals Amorphous Sediment Urine Bacteria Hyaline Casts Granular Casts RBC Casts WBC Casts Other Casts Urine Mucus Urine Trichomonas Urine Yeast Urine Sperm Ur Culture Indicated? Micro UA Comment Ketones PFSH Social History household members: none Smoking Status: Never smoker Assessment & Plan Assessment & Plan narrative: 1. Sepsis with Acute hypoxemic respiratory failure, acute toxic/metabolic encephalopathy, secondary to COVID pneumonia with possible superimposed bacterial pneumonia. Sepsis now resolved. -patient may be undervaccinated against covid, reports not getting a booster in a while -has risk factors for severe disease with diabetes and CAD -COVID positive on admission -quickly escalating O2 requirements, remains today on heated high flow oxygen -CTA negative for PE -started on dexamethasone, baricitinib, remdesivir, will continue. -narrowed meropenem to rocephin 1g daily -encephalopathy now improving -passed speech eval and able to eat, transitioned insulin drip to lantus and SSI 2. Persistent sinus tachycardia -sinus tachycardia on EKG -suspect secondary to severity of illness and possibly dka. -resumed home metoprolol -continue 125/hr fluids -CTA negative for PE 3. Type 2 Diabetes with DKA vs starvation ketosis -hold oral medications, patient has been NPO for several days due to dysphagia -started on insulin infusion after worsening acidosis with bicarb of 7, glucose was in the 200s but he is on an SGLT-2 at home. Venous access was difficult, now with PICC line in place. -no diet for a few days secondary to dysphagia, given positive ketones despite insulin drip for over 24 hours suspect component of starvation ketosis -start dextrose-saline IVF at 125cc/hr -patient now eating as gap closed and transitioning to SQ lantus and SSI 4. Hypothyroidism -continue synthroid 5. CAD s/p CABG -continue statin 6. ELINA -suspect secondary to hypovolemia -Cr now almost double his admission level with diuresis -fluids as above -monitor CODE: Full Proxy: Sister Chiara Huizar [phone], other contact friend Buster Parson [phone] Dispo: Pending therapy eval for home vs SNF. Suspect he'll be ready for dc in 2- 3 days. Time Spent With Patient Critical Care time: I spent a total of [] minutes of critical care time on this patient's care to day; this time is exclusive of procedural time. Quality VTE Deep Vein Thrombosis/Pulmonary Embolism Present on Admission: No
--- NOTE | 2022-05-07 09:50 | P.TELICUPN_ITS ---
Subjective Subjective IF CAMERA ACTIVATED, patient seen via real-time interactive audiovisual communication: Camera activated Date Patient Seen: 05/07/22 Consent obtained for tele-horse trainer care: Yes Patient Location: ICU Provider location (State): [place] Other participants/roles: Bedside RN Interval history: NO acute issues. Switched over to sodium bicarbonate infusion and Co2 improving. Will plan to transition to lantus and ISS. Current Medications Current Medications Medications: Home Medications metformin 1,000 mg tablet 1,000 mg PO BID 07/22/21 [History Confirmed 07/22/21] citalopram 10 mg tablet 5 mg PO DAILY 07/23/21 [History Confirmed 07/23/21] dapagliflozin 10 mg tablet (Farxiga) 10 mg PO DAILY 07/23/21 [History Confirmed 07/23/21] glimepiride 1 mg tablet 1 mg PO DAILY 07/23/21 [History Confirmed 07/23/21] levothyroxine 75 mcg tablet 75 mcg PO DAILY 07/23/21 [History Confirmed 05/03/22] metoprolol tartrate 25 mg tablet 12.5 mg PO BID 07/23/21 [History Confirmed 05/03/22] simvastatin 10 mg tablet 10 mg PO BEDTIME 07/23/21 [History Confirmed 05/03/22] empagliflozin 25 mg tablet (Jardiance) 25 mg PO DAILY 05/03/22 [History Confirme d 05/03/22] sertraline 50 mg tablet 50 mg PO DAILY 05/03/22 [History Confirmed 05/03/22] trazodone 50 mg tablet 50 mg PO DAILY 05/03/22 [History Confirmed 05/03/22] Visit Medications (administered) Generic Name Dose Route Start Last Admin Trade Name Freq PRN Reason Stop Dose Admin Calcium Carbonate 500 mg 05/06/22 21:00 05/07/22 08:10 Calcium Carbonate 500 Mg Tab PO Not Given BID KALEB Dexamethasone 6 mg 05/04/22 09:00 05/07/22 08:09 Dexamethasone 10 Mg/Ml Vial IV 6 mg DAILY KALEB Administration Dextrose 25 gm 05/03/22 19:16 05/05/22 23:05 Dextrose 50 % In Water 25 Gm/50 Ml Syringe IV 12.5 gm PRN PRN Administration Hypoglycemia Heparin Sodium (Porcine) 5,000 unit 05/06/22 14:00 05/07/22 05:35 Heparin 5,000 Unit/Ml Vial SUBCUT 5,000 unit Q8HR KALEB Administration Remdesivir 100 mg/ Sodium 250 mls @ 250 mls/hr 05/04/22 21:00 05/06/22 22:45 Chloride IV 05/07/22 21:59 Infused DAILY@2100 KALEB Infusion INSULIN DRIP PREMIX 100 unit in 100 mls @ 6 mls/hr 05/04/22 06:30 05/07/22 00:00 Myxredlin Drip Premix IV 0.02 units/kg/hr TITRATE KALEB 1.3 mls/hr Titration Protocol Dextrose 1,000 mls @ 66.8 mls/hr 05/04/22 12:30 05/06/22 01:00 D10w IV 0 mls/hr CONT KALEB Infusion dexmedeTOMIDine in 0.9 % NaCL 400 mcg in 100 mls @ 3.39 mls/hr 05/06/22 05:00 05/06/22 07:00 Precedex IV 0 mcg/kg/hr TITRATE KALEB 0 mls/hr Titration Protocol 0.2 MCG/KG/HR Ceftriaxone Sodium 1,000 mg/ 100 mls @ 200 mls/hr 05/06/22 21:00 05/06/22 21:15 Sodium Chloride IV 05/11/22 20:59 Infused Q24H KALEB Infusion Sodium Bicarbonate 100 meq/ 1,100 mls @ 100 mls/hr 05/06/22 20:30 05/07/22 08:51 Dextrose IV Infused CONT KALEB Infusion Insulin Human Lispro 0 unit 05/03/22 21:00 05/07/22 08:10 Insulin Lispro 100 Unit/Ml 3ml Vial SUBCUT Not Given ACHS [facility] Protocol Levothyroxine Sodium 75 mcg 05/04/22 06:00 05/07/22 05:22 Levothyroxine 75 Mcg Tablet PO Not Given 0600 KALEB Metoprolol Tartrate 12.5 mg 05/04/22 21:00 05/07/22 08:10 Metoprolol Ir 25 Mg Tablet PO Not Given BID KALEB Pantoprazole Sodium 40 mg 05/04/22 09:00 05/07/22 08:09 Pantoprazole 40 Mg Vial IV 40 mg DAILY KALEB Administration Sodium Chloride 10 ml 05/04/22 21:00 05/07/22 08:10 Sodium Chloride 0.9% Flush IV 10 ml BID KALEB Administration Objective Labs Result Diagrams: 05/06/22 05:40 05/07/22 05:55 Labs: Laboratory Results - last 24 hr 05/03/22 05/06/22 05/06/22 20:30 03:26 08:00 ABG pH 7.35 7.43 ABG pCO2 23.9 L* 19.9 L* ABG pO2 87 46 L* ABG HCO3 13 L 13 L ABG Total CO2 14 L 14 L ABG O2 Saturation 96 85 L* ABG Base Excess -12.0 L -11.0 L FiO2 45 50 Sodium Potassium Chloride Carbon Dioxide BUN Creatinine Estimated GFR BUN/Creatinine Ratio Glucose Calcium Urine RBC Cancelled Urine WBC Cancelled Ur Squamous Epith Cells Cancelled Ur Transition Epith Cell Cancelled Ur Renal Epithelial Cell Cancelled Calcium Oxalate Crystal Cancelled Uric Acid Crystals Cancelled Triple Phos Crystals Cancelled Other Crystals Cancelled Amorphous Sediment Cancelled Urine Bacteria Cancelled Hyaline Casts Cancelled Granular Casts Cancelled RBC Casts Cancelled WBC Casts Cancelled Other Casts Cancelled Urine Mucus Cancelled Urine Trichomonas Cancelled Urine Yeast Cancelled Urine Sperm Cancelled Ur Culture Indicated? Cancelled Micro UA Comment Cancelled Ketones 05/06/22 05/06/22 05/06/22 09:10 13:00 13:00 ABG pH ABG pCO2 ABG pO2 ABG HCO3 ABG Total CO2 ABG O2 Saturation ABG Base Excess FiO2 Sodium 136 L 136 L Potassium 3.5 4.3 Chloride 108 H 108 H Carbon Dioxide 16 L 15 L BUN 36 H 44 H Creatinine 1.81 H 2.13 H Estimated GFR 40 L 33 L BUN/Creatinine Ratio 19.9 20.7 Glucose 337 H D 211 H D Calcium 7.1 L 7.8 L Urine RBC Urine WBC Ur Squamous Epith Cells Ur Transition Epith Cell Ur Renal Epithelial Cell Calcium Oxalate Crystal Uric Acid Crystals Triple Phos Crystals Other Crystals Amorphous Sediment Urine Bacteria Hyaline Casts Granular Casts RBC Casts WBC Casts Other Casts Urine Mucus Urine Trichomonas Urine Yeast Urine Sperm Ur Culture Indicated? Micro UA Comment Ketones 3.43 H 05/06/22 05/07/22 05/07/22 17:18 00:20 05:55 ABG pH ABG pCO2 ABG pO2 ABG HCO3 ABG Total CO2 ABG O2 Saturation ABG Base Excess FiO2 Sodium 135 L 139 137 Potassium 3.8 3.3 L 3.9 Chloride 107 109 H 107 Carbon Dioxide 15 L 19 L 21 L BUN 42 H 48 H 51 H Creatinine 1.95 H 2.23 H 2.07 H Estimated GFR 37 L 31 L 34 L BUN/Creatinine Ratio 21.5 21.5 24.6 H Glucose 408 H D 140 H D 150 H Calcium 7.0 L 7.6 L 7.1 L Urine RBC Urine WBC Ur Squamous Epith Cells Ur Transition Epith Cell Ur Renal Epithelial Cell Calcium Oxalate Crystal Uric Acid Crystals Triple Phos Crystals Other Crystals Amorphous Sediment Urine Bacteria Hyaline Casts Granular Casts RBC Casts WBC Casts Other Casts Urine Mucus Urine Trichomonas Urine Yeast Urine Sperm Ur Culture Indicated? Micro UA Comment Ketones Exam Vital Signs (past 8 hours): - 05/07/22 02:00 05/07/22 02:00 05/07/22 03:00 Temperature Pulse Rate 92 H Respiratory Rate 21 Blood Pressure 118/58 L 101/59 L Pulse Oximetry 94 Oxygen Delivery Method Oxygen Flow Rate 05/07/22 03:00 05/07/22 04:00 05/07/22 04:00 Temperature 98.0 F Pulse Rate 89 78 Respiratory Rate 32 H 28 H Blood Pressure 107/61 Pulse Oximetry 95 94 Oxygen Delivery Method Oxygen Flow Rate 45 45 05/07/22 04:00 05/07/22 05:00 05/07/22 05:00 Temperature Pulse Rate 76 Respiratory Rate 19 Blood Pressure 108/56 L Pulse Oximetry 99 Oxygen Delivery Method Heated High Flow Oxygen Flow Rate 05/07/22 06:00 05/07/22 03:00 05/07/22 06:00 Temperature Pulse Rate 95 H 87 Respiratory Rate 28 H 20 Blood Pressure 110/67 Pulse Oximetry 99 Oxygen Delivery Method Oxygen Flow Rate 45 05/07/22 07:22 05/07/22 07:00 05/07/22 07:00 Temperature Pulse Rate 92 H Respiratory Rate 20 Blood Pressure 105/58 L Pulse Oximetry 95 96 Oxygen Delivery Method Heated High Flow Oxygen Flow Rate 40 05/07/22 07:00 05/07/22 08:00 05/07/22 08:00 Temperature Pulse Rate 82 86 Respiratory Rate 32 H 25 H Blood Pressure 104/60 Pulse Oximetry 97 96 Oxygen Delivery Method Oxygen Flow Rate 05/07/22 08:00 05/07/22 09:00 05/07/22 09:00 Temperature Pulse Rate 91 H Respiratory Rate 28 H Blood Pressure 109/57 L Pulse Oximetry 96 Oxygen Delivery Method High Flow Nasal Cannula Oxygen Flow Rate Fraction of Inspired Oxygen 0.77 Oxygen Delivery Method High Flow Nasal Cannula Oxygen Flow Rate 40 Narrative Exam Narrative: NAD. Sitting up in bed on HFNC. Quality TeleICU VTE Deep Vein Thrombosis/Pulmonary Embolism Present on Admission: No Assessment & Plan Assessment & Plan narrative: NEURO: # Decondition -- Seek early mobility RESP: # Acute hypoxemia respiratory failure -- Secondary to COVID PNA w/ possible superimposed bacterial PNA -- COVID rx as below -- Abx switch to CAP coverage -- HOB elevation -- Goal SpO2 > 88% CVS: -- Goal SBP < 140 ID: # COVID PNA -- On baricitinib, remdesivir, and decadron -- On contact/airborne precaution w/ meticulous hygiene # Concern for bacterial PNA -- Cx negative to date -- On CAP coverage : # Metabolic acidosis? -- Secondary to euglycemia DKA -- Co2 is above 17 -- Will plan to trasnition to lantus and ISS -- Will turn off insulin gtt after 2 hours receiving lantus -- High lytes goal # ELINA -- Worsen despite fluids or diuretic -- MOnitor I/O -- Daily BMP -- MOnitor UOP -- If worsen then may benefit from [employer] WORKER ENDO: # DKA -- Secondary to decadron, acute sickness, and jardiance -- Plan to transition to lantus and ISS -- GOal BS < 180 GI: # Malnourish -- If patinet fails to pass swallow eval then he will need NGT placement to start TF D/w Dr. Michael and RN. Time Spent With Patient Critical Care time: I spent a total of 32 minutes of critical care time on this patient's care today; this time is exclusive of procedural time.
[2022-05-07] MEDS: INSULIN GLARGINE 100 UNIT/ML 3ML PEN 10 UNIT SUBCUT (10:22)
--- NOTE | 2022-05-07 11:28 | ST.IPCSEOM ---
Visit Care Team Role Provider Type Doctor Janay MD Primary Care Provider Non-Staff Specialty: Medical Address: Phone: Fax: Email: Samira Warren MD Other Providers Physician Specialty: Medical Address: Phone: Fax: Email: Vivian Singh MD Other Providers Physician Specialty: Medical Address: Phone: Fax: Email: Trevon Marquez MD Other Providers Physician Specialty: Medical Address: [address] [place] [address], [id number] Phone: Fax: Email: Matt Singh MD Other Providers Physician Specialty: Internal Medicine Address: Phone: Fax: Email: Augustine Roberto MD Other Providers Physician Specialty: Medical Address: Phone: Fax: Email: Umu Armas MD Other Providers Physician Specialty: Internal Medicine Address: [address] [place] [address], [address] Phone: Fax: Email: [email or web address] Eduard Moore MD Other Providers Physician Specialty: Internal Medicine Address: Phone: Fax: Email: Félix Guthrie MD Other Providers Physician Specialty: Medical Address: Phone: Fax: Email: Joby Comer MD Other Providers Physician Specialty: Internal Medicine Address: Phone: Fax: Email: Heriberto Pillai MD Other Providers Physician Specialty: Medical Address: [address] [place] [address], [id number] Phone: Fax: Email: Liliana Talamantes MD Other Providers Physician Specialty: Medical Address: Phone: Fax: Email: Annie Jaime Other Providers Physician Specialty: Medical Address: Phone: Fax: Email: Dat Donovan DO Emergency Provider Physician Referring Provider Specialty: Emergency Medicine Address: [address] [place] [address], [id number] Email: [email or web address] Mendoza MD Admit Provider Physician Attending Provider Specialty: Family Practice Address: [address] [place] [address], [address] Phone: Fax: Email: [email or web address] [email or web address] Hypothyroidism, unspecified (05/03/22) Type 2 diabetes mellitus with ketoacidosis without coma (05/03/22) Type 2 diabetes mellitus without complications (05/03/22) Atherosclerotic heart disease of [place] coronary artery without angina pectoris (05/03/22) Acute respiratory failure with hypoxia (05/03/22) Acute kidney failure, unspecified (05/03/22) COVID-19 (05/03/22) Speech-Language Pathology Swallow Evaluation ORTHOPEDIC ASSISTANT Clinical Swallow Evaluation Start: 05/05/22 12:35 Freq: Status: Active Protocol: Document 05/07/22 11:02 BONNIE (Rec: 05/07/22 11:28 LNK [id number]) Clinical Swallow Evaluation Session Time Visit Start Time 09:00 Visit Stop Time 09:45 Total Visit Minutes 45 Referral Reason for Referral dyspohagia Setting Assessment Location Acute Care Visit Type Note Type Re-evaluation Next Note Type Next Note Type Re-evaluation Patient Information Identification Type Name,Wristband History PER H&P: Mr. Riojas is a 71M with PMH spina bifida, DM, CAD s/p CABG, hypothyroidism who presents to the hospital for a weakness and a fall. He started feeling ill within the last day. He noted primarily sore throat. Initially was denying chest pain. He came to the hospital via EMS primarily for the weakness. He was COVID positive. In the ED he developed worsening shortness of breath, cough, and hypoxemia. He was started on oxygen. He was afebrile, he was tachycardic and tachypneic. Labs notable for WBC 9.7, hgb 14.2, plts 178. Creatinine 0.99. Troponin 0.022. EKG showed sinus tachycardia. COVID positive. Chest xray showed no acute process. CTA was negative for PE but showed multifocal bilateral ground glass opacities and fluid filled lower lobe bronchi consistent with mucous plugging. He was ordered for antibiotics, steroids, and remdesivir and admitted for further treatment . Upon arrival to the floor he was in quite significant respiratory distress. His oxygen saturations remained in the 80s on nasal cannula, and therefore he was started on heated high flow and transferred to the ICU. Subjective Observations Pt was in bed awake and hangry, requesting food. He was agreeable to swallow reassessment. Pt repositioned in the bed abdullahi upright position. Reported by Patient Pain Intensity 1 Pain Scale Used Numeric (0 - 10) Other Symptoms Coughing,Difficulty swallowing liquids,Difficulty swallowing pills,Difficulty swallowing solids Comment Pt has suction on at bedside. He uses suction as independently. pt continues on high flow NC. pt's hands very shaky Current Diet Nothing by mouth Objective Assessment Mental Status Alert,Responsive,Cooperative Oral Integrity WFL Dentition Within normal limits Lip Function Mild impairment Observation of Lips at Rest Symmetrical Observations of Tongue at Rest Involuntary movement(s) Tongue Protrusion Reduced range of motion, Reduced strength Tongue Retraction Reduced strength Tongue Lateralization Reduced range of motion, Incoordination Gag Reflex Within normal limits Comment OME observed informally. No overt OME deficits noted with noted comments above re: lingual strength/ROM. Food and Liquid Trials Position During Assessment Slightly reclined Liquids Trialed Ice chips,Thin,[place] Solids Trialed Puree Administration Type Tea spoon,Controlled cup sip, Cup consecutive sips,Straw, Self-feeding,Needs some assistance Oral Impairment Moderately impaired Oral Phase Comments Prolonged mastication of regular texture. While chewing , pt's respiratory rate increased and was labored. Pt is not safe for regular textures at this time. Pharyngeal Impairment Moderately impaired Pharyngeal Phase Comments Pt tolerated ice chips without cough.Pt continues to demonstrate delayed swallow response. Pt did not tolerate water via teaspoon resulting in need for suction. NTL in teaspoons , controlled cup sip and with straw was tolerated. Throat-clearing was observed following NTL ensure . puree texture was tolerated with subsequent throat clearing (silent aspiration cannot be ruled out without instrumental examination). With PO intake pt's respiratory rate increased from mid 20s to mid 40s. Pt overall condition appears to be improved, however he continues to be aspiration risk Fatigue/Endurance Mild fatigue Strategies Attempted Chin tuck Findings Swallowing Function Pharyngeal phase dysphagia Severity of Swallow Impairment Moderately impaired Contributing Factors to Swallow Reduced oral strength/ Impairment coordination/sensation, Impaired oral-pharyngeal transport,Delayed swallow initiation,Excessive pharyngeal residue Prognosis Good Based on Age,Comorbidities,Duration of symptoms/severity Impact on Safety and Functioning Risk for aspiration,Risk for inadequate nutrition/hydration Recommendations Swallowing Treatment Yes Frequency 1-2x/day while inpatient status Recommended Solids Puree Recommended Liquids Ice Chips Only Other Recommendations Small portions of puree and ice chips. 1:1 monitoring/ assist as indicated Safety Precautions/Swallowing 1 to 1 close supervision,Feed Recommendations only when alert,Reduce distractions,Remain upright ( 90 degrees) during all oral intake,Needs verbal cues to use recommended strategies, Upright position at least 30 minutes after meals,Slow rate; swallow between bites,Set-up assistance,1 to 1 feeding assistance Medication Recommendations As Tolerated,Whole in Carrier, Crushed in Carrier Discharge Recommendations senior living facility,Home with Home Health Education Patient/Caregiver Education Described results of evaluation,Patient expressed understanding of evaluation, Patient expressed understanding of safety precautions,Patient expressed understanding of feeding recommendations,Patient requires further education/ training Goals Long-term Goals Pt will safely tolerate least restrictive diet without s/sx aspiration to meet hydration and nutritional needs.
[2022-05-07] MEDS: INSULIN LISPRO 100 UNIT/ML 3ML VIAL SUBCUT (12:03)
[2022-05-07] MEDS: INSULIN LISPRO 100 UNIT/ML 3ML VIAL 20 UNIT SUBCUT (13:49)
--- NOTE | 2022-05-07 14:50 | PM.EVENT ---
Event Note Date Patient Seen: 05/07/22 Time Patient Seen: 14:50 Event Note (Rapid Response, Code, or fall): Notified by RN BS is greater than 500 after being off of insulin gtt and started on a diet. Dr. Michael ordered 20 units of insulin and repeat blood sugar remains 500. Recommend restarting insulin gtt and check BMP. D/w RN at bedside.
--- NOTE | 2022-05-07 15:02 | PC.NURSE ---
Addendum entered by Yannick Harrington R.N. 05/07/22 16:13: Patient placed on heated high flow. Administered 1L 0.9% NS bolus per DKA protocol, spoke again with Dr. Talamantes to update and ordered to DC bolus. Original Note: Blood glucose finger stick showed >500. Contacted Dr. Michael and ordered 20 units humalog. Administered insulin, rechecked blood sugar, and still showing >500. Patient then became noticeably fatigued and shaky, O2 at 90%. Dr. Talamantes contacted and ordered insulin drip protocol and BMP drawn. RT contacted and is assessing patient now.
[2022-05-07] MEDS: SODIUM CHLORIDE 0.9% 1,000 ML 1000 ML IV (15:05)
[2022-05-07 15:36] LABS: BUN Creatinine Ratio 24.5 (6-22); Blood Urea Nitrogen 54 mg/dL (9-20); Calcium 7.2 mg/dL (8.4-10.2); Carbon Dioxide 20 mmol/L (22-32); Chloride 104 mmol/L (98-107); Estimated Glomerular Filt Rate 32 mL/min (>60); HEMOLYSIS < 15 (0-50); Potassium 3.7 mmol/L (3.4-5.1); Sodium 134 mmol/L (137-145)
[2022-05-07 15:58] LABS: Glucose 612 mg/dL (80-110)
[2022-05-07] MEDS: INSULIN DRIP PREMIX 100 UNIT/100 ML PLAST..BAG IV (18:59)
[2022-05-07] MEDS: TRAZODONE 50 MG TABLET PO (20:02)
[2022-05-07] MEDS: CALCIUM CARBONATE 500 MG TAB PO (20:02)
[2022-05-07] MEDS: METOPROLOL IR 25 MG TABLET 12.5 MG PO (20:03)
[2022-05-07] MEDS: cefTRIAXone 1,000 MG in SODIUM CHLORIDE 0.9% 100 ML 200 MG IV (20:03)
[2022-05-07] MEDS: REMDESIVIR 100 MG in SODIUM CHLORIDE 0.9% 230 ML 250 MG IV (20:04)
[2022-05-07] MEDS: DEXTROSE 5%-0.45% NS 1,000 ML 100 ML IV (20:05)
--- NOTE | 2022-05-07 20:33 | PM.ICURNDS ---
- Date Patient Seen: 05/07/22 Time Patient Seen: 20:33 :: This patient was seen via real time interactive two-way audiovisual telecommunication. Note: Restarted back on insulin gtt. Repeat BMP showed Co2 20 and AG 12. On insulin gtt per DKA protocol. Most recent BS 149. Will transition to lantus if CO2 > 17 and AG <12. D/w RN at bedside.
[2022-05-07 21:02] LABS: BUN Creatinine Ratio 27.6 (6-22); Blood Urea Nitrogen 53 mg/dL (9-20); Calcium 7.5 mg/dL (8.4-10.2); Carbon Dioxide 22 mmol/L (22-32); Chloride 108 mmol/L (98-107); Estimated Glomerular Filt Rate 37 mL/min (>60); Glucose 98 mg/dL (80-110); HEMOLYSIS < 15 (0-50); Potassium 3.2 mmol/L (3.4-5.1); Sodium 140 mmol/L (137-145)
[2022-05-07] MEDS: INSULIN GLARGINE 100 UNIT/ML 3ML PEN 25 UNIT SUBCUT (21:30)
[2022-05-07] MEDS: DEXTROSE 50 % IN WATER 25 GM/50 ML SYRINGE IV (22:15)
[2022-05-08] VITALS (19 sets, daily range): BP systolic 94–137; BP diastolic 46–77; PULSE 64–99; RESP 16–42; TEMP 36.5–36.9; O2SAT 74–98
[2022-05-08 00:55] LABS: BUN Creatinine Ratio 27.2 (6-22); Blood Urea Nitrogen 52 mg/dL (9-20); Calcium 7.1 mg/dL (8.4-10.2); Carbon Dioxide 21 mmol/L (22-32); Chloride 110 mmol/L (98-107); Estimated Glomerular Filt Rate 37 mL/min (>60); Glucose 132 mg/dL (80-110); HEMOLYSIS 22 (0-50); Potassium 4.1 mmol/L (3.4-5.1); Sodium 138 mmol/L (137-145)
[2022-05-08 04:46] LABS: Add Manual Diff / Slide Review NO; Basophils Absolute Auto 0 /uL (0-100); Basophils Percent Auto 0.1 % (0-2); Eosinophils Absolute Auto 0 /uL (0-450); Hematocrit 36.5 % (41-53); Hemoglobin 12.5 g/dL (13.5-17.5); Lymphocytes Absolute Auto 600 /uL (1100-4500); Lymphocytes Percent Auto 4.4 % (25-40); Mean Corpuscular HGB Conc 34.2 % (30-36); Mean Corpuscular Hemoglobin 29.1 PG (26-34); Mean Corpuscular Volume 85.2 fL (80-100); Monocytes Absolute Auto 900 /uL (0-900); Monocytes Percent Auto 7.2 % (3-14); Neutrophils Absolute Auto 11600 /uL (1500-7000); Neutrophils Percent Auto 88.3 % (50-75); Platelet Count 264 X10^3/uL (150-400); Red Blood Cell Count 4.29 X10^6/uL (4.5-5.9); Red Cell Distribution Width 13.2 % (11.6-14.8); White Blood Cell Count 13.1 X10^3/uL (4.5-11.0)
[2022-05-08 04:49] LABS: BUN Creatinine Ratio 27.1 (6-22); Blood Urea Nitrogen 52 mg/dL (9-20); Calcium 7.1 mg/dL (8.4-10.2); Carbon Dioxide 24 mmol/L (22-32); Chloride 111 mmol/L (98-107); Estimated Glomerular Filt Rate 37 mL/min (>60); Glucose 159 mg/dL (80-110); HEMOLYSIS < 15 (0-50); Sodium 138 mmol/L (137-145)
[2022-05-08] MEDS: HEPARIN 5,000 UNIT/ML VIAL 5000 UNIT SUBCUT ×3 (05:55→21:06)
[2022-05-08] MEDS: LEVOTHYROXINE 75 MCG TABLET PO (05:56)
--- NOTE | 2022-05-08 08:29 | P.PN_ITS ---
Subjective Subjective Date Patient Seen: 05/08/22 Time Patient Seen: 12:12 Interval history: Able to wean off insulin drip at 2100 last night then given 25 units of lantus. BG this AM 227. Patient still calling his bank to have money wired to a Arabic bride. Exam Vital Signs (past 8 hours): - 05/08/22 01:00 05/08/22 01:00 05/08/22 02:00 Temperature Pulse Rate 83 Respiratory Rate 27 H Blood Pressure 109/58 L Pulse Oximetry 95 96 Oxygen Delivery Method Oxygen Flow Rate 4 4 05/08/22 02:00 05/08/22 02:00 05/08/22 03:00 Temperature Pulse Rate 89 Respiratory Rate 24 Blood Pressure 120/68 110/52 L Pulse Oximetry 97 Oxygen Delivery Method Oxygen Flow Rate 05/08/22 03:00 05/08/22 04:00 05/08/22 04:00 Temperature Pulse Rate 73 64 Respiratory Rate 16 18 Blood Pressure 94/46 L Pulse Oximetry 93 Oxygen Delivery Method Oxygen Flow Rate 4 05/08/22 04:00 05/08/22 05:00 05/08/22 05:00 Temperature Pulse Rate 81 Respiratory Rate 27 H Blood Pressure 103/59 L Pulse Oximetry 91 Oxygen Delivery Method Nasal Cannula Oxygen Flow Rate 05/08/22 06:00 05/08/22 06:37 05/08/22 06:37 Temperature 97.7 F Pulse Rate 98 H 99 H Respiratory Rate 42 H 36 H Blood Pressure 133/61 Pulse Oximetry 97 Oxygen Delivery Method Oxygen Flow Rate 4 05/08/22 07:00 05/08/22 07:00 05/08/22 08:00 Temperature Pulse Rate 91 H Respiratory Rate 24 Blood Pressure 133/58 L 111/56 L Pulse Oximetry 95 Oxygen Delivery Method Oxygen Flow Rate 05/08/22 08:00 Temperature Pulse Rate 73 Respiratory Rate 25 H Blood Pressure 111/56 L Pulse Oximetry 94 Oxygen Delivery Method Oxygen Flow Rate Fraction of Inspired Oxygen 0.77 Oxygen Delivery Method Nasal Cannula Oxygen Flow Rate 4 Narrative Exam Narrative: GEN: alert, diaphoretic and ill appearing male, no acute distress. HEENT: moist mucous membranes, PERRL NECK: trachea midline, no JVD PULM: coarse breath sounds improving, no wheezes CV: regular rate and regular rhythm, no murmurs ABD: soft, nontender, nondistended, no organomegaly EXT: warm and well perfused with no edema NEURO: awake, alert, oriented, no focal deficits noted Objective Labs Result Diagrams: 05/08/22 04:25 05/08/22 09:10 Labs: Laboratory Results - last 24 hr 05/06/22 05/07/22 05/07/22 22:30 15:05 20:09 WBC RBC Hgb Hct MCV MCH MCHC RDW Plt Count Neut % (Auto) Lymph % (Auto) [place] % (Auto) Eos % (Auto) Baso % (Auto) Neut # (Auto) Lymph # (Auto) [place] # (Auto) Eos # (Auto) Baso # (Auto) Sodium Cancelled 134 L 140 Potassium Cancelled 3.7 3.2 L Chloride Cancelled 104 108 H Carbon Dioxide Cancelled 20 L 22 BUN Cancelled 54 H 53 H Creatinine Cancelled 2.20 H 1.92 H Estimated GFR Cancelled 32 L 37 L BUN/Creatinine Ratio Cancelled 24.5 H 27.6 H Glucose Cancelled 612 H* D 98 D Hemoglobin A1c Calcium Cancelled 7.2 L 7.5 L 05/08/22 05/08/22 05/08/22 00:30 04:25 04:25 WBC 13.1 H D RBC 4.29 L Hgb 12.5 L Hct 36.5 L MCV 85.2 MCH 29.1 MCHC 34.2 RDW 13.2 Plt Count 264 Neut % (Auto) 88.3 H Lymph % (Auto) 4.4 L [place] % (Auto) 7.2 Eos % (Auto) 0.0 L Baso % (Auto) 0.1 Neut # (Auto) [address] H Lymph # (Auto) 600 L [place] # (Auto) 900 Eos # (Auto) 0 Baso # (Auto) 0 Sodium 138 Potassium 4.1 Chloride 110 H Carbon Dioxide 21 L BUN 52 H Creatinine 1.91 H Estimated GFR 37 L BUN/Creatinine Ratio 27.2 H Glucose 132 H Hemoglobin A1c 11.0 H Calcium 7.1 L 05/08/22 04:25 WBC RBC Hgb Hct MCV MCH MCHC RDW Plt Count Neut % (Auto) Lymph % (Auto) [place] % (Auto) Eos % (Auto) Baso % (Auto) Neut # (Auto) Lymph # (Auto) [place] # (Auto) Eos # (Auto) Baso # (Auto) Sodium 138 Potassium 4.0 Chloride 111 H Carbon Dioxide 24 BUN 52 H Creatinine 1.92 H Estimated GFR 37 L BUN/Creatinine Ratio 27.1 H Glucose 159 H Hemoglobin A1c Calcium 7.1 L [facility] Social History household members: none Smoking Status: Never smoker Assessment & Plan Assessment & Plan narrative: 1. Sepsis with Acute hypoxemic respiratory failure, acute toxic/metabolic en cephalopathy, secondary to COVID pneumonia with possible superimposed bacterial pneumonia. Sepsis now resolved. -patient may be undervaccinated against covid, reports not getting a booster in a while -has risk factors for severe disease with diabetes and CAD -COVID positive on admission -weaned off HFNC to 4L NC -CTA negative for PE -started on dexamethasone, baricitinib, remdesivir, will continue. -narrowed meropenem to rocephin 1g daily -encephalopathy now improving -passed speech eval and able to eat, transitioned insulin drip to NPH and SSI -PT/OT eval 2. Persistent sinus tachycardia, improving -sinus tachycardia on EKG -suspect secondary to severity of illness and was dry -resumed home metoprolol -CTA negative for PE 3. Type 2 Diabetes with DKA vs starvation ketosis, improving -hold oral medications, patient has been NPO for several days due to dysphagia -started on insulin infusion after worsening acidosis with bicarb of 7, glucose was in the 200s but he is on an SGLT-2 at home. Venous access was difficult, now with PICC line in place. -he had no diet for a few days secondary to dysphagia, given positive ketones despite insulin drip for over 24 hours suspected component of starvation ketosis -patient now eating as gap closed and transitioning to SQ NPH and high dose SSI -A1c 11%, diabetes education consulted 4. Hypothyroidism -continue synthroid 5. CAD s/p CABG -continue statin 6. ELINA, improving -suspect secondary to hypovolemia, now downtrending Cr after fluids -monitor CODE: Full Proxy: Sister Chiara Huizar [phone], other contact friend Buster Parson Dispo: Pending therapy eval for home vs SNF. Suspect he'll be ready for dc in 2- 3 days. Time Spent With Patient Critical Care time: I spent a total of [] minutes of critical care time on this patient's care today; this time is exclusive of procedural time. Quality VTE Deep Vein Thrombosis/Pulmonary Embolism Present on Admission: No
[2022-05-08] MEDS: DEXAMETHASONE 10 MG/ML VIAL 6 MG IV (08:43)
[2022-05-08] MEDS: PANTOPRAZOLE 40 MG VIAL IV (08:43)
[2022-05-08] MEDS: BARICITINIB 2 MG TABLET 1 MG PO (08:44)
[2022-05-08] MEDS: METOPROLOL IR 25 MG TABLET 12.5 MG PO ×2 (08:44→20:12)
[2022-05-08] MEDS: CALCIUM CARBONATE 500 MG TAB PO ×2 (08:44→20:12)
[2022-05-08] MEDS: INSULIN LISPRO 100 UNIT/ML 3ML VIAL SUBCUT ×4 (08:46→20:15)
[2022-05-08] MEDS: SODIUM CHLORIDE 0.9% FLUSH 10 ML IV ×2 (08:48→20:15)
[2022-05-08 09:41] LABS: BUN Creatinine Ratio 27.1 (6-22); Blood Urea Nitrogen 51 mg/dL (9-20); Calcium 7.4 mg/dL (8.4-10.2); Carbon Dioxide 21 mmol/L (22-32); Chloride 107 mmol/L (98-107); Estimated Glomerular Filt Rate 38 mL/min (>60); Glucose 245 mg/dL (80-110); HEMOLYSIS < 15 (0-50); Potassium 4.1 mmol/L (3.4-5.1); Sodium 139 mmol/L (137-145)
--- NOTE | 2022-05-08 10:28 | CM.DPC ---
DCP Cont: Discussed patient during team rounds, is noted that patient is noting some confusion. Nurse had mentioned patient had his credit card, was trying to call someone over in [place], female? Hospitalist had mentioned the possibility of a cognitive assessment, as well as POA? This DC Payroll Supervisor called over at [facility] [place] and asked head nurse, Anusha Richardson, to call this DC Payroll Supervisor back for more of a history on patient. Had left her a message on Wed, asking her about upgrading his level of care at the facility. P: DCP to continue to follow. Patient is continuing on oxygen, insulin drip, is not medically stable. Can potentially consider Nya, may be an option for patient since he has been ICU status. Anusha Richardson at [facility] will be calling this DC Payroll Supervisor back. Mone Stephen RN/Marine Service Operator
--- NOTE | 2022-05-08 10:50 | PM.PN.EICU ---
Subjective Subjective IF CAMERA ACTIVATED, patient seen via real-time interactive audiovisual communication: Camera activated Consent obtained for tele-donor services team leader care: Yes Patient Location: ICU Provider location (State): [place] Other participants/roles: RN Interval history: Patient on 2lNC now and tranisitoned to insulin basal bolus. remains delirious, but not neccisarily hyperactive Current Medications Current Medications Medications: Home Medications metformin 1,000 mg tablet 1,000 mg PO BID 07/22/21 [History Confirmed 07/22/21] citalopram 10 mg tablet 5 mg PO DAILY 07/23/21 [History Confirmed 07/23/21] dapagliflozin 10 mg tablet (Farxiga) 10 mg PO DAILY 07/23/21 [History Confirmed 07/23/21] glimepiride 1 mg tablet 1 mg PO DAILY 07/23/21 [History Confirmed 07/23/21] levothyroxine 75 mcg tablet 75 mcg PO DAILY 07/23/21 [History Confirmed 05/03/22] metoprolol tartrate 25 mg tablet 12.5 mg PO BID 07/23/21 [History Confirmed 05/03/22] simvastatin 10 mg tablet 10 mg PO BEDTIME 07/23/21 [History Confirmed 05/03/22] empagliflozin 25 mg tablet (Jardiance) 25 mg PO DAILY 05/03/22 [History Confirmed 05/03/22] sertraline 50 mg tablet 50 mg PO DAILY 05/03/22 [History Confirmed 05/03/22] trazodone 50 mg tablet 50 mg PO DAILY 05/03/22 [History Confirmed 05/03/22] Visit Medications (administered) Generic Name Dose Route Start Last Admin Trade Name Dileepq PRN Reason Stop Dose Admin Calcium Carbonate 500 mg 05/06/22 21:00 05/08/22 08:44 Calcium Carbonate 500 Mg Tab PO 500 mg BID KALEB Administration Dexamethasone 6 mg 05/04/22 09:00 05/08/22 08:43 Dexamethasone 10 Mg/Ml Vial IV 05/13/22 08:59 6 mg DAILY KALEB Administration Dextrose 25 gm 05/03/22 19:16 05/07/22 22:15 Dextrose 50 % In Water 25 Gm/50 Ml Syringe IV 12.5 gm PRN PRN Administration Hypoglycemia Heparin Sodium (Porcine) 5,000 unit 05/06/22 14:00 05/08/22 05:55 Heparin 5,000 Unit/Ml Vial SUBCUT 5,000 unit Q8HR KALEB Administration INSULIN DRIP PREMIX 100 unit in 100 mls @ 6 mls/hr 05/04/22 06:30 05/07/22 21:24 Myxredlin Drip Premix IV 0 units/kg/hr TITRATE KALEB 0 mls/hr Titration Protocol Dextrose 1,000 mls @ 66.8 mls/hr 05/04/22 12:30 05/06/22 01:00 D10w IV 0 mls/hr CONT KALEB Infusion dexmedeTOMIDine in 0.9 % NaCL 400 mcg in 100 mls @ 3.39 mls/hr 05/06/22 05:00 05/06/22 07:00 Precedex IV 0 mcg/kg/hr TITRATE KALEB 0 mls/hr Titration Protocol 0.2 MCG/KG/HR Ceftriaxone Sodium 1,000 mg/ 100 mls @ 200 mls/hr 05/06/22 21:00 05/07/22 21:21 Sodium Chloride IV 05/11/22 20:59 Infused Q24H KALEB Infusion Insulin Human Lispro 0 unit 05/07/22 16:45 05/08/22 08:46 Insulin Lispro 100 Unit/Ml 3ml Vial SUBCUT 4 unit ACHS KALEB Administration Protocol Levothyroxine Sodium 75 mcg 05/04/22 06:00 05/08/22 05:56 Levothyroxine 75 Mcg Tablet PO 75 mcg 0600 KALEB Administration Metoprolol Tartrate 12.5 mg 05/04/22 21:00 05/08/22 08:44 Metoprolol Ir 25 Mg Tablet PO 12.5 mg BID KALEB Administration Pantoprazole Sodium 40 mg 05/04/22 09:00 05/08/22 08:43 Pantoprazole 40 Mg Vial IV 40 mg DAILY KALEB Administration Sodium Chloride 10 ml 05/04/22 21:00 05/08/22 08:48 Sodium Chloride 0.9% Flush IV 10 ml BID KALEB Administration Trazodone HCl 50 mg 05/07/22 21:00 05/07/22 20:02 Trazodone 50 Mg Tablet PO 50 mg BEDTIME KALEB Administration Objective Labs Result Diagrams: 05/08/22 04:25 05/08/22 09:10 Labs: Laboratory Results - last 24 hr 05/04/22 05/06/22 05/07/22 15:41 22:30 15:05 WBC RBC Hgb Hct MCV MCH MCHC RDW Plt Count Neut % (Auto) Lymph % (Auto) [place] % (Auto) Eos % (Auto) Baso % (Auto) Neut # (Auto) Lymph # (Auto) [place] # (Auto) Eos # (Auto) Baso # (Auto) VBG pH Cancelled VBG pCO2 Cancelled VBG pO2 Cancelled VBG HCO3 Cancelled VBG Total CO2 Cancelled VBG O2 Saturation Cancelled VBG Base Excess Cancelled Sodium Cancelled 134 L Potassium Cancelled 3.7 Chloride Cancelled 104 Carbon Dioxide Cancelled 20 L BUN Cancelled 54 H Creatinine Cancelled 2.20 H Estimated GFR Cancelled 32 L BUN/Creatinine Ratio Cancelled 24.5 H Glucose Cancelled 612 H* D Hemoglobin A1c Calcium Cancelled 7.2 L 05/07/22 05/08/22 05/08/22 20:09 00:30 04:25 WBC RBC Hgb Hct MCV MCH MCHC RDW Plt Count Neut % (Auto) Lymph % (Auto) [place] % (Auto) Eos % (Auto) Baso % (Auto) Neut # (Auto) Lymph # (Auto) [place] # (Auto) Eos # (Auto) Baso # (Auto) VBG pH VBG pCO2 VBG pO2 VBG HCO3 VBG Total CO2 VBG O2 Saturation VBG Base Excess Sodium 140 138 Potassium 3.2 L 4.1 Chloride 108 H 110 H Carbon Dioxide 22 21 L BUN 53 H 52 H Creatinine 1.92 H 1.91 H Estimated GFR 37 L 37 L BUN/Creatinine Ratio 27.6 H 27.2 H Glucose 98 D 132 H Hemoglobin A1c 11.0 H Calcium 7.5 L 7.1 L 05/08/22 05/08/22 05/08/22 04:25 04:25 09:10 WBC 13.1 H D RBC 4.29 L Hgb 12.5 L Hct 36.5 L MCV 85.2 MCH 29.1 MCHC 34.2 RDW 13.2 Plt Count 264 Neut % (Auto) 88.3 H Lymph % (Auto) 4.4 L [place] % (Auto) 7.2 Eos % (Auto) 0.0 L Baso % (Auto) 0.1 Neut # (Auto) 96152 H Lymph # (Auto) 600 L [place] # (Auto) 900 Eos # (Auto) 0 Baso # (Auto) 0 VBG pH VBG pCO2 VBG pO2 VBG HCO3 VBG Total CO2 VBG O2 Saturation VBG Base Excess Sodium 138 139 Potassium 4.0 4.1 Chloride 111 H 107 Carbon Dioxide 24 21 L BUN 52 H 51 H Creatinine 1.92 H 1.88 H Estimated GFR 37 L 38 L BUN/Creatinine Ratio 27.1 H 27.1 H Glucose 159 H 245 H Hemoglobin A1c Calcium 7.1 L 7.4 L Exam Vital Signs (past 8 hours): - 05/08/22 03:00 05/08/22 03:00 05/08/22 04:00 Temperature Pulse Rate 73 Respiratory Rate 16 Blood Pressure 110/52 L 94/46 L Pulse Oximetry 93 Oxygen Delivery Method Oxygen Flow Rate 05/08/22 04:00 05/08/22 04:00 05/08/22 05:00 Temperature Pulse Rate 64 Respiratory Rate 18 Blood Pressure 103/59 L Pulse Oximetry Oxygen Delivery Method Nasal Cannula Oxygen Flow Rate 4 05/08/22 05:00 05/08/22 06:00 05/08/22 06:37 Temperature 97.7 F Pulse Rate 81 98 H 99 H Respiratory Rate 27 H 42 H 36 H Blood Pressure Pulse Oximetry 91 97 Oxygen Delivery Method Oxygen Flow Rate 4 05/08/22 06:37 05/08/22 07:00 05/08/22 07:00 Temperature Pulse Rate 91 H Respiratory Rate 24 Blood Pressure 133/61 133/58 L Pulse Oximetry 95 Oxygen Delivery Method Oxygen Flow Rate 05/08/22 08:00 05/08/22 08:00 Temperature Pulse Rate 73 Respiratory Rate 25 H Blood Pressure 111/56 L 111/56 L Pulse Oximetry 94 Oxygen Delivery Method Oxygen Flow Rate Fraction of Inspired Oxygen 0.77 Oxygen Delivery Method Nasal Cannula Oxygen Flow Rate 4 Narrative Exam Narrative: surrogate for exam is primary team Quality TeleICU VTE Deep Vein Thrombosis/Pulmonary Embolism Present on Admission: No Assessment & Plan Assessment & Plan narrative: NEURO: # Decondition -- Seek early mobility RESP: # Acute hypoxemia respiratory failure -- Secondary to COVID PNA w/ possible superimposed bacterial PNA -- COVID rx as below -- Abx switch to CAP coverage -- HOB elevation -- Goal SpO2 > 88% -- on 2lnc now CVS: -- Goal SBP < 140 ID: # COVID PNA -- On baricitinib, remdesivir, and decadron -- On contact/airborne precaution w/ meticulous hygiene # Concern for bacterial PNA -- Cx negative to date -- On CAP coverage : # Metabolic acidosis? -- dka reslved -- trend vbg -- hold bicabr gtt -- trend bmp # ELINA -- monitor UO -- trend bmp -- cr seems to improving - monitor BUN -- avoid nephrotoxic agents ENDO: dka resolved - insulin basal bolus GI: # Malnourish -- If patinet fails to pass swallow eval then he will need NGT placement to start TF Time Spent With Patient Critical Care time: I spent a total of [35] minutes of critical care time on this patient's care today; this time is exclusive of procedural time.
[2022-05-08] MEDS: INSULIN NPH 100 UNIT/ML VIAL 10 UNIT SUBCUT ×2 (11:28→17:23)
[2022-05-08] MEDS: SERTRALINE 50 MG TABLET PO (11:34)
--- NOTE | 2022-05-08 11:35 | PT.IIE ---
Current Diagnoses Hypothyroidism, unspecified (05/03/22) Type 2 diabetes mellitus with ketoacidosis without coma (05/03/22) Type 2 diabetes mellitus without complications (05/03/22) Atherosclerotic heart disease of [place] coronary artery without angina pectoris (05/03/22) Acute respiratory failure with hypoxia (05/03/22) Acute kidney failure, unspecified (05/03/22) COVID-19 (05/03/22) Physical Therapy Inpatient Evaluation/Re-Eval M1 PT/OT-IP Prior Functional Status Start: 05/08/22 08:46 Freq: NEEDED Status: Active Protocol: Document 05/08/22 11:35 AW (Rec: 05/08/22 12:07 AW [id number]) Medical Review Prior Functional Status Medical History Reviewed Yes Communication Pt is able to make his needs known but with some confusion. He is a poor historian. Mobility and Gait Pt states he uses a FWW but not as often as I should. Activities of Daily Living and IADL's Pt denies he gets any regular assist with ADL's. Social History Household Members none Living Arrangements Detention [facility] Home Equipment Front Wheel Walker Additional Social History Comment Pt resides at [facility]. M2 PT-IP Current Condition Start: 05/08/22 08:46 Freq: NEEDED Status: Active Protocol: Document 05/08/22 11:35 AW (Rec: 05/08/22 12:07 AW [id number]) Physical Therapy Current Condition Current Condition Evaluation Date 05/08/22 Treatment Diagnosis sepsis, COVID PNA; encephalopathy; impaired mobility and gait Onset Date 05/03/22 M3 PT-IP Subjective Start: 05/08/22 08:46 Freq: NEEDED Status: Active Protocol: Document 05/08/22 11:35 AW (Rec: 05/08/22 12:07 AW [id number]) Subjective Physical Therapy Visit Type Type Initial Evaluation Visit Start Time 11:15 Visit Stop Time 11:35 Total Visit Minutes 20 Notes Co-eval with OT. Per chart notes, pt had been needing 2PA for transfer. Physical Therapy Visit Comments Patient Comments I don't like much help. I like to keep to myself. Patient Goals Unable to state M4 PT-IP Mobility and Gait Start: 05/08/22 08:46 Freq: NEEDED Status: Active Protocol: Document 05/08/22 11:35 AW (Rec: 05/08/22 12:07 AW [id number]) PT-Bed Mobility Assessment Supine to Sit Supine to Sit Minimal Assistance,1 Person Assistance PT-Transfer Assessment Sit to and From Stand Sit to and from Stand Minimal Assistance,1 Person Assistance,Use of Upper Extremities Equipment Transfer Assistive Device Gait Belt,Front Wheeled Walker Orthotic/Prosthetic Devices or Brace: No Transfers Transfer Destination Chair Transfer Technique Stand Step Pivot Transfer Ability Level of Assist Minimal Assistance,1 Person Assistance,Use of Upper Extremities Comments Mobility Comments Pt was lying in bed as PT and OT arrived. He initiated supine to sit but needed assist from sidelying. SpO2 was 94% on 2 L/min O2 via NC. Pt stood min A and used FWW to transfer to the chair set up on his left side. In sitting, he was able to scoot back on the chair for positioning. SpO2 was stable. Pt was left with OT for further assessment . Gait Assessment Comments Gait Comments Did not progress beyond transfers today due to fatigue . PT-Balance Assessment Sitting Balance and Reactions Static Sitting Balance Ability Good Dynamic Sitting Balance Ability Fair Standing Balance and Reactions Static Standing Balance Ability Fair Dynamic Standing Balance Ability Fair Device Used FWW M5 PT-IP Objective Assessments Start: 05/08/22 08:46 Freq: NEEDED Status: Active Protocol: Document 05/08/22 11:35 AW (Rec: 05/08/22 12:07 AW [id number]) Orientation Orientation/Cognition Level of Alertness Confusional State Orientation Name,Place Safety Awareness Decreased Safety Awareness Memory Description Short Term Impaired Gross Range of Motion Lower Extremity ROM Assessment Within Functional Limits Strength Lower Extremity Strength Assessment Bilaterally Impaired Hip 4-/5 Knee 4+/5 ext; 4-/5 flex Ankle 4/5 DF; PF not tested Sensation Assessment Sensation Gross Sensation WNL Muscle Tone Muscle Tone WNL Yes M6 PT-IP Treatment Start: 05/08/22 08:46 Freq: NEEDED Status: Active Protocol: Document 05/08/22 11:35 AW (Rec: 05/08/22 12:07 AW [id number]) Physical Therapy Treatment Education Education Provided Safety M7 PT-IP Assessment and Plan Start: 05/08/22 08:46 Freq: NEEDED Status: Active Protocol: Document 05/08/22 11:35 AW (Rec: 05/08/22 12:15 AW [id number]) PT Summary Assessment and Plan Potential Rehabilitation Potential Fair Status of Condition at Evaluation Evolving Summary Impairments Strength,Balance,Cognition,Bed Mobility,Transfers,Gait, Activity Tolerance Assessment Summary Buster is a 71 yo resident of [facility] who is admitted with sepsis secondary to COVID pneumonia. Per DCP, pt is independent at baseline. Pt reports irregular use of FWW. He has been needing 2 person assist for transfers with nursing. On assessment today, pt was confused but required no more than min assist x 1 for bed mobility and transfers. SpO2 was stable at 93-94% on 2 L/ min via NC. Fatigue limited his mobility and he was unable to progress to gait this date . If pt is able to progress his mobility during hospital stay, he may be appropriate to return to [facility] with increased assist and home health PT to improve his strength and mobility independence. Will continue to assess and refine discharge recommendation. Goals Bed Mobility Goal Standby Assistance Transfer Goal Standby Assistance,Front Wheeled Walker Gait Goal Standby Assistance,Front Wheel Walker Gait Distance 75 Other Goals - progress gait and transfers to [facility] with FWW Days to Meet Goals 8 Frequency of Treatment Frequency Of Treatment Once a Day Treatment Plan Physical Therapy Treatment Plan Bed Mobility Training,Transfer Training,Gait Training, Therapeutic Exercise,Balance Retraining,Discharge Planning, Hot or Cold Pack,Neuromuscular Re-ed Other Recommendations and Next Treatment transfers; gait with FWW; ther Focus ex for LE strength Precautions Other Precautions falls risk; COVID precautions Recommendations To Nursing Amount of Assist Needed 1 Person Assist,2 Person Assist Discharge Recommendations PT Discharge Recommendations Home with Assistance,Home with 24/7 Assist Available,Home Health Transportation Needs at Discharge Private Vehicle,Wheelchair/ Cabulance
--- NOTE | 2022-05-08 11:55 | OT.IP.EVAL ---
Current Diagnoses Hypothyroidism, unspecified (05/03/22) Type 2 diabetes mellitus with ketoacidosis without coma (05/03/22) Type 2 diabetes mellitus without complications (05/03/22) Atherosclerotic heart disease of [place] coronary artery without angina pectoris (05/03/22) Acute respiratory failure with hypoxia (05/03/22) Acute kidney failure, unspecified (05/03/22) COVID-19 (05/03/22) Occupational Therapy Inpatient Evaluation/Re-Eval M1 PT/OT-IP Prior Functional Status Start: 05/08/22 08:46 Freq: NEEDED Status: Active Protocol: Document 05/08/22 12:39 [facility] (Rec: 05/08/22 13:04 [facility] [id number]) Medical Review Prior Functional Status Medical History Reviewed Yes Communication Pt is able to make his needs known but with some confusion. He is a poor historian. Mobility and Gait Pt states he uses a FWW but not as often as I should. Activities of Daily Living and IADL's Pt denies he gets any regular assist with ADL's. Pt goes to meals at [facility]. Social History Household Members none Living Arrangements [facility] Facility Home Environment Standard Height Toilet,Walk in Shower Home Equipment Front Wheel Walker,Straight Cane,Shower Seat without Backrest Additional Social History Comment Pt resides at [facility]. M2 OT-IP Current Condition Start: 05/08/22 12:36 Freq: Status: Active Protocol: Document 05/08/22 12:39 [facility] (Rec: 05/08/22 13:04 [facility] [id number]) Occupational Therapy Current Condition Current Condition Evaluation Date 05/08/22 Treatment Diagnosis Sepsis, COVID +, acute metabolic encephalopathy Diagnosis Onset Date 05/06/22 M3 OT- IP Subjective and Pain Start: 05/08/22 12:36 Freq: Status: Active Protocol: Document 05/08/22 12:39 [facility] (Rec: 05/08/22 13:04 [facility] [id number]) OT- Subjective Occupational Therapy Visit Type Type Initial Evaluation Visit Start Time 11:15 Visit Stop Time 11:55 Total Visit Minutes 40 Occupational Therapy Visit Comments Patient Comments Pt agreed to get up for OT eval, Pt also present as per nursing pt needing two person assist. Patient/Caregiver Goals To go home. OT Pain Assessment Pain When Pain Assessed At Rest Pain Present Pain Present Pain Reported Location Mouth Intensity 4 M4 OT- IP ADL's Start: 05/08/22 12:36 Freq: Status: Active Protocol: Document 05/08/22 12:39 [facility] (Rec: 05/08/22 13:04 [facility] [id number]) OT [id number] Comments OT Self-Feeding Comments Assist with set-up due to arthritic changes in her hands . OT ADL-Grooming General Evaluation Grooming Ability Standby Assistance Areas Needing Assistance Retrieving/Set-up of Grooming Items Comments OT Grooming Comments Assist for set-up as pt's hands tremor at time and needing assist for set-up. OT ADL-Oral Care General Eval Oral Care Ability Standby Assistance Areas of Assistance Retrieving/Set-Up of Items Comments Oral Care Comments Pt able to do while seated at the recliner after initial set -up assist. OT ADL-Dressing General Eval Lower Body Dressing Ability Standby Assistance Comments OT Dressing Comments Pt able to bring his foot up to kaitlynn/doff his socks at this time. OT ADL-Toileting General Evaluation Toileting Ability Total Assistance Comments OT Toileting Comments Pt not having to use the toilet at this time. Pt having chirinos in place. OT ADL-Bathing Comments OT Bathing Comments Not performed. M5 OT- IP IADL's Start: 05/08/22 12:36 Freq: Status: Active Protocol: Document 05/08/22 12:39 [facility] (Rec: 05/08/22 13:04 [facility] [id number]) OT-Instrumental Activities of Daily Living Home Safety Awareness Home Safety Comments Not able to ask at pt getting frustrated with his mouth pain and wanting to have Tylenol SETH. Pt's nurse notified. Meal Preparation Meal Preparation Caregiver Provides Assist Driving Driving Concerns Identified Regarding Safety M6 OT- IP Functional Cognition Start: 05/08/22 12:36 Freq: Status: Active Protocol: Document 05/08/22 12:39 [facility] (Rec: 05/08/22 13:04 [facility] [id number]) Cognitive Factors Limiting Selfcare Function Cognitive Ability Level of Alertness Alert Patient Orientation Name,Place,Situation Attention Span Ability Capable of Focused Attention, Capable of Sustained Attention Ability to Follow Commands Able to Follow One Step Commands Memory Description Short Term Impaired Cognitive Comments Cognitive Assessment Comments Pt able to follow commands for ADl and mobility needs appropriately. Pt would benefit from formal cognitive eval however pt stating to get frustrated at the end of OT eval and requesting to have Tylenol due to his mouth pain. Nursing notified of pt's request. OT- Vision and Hearing OT- Hearing Assessment OT- Hearing Assessment WFL M7 OT- IP Mobility and Balance Start: 05/08/22 12:36 Freq: Status: Active Protocol: Document 05/08/22 12:39 [facility] (Rec: 05/08/22 13:04 [facility] [id number]) OT- Bed Mobility Assessment Supine to Sit Supine to Sit Assist Minimal Assistance OT-Transfer Assessment Sit to and From Stand Sit to and from Stand Minimal Assistance Transfers Transfer Ability Minimal Assistance Technique Transfer Destination Bed,Chair Transfer Technique Stand Step Pivot Devices Transfer Assistive Devices Gait Belt,Front Wheeled Walker Comments Mobility Comments WALDO for bed mobility and to help stand to FWW and able to transfer with MINAx1 with FWW. Pt on 4L O2 and at 94%. Pt admits that at home that he should use the FWW more ofeten then he does. OT- Balance Assessment Sitting Balance and Reactions Static Sitting Balance Ability Normal Dynamic Sitting Balance Ability Good Standing Balance and Reactions Static Standing Balance Ability Fair Dynamic Standing Balance Ability Fair M8 OT- IP Objective Assessments Start: 05/08/22 12:36 Freq: Status: Active Protocol: Document 05/08/22 12:39 [facility] (Rec: 05/08/22 13:04 [facility] [id number]) OT Gross Range of Motion Upper Extremity Range of Motion ROM Impairments grossly WFL, LUE slightly decreased AROM than rigth side OT-Muscle Tone Assessment Muscle Tone WNL Yes M9 OT- IP Assessment and Plan Start: 05/08/22 12:36 Freq: Status: Active Protocol: Document 05/08/22 12:39 [facility] (Rec: 05/08/22 13:04 [facility] [id number]) OT Summary Assessment and Plan Potential Rehabilitation Potential Good Analytic Complexity at Evaluation Moderate Summary OT Impairments Pain,Balance,Coordination, Functional Cognition, Functional Mobility,Dressing, Toileting,Toilet Transfers, Shower Transfers,Activity Tolerance Progress Towards Goals Progressing Toward Goals Assessment Summary Pt MOD complexity and main barriers are decreased activity tolerance and on 4L on O2, now needing one person assist for ADL and mobility needs with FWW. Pt would benefit from increased assist at his facility and home health when medically stable. Goals Self-Feeding Goal Independent Grooming Goal Independent Dressing Goal Independent Toileting Goal Independent Bathing Goal Independent Toilet Transfer Goal Independent Shower Transfer Goal Independent Days to Meet Goals 15 Frequency of Treatment Frequency Of Treatment Once a Day Treatment Plan OT Treatment Plan ADL Training,Functional Cognition Training,Functional Mobility,Patient/Family Education,Discharge Planning Discharge Recommendations OT Discharge Recommendations Home with / Assist Available,Home Health Transportation Needs at Discharge Private Vehicle,Wheelchair/ Cabulance
[2022-05-08] MEDS: ACETAMINOPHEN 325 MG TABLET 650 MG PO (12:01)
--- NOTE | 2022-05-08 13:59 | DIET.CONS ---
Dietary Consultation Note Admission Date: 05/03/2022 17:06 Assessment: TED consulted for hgA1c of 11%. Buster is covid +. TED tried calling Buster twice for assessment, no answer. Will try again. Electronically Signed by: Krys Becerra 05/08/22 13:59 Clinical Dietitian [address] [id number]
--- NOTE | 2022-05-08 16:17 | DIET.CONS ---
Dietary Consultation Note Admission Date: 05/03/2022 17:06 Assessment: 71y/o M with sepsis and acute respiratory failure secondary to covid. Also has T2DM with hyperglycemia and HgA1c of 11%. States Dr. William Sethi helps him manage his BG. Use to see an RD in [place] years ago. PO currently very poor. On a dysphagia diet. Recent BG today >200 mg/dL. Buster states his hgA1c is usually around 6.5%, though he cannot recall when the last time this was. Does not check his BG at home. Does not exercise. Eats most meals at assisted living facility, but he often eats out for dinner. Diet recall indicates potential for high carb intake (OJ, desserts most days), however he is not open to suggestions as to how to manage his BG. When this RD/CDCES asked questions regarding his h/o with seeing an RD or about things he could do to manage BG, he replied ma'am you are asking very personal questions and I do not want to answer them. Assured the pt that he did not have to answer questions that he was uncomfortable answering and that this RD/CDCES was trying to help determine ways to bring his HgA1c down. He is open to a protein shake. States his appetite has been very poor and he needs more time to try to eat. States the ensures give him diarrhea. Poor PO since admission (5days) increases his risk of malnutrition. Rec considerations for nutrition support if pt is unable to increase PO. Discussed insulin and BG with hospitalist. Plan to increase NPH tonight to 15u. Ht: 185.42 cm Wt: 70.1 kg BMI: 19.4 UBW: 70kg Last BM: 05/08/22 (05/08/22 06:00) MNA: 8 Sean Score: 15 Diet: 05/05/22 Dinner Dysphagia Diet Diet Modifications: May Advance Diet as Tolerated: No Liquid consistency: [place] Consistency Food texture: Dysphagia Pureed Nutrition Percent Meal Consumed 0% 05/08/22 14:46 Percent Meal Consumed 25% 05/07/22 13:45 Labs: RBC 4.29 X10^6/uL (4.5-5.9) L 05/08/22 04:25 Hgb 12.5 g/dL (13.5-17.5) L 05/08/22 04:25 Hct 36.5 % (41-53) L 05/08/22 04:25 Creatinine 1.88 mg/dL (0.66-1.25) H 05/08/22 09:10 Hemoglobin A1c 11.0 % (4.0-6.0) H 05/08/22 04:25 Lactate 1.8 mmol/L (0.7-2.1) 05/04/22 03:57 NT-Pro-B Natriuret Pep 301 pg/mL (<125) H 05/03/22 15:19 Nutrition Diagnosis: Inadequate energy intake r/t poor appetite aeb pt report and documented PO ; Predicted excessive CHO intake r/t nutrition knowledge deficit and stage of change aeb diet recall and pt report Interventions: Protein shake with fruit 2-3x per day light yogurt with half scoop pro powder with 2 servings of fruit (40g CHO) EER: 2100 kcal (30g/kg per BMI) 84-105g PRO (1.2-1.5g per age and risk for malnutrition) Monitoring/Evaluations: shake tolerance, weight, malnutrition risk factors, PO, BG Electronically Signed by: Krys Becerra 05/08/22 16:17 Clinical Dietitian, [address] [address]
--- NOTE | 2022-05-08 16:21 | ST.IPCSEOM ---
Visit Care Team Role Provider Type Doctor Janay MD Primary Care Provider Non-Staff Specialty: Medical Address: Phone: Fax: Email: Samira Warren MD Other Providers Physician Specialty: Medical Address: Phone: Fax: Email: Vivian Singh MD Other Providers Physician Specialty: Medical Address: Phone: Fax: Email: Trevon Marquez MD Other Providers Physician Specialty: Medical Address: [address] [place] [address], [address] Phone: Fax: Email: Matt Singh MD Other Providers Physician Specialty: Internal Medicine Address: Phone: Fax: Email: Augustine Roberto MD Other Providers Physician Specialty: Medical Address: Phone: Fax: Email: Umu Armas MD Other Providers Physician Specialty: Internal Medicine Address: [address] [place] [address], [address] Phone: Fax: Email: [email or web address] Eduard Moore MD Other Providers Physician Specialty: Internal Medicine Address: Phone: Fax: Email: Félix Guthrie MD Other Providers Physician Specialty: Medical Address: Phone: Fax: Email: Joby Comer MD Other Providers Physician Specialty: Internal Medicine Address: Phone: Fax: Email: Heriberto Pillai MD Other Providers Physician Specialty: Medical Address: [address] [place] [address], [address] Phone: Fax: Email: Liliana Talamantes MD Other Providers Physician Specialty: Medical Address: Phone: Fax: Email: Annie Jaime Other Providers Physician Specialty: Medical Address: Phone: Fax: Email: Dat Donovan DO Emergency Provider Physician Referring Provider Specialty: Emergency Medicine Address: [address] [place] [address], [address] Email: [email or web address] Maya Mendoza MD Admit Provider Physician Attending Provider Specialty: Family Practice Address: [address] [place] [address], [address] Phone: Fax: Email: [email or web address] Diagnoses Hypothyroidism, unspecified (05/03/22) Type 2 diabetes mellitus with ketoacidosis without coma (05/03/22) Type 2 diabetes mellitus without complications (05/03/22) Atherosclerotic heart disease of [place] coronary artery without angina pectoris (05/03/22) Acute respiratory failure with hypoxia (05/03/22) Acute kidney failure, unspecified (05/03/22) COVID-19 (05/03/22) Speech-Language Pathology Swallow Evaluation DIESEL MACHINIST Clinical Swallow Evaluation Start: 05/05/22 12:35 Freq: Status: Active Protocol: Document 05/08/22 16:00 CG (Rec: 05/08/22 16:20 CG [id number]) Clinical Swallow Evaluation Session Time Visit Start Time 01:00 Visit Stop Time 01:30 Total Visit Minutes 30 Referral Reason for Referral dysphagia Setting Assessment Location Acute Care Visit Type Note Type Re-evaluation Next Note Type Next Note Type Re-evaluation Patient Information Identification Type Name History PER H&P: Mr. Riojas is a 71M with PMH spina bifida, DM, CAD s/p CABG, hypothyroidism who presents to the hospital for a weakness and a fall. He started feeling ill within the last day. He noted primarily sore throat. Initially was denying chest pain. He came to the hospital via EMS primarily for the weakness. He was COVID positive. In the ED he developed worsening shortness of breath, cough, and hypoxemia. He was started on oxygen. He was afebrile, he was tachycardic and tachypneic. Labs notable for WBC 9.7, hgb 14.2, plts 178. Creatinine 0.99. Troponin 0.022. EKG showed sinus tachycardia. COVID positive. Chest xray showed no acute process. CTA was negative for PE but showed multifocal bilateral ground glass opacities and fluid filled lower lobe bronchi consistent with mucous plugging. He was ordered for antibiotics, steroids, and remdesivir and admitted for further treatment . Upon arrival to the floor he was in quite significant respiratory distress. His oxygen saturations remained in the 80s on nasal cannula, and therefore he was started on heated high flow and transferred to the ICU. Subjective Observations Pt was seated upright in chair . He was initially not agreeable to re-evaluation as he wanted to make a phone call , but changed his mind saying he would do it later. He was intermittently agitated throughout the assessment, stating I don't believe you when DIESEL MACHINIST explained that his symptoms were indicative of possible aspiration. At the end of the evaluation, he stated he didn't want to see that other speech therapist and would run her out of the room because I don't have a speech impediment, despite present DIESEL MACHINIST explaining the role of DIESEL MACHINIST in assessing and treating dysphagia. Pt did not independently comply with compensatory strategies for swallowing during self-fed trials. Pt refused to participate in cognitive screening, stating that his doctor was crazy for thinking he had any difficulties with memory or cognition. At end of evaluation, DIESEL MACHINIST spent time providing pt education regarding risk of aspiration if diet modification and compensatory strategies were not followed. DIESEL MACHINIST explicitly stated that he risked developing further infection in his lungs without modifications for dysphagia. Pt expressed that he understood DIESEL MACHINIST recommendations , but that he swallows fine and does not believe that food or liquid is being aspirated into his airway. Reported by Patient Other Symptoms Choking Comment Pt has suction on at bedside. He uses suction as independently. Very shaky hands again today. Current Diet Pureed,[place] thick liquids Baseline Feeding Method Independent in self-feeding Objective Assessment Mental Status Uncooperative Oral Integrity WFL Dentition Within normal limits Lip Function Mild impairment Observation of Lips at Rest Symmetrical Observations of Tongue at Rest Involuntary movement(s) Tongue Protrusion Reduced range of motion, Reduced strength Tongue Retraction Reduced strength Tongue Lateralization Reduced range of motion, Incoordination Food and Liquid Trials Position During Assessment Upright (90 degrees) Liquids Trialed Ice chips,[place] Solids Trialed Puree Administration Type Tea spoon,Controlled cup sip, Straw,Self-feeding,Needs some assistance Oral Impairment Moderately impaired Oral Phase Comments Prolonged mastication and oral transit time for puree solids . Pt requested additional bites puree before clearing current bite, indicating he is not independent in rate modification. Pt refused trial of regular solid (ave cracker). Pharyngeal Impairment Moderately impaired Pharyngeal Phase Comments Pt tolerated ice chips without cough. Pt continues to demonstrate delayed swallow response. Trials nectar thick liquids via cup sip resulted in delayed wet cough with pt self-suctioning, though trials nectar thick via teaspoon did not result in overt s/s aspiration, indicating pt is unable to independently regulate volume of liquid bolus. Pt became agitated with DIESEL MACHINIST strategies to regulate bolus size and rate modification. Fatigue/Endurance Mild fatigue Findings Swallowing Function Pharyngeal phase dysphagia Severity of Swallow Impairment Moderately impaired Contributing Factors to Swallow Reduced oral strength/ Impairment coordination/sensation, Impaired oral-pharyngeal transport,Delayed swallow initiation,Excessive pharyngeal residue Prognosis Poor Based on Comorbidities,Duration of symptoms/severity,Other ( comment) Comment Pt agitated with DIESEL MACHINIST recommendations and indicated he would refuse further DIESEL MACHINIST re -evaluation. Impact on Safety and Functioning Risk for aspiration,Risk for inadequate nutrition/hydration Recommendations Instrumental Assessment No Recommended Solids Puree Recommended Liquids [place] Other Recommendations Teaspoon-size sips nectar thick liquids. D/C ST at this time due to pt noncompliance with compensatory strategies, skilled interventions, and intake evaluation. Safety Precautions/Swallowing 1 to 1 distant supervision, Recommendations Feed only when alert,Remain upright (90 degrees) during all oral intake,Needs verbal cues to use recommended strategies,Small bites and sips when eating,Slow rate; swallow between bites Medication Recommendations As Tolerated Discharge Recommendations long term facility Referrals Recommended Referrals Psychiatry/Behavioral Health Education Patient/Caregiver Education Patient expressed understanding of evaluation but refused treatment
[2022-05-08] MEDS: cefTRIAXone 1,000 MG in SODIUM CHLORIDE 0.9% 100 ML 200 MG IV (20:12)
[2022-05-08] MEDS: TRAZODONE 50 MG TABLET PO (20:13)
--- NOTE | 2022-05-09 04:14 | PC.NURSE ---
Pt is AxOx3-4, calm and cooperative. VSS, pt denies pain. BG-297 at bedtime and pt recieved 5 units of Lispro for that. Pt is urinating in his urinal. Pt slept well. Tele shows multi focal PVCs with SR. Continue droplet precaution. Pt is now on 2L and sats mid 90s. No other changes. Continue monitor.
[2022-05-09] MEDS: LEVOTHYROXINE 75 MCG TABLET PO (05:04)
[2022-05-09] MEDS: HEPARIN 5,000 UNIT/ML VIAL 5000 UNIT SUBCUT ×3 (05:04→21:19)
[2022-05-09 05:40] LABS: Hematocrit 38.9 % (41-53); Hemoglobin 13.1 g/dL (13.5-17.5); Mean Corpuscular HGB Conc 33.6 % (30-36); Mean Corpuscular Hemoglobin 28.9 PG (26-34); Mean Corpuscular Volume 85.9 fL (80-100); Platelet Count 286 X10^3/uL (150-400); Red Blood Cell Count 4.53 X10^6/uL (4.5-5.9); Red Cell Distribution Width 13.6 % (11.6-14.8)
[2022-05-09 05:42] LABS: Add Manual Diff / Slide Review YES
[2022-05-09 05:57] LABS: BUN Creatinine Ratio 27.5 (6-22); Blood Urea Nitrogen 49 mg/dL (9-20); Carbon Dioxide 24 mmol/L (22-32); Chloride 109 mmol/L (98-107); Estimated Glomerular Filt Rate 41 mL/min (>60); Glucose 65 mg/dL (80-110); HEMOLYSIS 17 (0-50); Sodium 141 mmol/L (137-145)
[2022-05-09 06:00] VITALS: BP 118/57; PULSE 70; RESP 18; TEMP 36.4; O2SAT 93
[2022-05-09 06:26] LABS: Neutrophils Absolute Manual 11480 /uL (3000-5900); Total Cells Counted 100
[2022-05-09 06:27] LABS: RBC Morphology Normal Morphology
[2022-05-09 08:15] VITALS: BP 123/65; PULSE 70; RESP 21; TEMP 36.6; O2SAT 95
[2022-05-09] MEDS: ACETAMINOPHEN 325 MG TABLET 650 MG PO (08:17)
[2022-05-09] MEDS: METOPROLOL IR 25 MG TABLET 12.5 MG PO ×2 (08:17→21:16)
[2022-05-09] MEDS: BARICITINIB 2 MG TABLET 1 MG PO (08:18)
[2022-05-09] MEDS: CALCIUM CARBONATE 500 MG TAB PO ×2 (08:18→21:15)
[2022-05-09] MEDS: DEXAMETHASONE 10 MG/ML VIAL 6 MG IV (08:19)
[2022-05-09] MEDS: SERTRALINE 50 MG TABLET PO (08:19)
[2022-05-09] MEDS: PANTOPRAZOLE 40 MG VIAL IV (08:21)
[2022-05-09] MEDS: SODIUM CHLORIDE 0.9% FLUSH 10 ML IV ×2 (08:22→21:17)
[2022-05-09] MEDS: INSULIN NPH 100 UNIT/ML VIAL 15 UNIT SUBCUT ×2 (08:23→17:48)
--- NOTE | 2022-05-09 09:10 | P.PN_ITS ---
Exam Vital Signs (past 8 hours): - 05/09/22 06:00 Temperature 97.5 F L Pulse Rate 70 Respiratory Rate 18 Blood Pressure 118/57 L Pulse Oximetry 93 Oxygen Flow Rate 2 Fraction of Inspired Oxygen 0.77 Oxygen Delivery Method Nasal Cannula Oxygen Flow Rate 2 Narrative Exam Narrative: GEN: alert, diaphoretic and ill appearing male, no acute distress. HEENT: moist mucous membranes, PERRL NECK: trachea midline, no JVD PULM: coarse breath sounds improving, no wheezes CV: regular rate and regular rhythm, no murmurs ABD: soft, nontender, nondistended, no organomegaly EXT: warm and well perfused with no edema NEURO: awake, alert, oriented, no focal deficits noted Objective Labs Result Diagrams: 05/09/22 05:15 05/09/22 05:15 Labs: Laboratory Results - last 24 hr 05/04/22 05/08/22 05/09/22 15:41 09:10 05:15 WBC 14.0 H RBC 4.53 Hgb 13.1 L Hct 38.9 L MCV 85.9 MCH 28.9 MCHC 33.6 RDW 13.6 Plt Count 286 Neut % (Auto) Not Reportable Lymph % (Auto) Not Reportable [place] % (Auto) Not Reportable Eos % (Auto) Not Reportable Baso % (Auto) Not Reportable Lymph # (Auto) Not Reportable [place] # (Auto) Not Reportable Baso # (Auto) Not Reportable Total Counted 100 Seg Neutrophils % 74.0 H Band Neutrophils % 8.0 H Lymphocytes % (Manual) 10.0 L Monocytes % (Manual) 8.0 Neutrophils # (Manual) 04966 H RBC Morphology Normal morphology VBG pH Cancelled VBG pCO2 Cancelled VBG pO2 Cancelled VBG HCO3 Cancelled VBG Total CO2 Cancelled VBG O2 Saturation Cancelled VBG Base Excess Cancelled Sodium 139 Potassium 4.1 Chloride 107 Carbon Dioxide 21 L BUN 51 H Creatinine 1.88 H Estimated GFR 38 L BUN/Creatinine Ratio 27.1 H Glucose 245 H Calcium 7.4 L 05/09/22 05:15 WBC RBC Hgb Hct MCV MCH MCHC RDW Plt Count Neut % (Auto) Lymph % (Auto) [place] % (Auto) Eos % (Auto) Baso % (Auto) Lymph # (Auto) [place] # (Auto) Baso # (Auto) Total Counted Seg Neutrophils % Band Neutrophils % Lymphocytes % (Manual) Monocytes % (Manual) Neutrophils # (Manual) RBC Morphology VBG pH VBG pCO2 VBG pO2 VBG HCO3 VBG Total CO2 VBG O2 Saturation VBG Base Excess Sodium 141 Potassium 4.0 Chloride 109 H Carbon Dioxide 24 BUN 49 H Creatinine 1.78 H Estimated GFR 41 L BUN/Creatinine Ratio 27.5 H Glucose 65 L D Calcium 8.0 L PFSH Social History household members: none Smoking Status: Never smoker Assessment & Plan Assessment & Plan narrative: 1. Sepsis with Acute hypoxemic respiratory failure, acute toxic/metabolic encephalopathy, secondary to COVID pneumonia with possible superimposed bacterial pneumonia. Sepsis now resolved. -patient may be undervaccinated against covid, reports not getting a booster in a while -has risk factors for severe disease with diabetes and CAD -COVID positive on admission -weaned off HFNC to 4L NC -CTA negative for PE -started on dexamethasone, baricitinib, remdesivir, will continue. -narrowed meropenem to rocephin 1g daily -encephalopathy now improving -passed speech eval and able to eat, transitioned insulin drip to NPH and SSI -PT/OT eval 2. Persistent sinus tachycardia, improving -sinus tachycardia on EKG -suspect secondary to severity of illness and was dry -resumed home metoprolol -CTA negative for PE 3. Type 2 Diabetes with DKA vs starvation ketosis, improving -hold oral medications, patient has been NPO for several days due to dysphagia -started on insulin infusion after worsening acidosis with bicarb of 7, glucose was in the 200s but he is on an SGLT-2 at home. Venous access was difficult, now with PICC line in place. -he had no diet for a few days secondary to dysphagia, given positive ketones despite insulin drip for over 24 hours suspected component of starvation ketosis -patient now eating as gap closed and transitioning to SQ NPH and high dose SSI -A1c 11%, diabetes education consulted 4. Hypothyroidism -continue synthroid 5. CAD s/p CABG -continue statin 6. ELINA, improving -suspect secondary to hypovolemia, now downtrending Cr after fluids -monitor CODE: Full Proxy: Sister Chiara Huizar [phone], other contact friend Buster Hoppercorie [phone] Dispo: Pending therapy eval for home vs SNF. Suspect he'll be ready for dc in 2- 3 days. Time Spent With Patient Critical Care time: I spent a total of [] minutes of critical care time on this patient's care today; this time is exclusive of procedural time. Quality VTE Deep Vein Thrombosis/Pulmonary Embolism Present on Admission: No
[2022-05-09 10:57] VITALS: O2SAT 97
--- NOTE | 2022-05-09 11:15 | PT.IPTN ---
Current Diagnoses Hypothyroidism, unspecified (05/03/22) Type 2 diabetes mellitus with ketoacidosis without coma (05/03/22) Type 2 diabetes mellitus without complications (05/03/22) Atherosclerotic heart disease of [place] coronary artery without angina pectoris (05/03/22) Acute respiratory failure with hypoxia (05/03/22) Acute kidney failure, unspecified (05/03/22) COVID-19 (05/03/22) Physical Therapy Treatment Note M2 PT-IP Current Condition Start: 05/08/22 08:46 Freq: NEEDED Status: Active Protocol: Document 05/09/22 10:55 SP (Rec: 05/09/22 13:28 SP [id number]) Physical Therapy Current Condition Current Condition Evaluation Date 05/08/22 Treatment Diagnosis sepsis, COVID PNA; encephalopathy; impaired mobility and gait Onset Date 05/03/22 M3 PT-IP Subjective Start: 05/08/22 08:46 Freq: NEEDED Status: Active Protocol: Document 05/09/22 10:55 SP (Rec: 05/09/22 13:28 SP [id number]) Subjective Physical Therapy Visit Type Type Treatment Note Visit Start Time 10:55 Visit Stop Time 11:15 Total Visit Minutes 20 Notes Vitals taken: -supine BP 121/61, HR 101, SaO2 99% on 2L -SaO2 maintained 96-98% on RA throughout mobility for assessment return [place] without O2 as did not use prior to admission. Notified nursing pt has nasal on but no supplimental O2 turned on. Number of MOUNTING MACHINE OPERATOR Visits 1 Physical Therapy Visit Comments Patient Comments Pt agreeable to updated mobility assessment after much encouragement to allow awareness for return to [place]. Patient Goals I want to go back home. Don't tell anyone but my girlfriend will be there in 5 days and she is taking me out of there. I have money and we are going to find a new place to live. Therapy Pain Assessment Pain Present Pain Present Denied Pain M4 PT-IP Mobility and Gait Start: 05/08/22 08:46 Freq: NEEDED Status: Active Protocol: Document 05/09/22 10:55 SP (Rec: 05/09/22 13:28 SP [id number]) PT-Bed Mobility Assessment Supine to Sit Supine to Sit Minimal Assistance,1 Person Assistance Scooting Scooting to Edge of Bed Standby Assistance PT-Transfer Assessment Sit to and From Stand Sit to and from Stand Contact Guard Assistance, Minimal Assistance,Use of Upper Extremities Equipment Transfer Assistive Device Gait Belt,Front Wheeled Walker Orthotic/Prosthetic Devices or Brace: No Transfers Transfer Destination Chair Transfer Technique Stand Step Pivot Transfer Ability Level of Assist Contact Guard Assistance, Minimal Assistance,Use of Upper Extremities Comments Mobility Comments Pt was elevated in bed when arrived. MOUNTING MACHINE OPERATOR provided much encouragement to participate with therapy for documentation to allow [place] updates of back to PLOF or needing assist. Pt agreeable after education given. HOB flat Chanda supine> sit, pulled from therapist and LUE and RUE push on bed. scoot EOB SBA. Sit>stand cues redirected BUE off FWW and push from bed. Stand pivot transfer bed>chair 3 ft CGA little trunk sways but no LOB using FWW but Min A for slow descent due to quick descent ( BUEs on FWW), no carryover with cues for proper hand placement. Pt declined further gait in room for endurance assessment. Pt's SaO2 maintained mid/high 90s with no supplimental O2 throughout tx. Pt little impulsive during transfer cues for proper hand placement verbalized understanding, MOUNTING MACHINE OPERATOR managed medical lines/tubing. Pt is ok to return home with SNF vs available due to assist required for bed mobility and slow descent to sit in chair, poor carryover proper hand placement. Pt would benefit from skilled services for increased stability balance and safety mobility techniques but not sure pt would agree to. Gait Assessment Comments Gait Comments CGA stand step pivot trasnfer w/ FWW Min A slow descent sit. Declined further gait I just want to go home, we have done enough. Stair Climbing Assessment Comments Stair Climbing Comments no stairs need to assess, has elevator. PT-Balance Assessment Sitting Balance and Reactions Static Sitting Balance Ability Good Dynamic Sitting Balance Ability Fair Standing Balance and Reactions Static Standing Balance Ability Good Dynamic Standing Balance Ability Fair Device Used FWW M5 PT-IP Objective Assessments Start: 05/08/22 08:46 Freq: NEEDED Status: Active Protocol: Document 05/08/22 11:35 AW (Rec: 05/08/22 12:07 AW [id number]) Orientation Orientation/Cognition Level of Alertness Confusional State Orientation Name,Place Safety Awareness Decreased Safety Awareness Memory Description Short Term Impaired Gross Range of Motion Lower Extremity ROM Assessment Within Functional Limits Strength Lower Extremity Strength Assessment Bilaterally Impaired Hip 4-/5 Knee 4+/5 ext; 4-/5 flex Ankle 4/5 DF; PF not tested Sensation Assessment Sensation Gross Sensation WNL Muscle Tone Muscle Tone WNL Yes M6 PT-IP Treatment Start: 05/08/22 08:46 Freq: NEEDED Status: Active Protocol: Document 05/08/22 11:35 AW (Rec: 05/08/22 12:07 AW [id number]) Physical Therapy Treatment Education Education Provided Safety M7 PT-IP Assessment and Plan Start: 05/08/22 08:46 Freq: NEEDED Status: Active Protocol: Document 05/09/22 10:55 SP (Rec: 05/09/22 13:28 SP [id number]) PT Summary Assessment and Plan Potential Rehabilitation Potential Fair Status of Condition at Evaluation Evolving Summary Impairments Strength,Balance,Cognition,Bed Mobility,Transfers,Gait, Activity Tolerance Progress Towards Goals Progressing Toward Goals,Slow Progress due to Activity Tolerance Assessment Summary Required Min A for bed mob ( HOB flat as has at home), CGA transferw/ FWW. Min A slow sit dueto quick descent due to lack of hand placement on chair arms, verbalized understanding education reach back slow sit. Pt had call light and all needs in reach with chair alarm donned, warm blankets before left. Recommending SNF vs 24/7 available due to impulsive mobility with FWW, CG/ Min A, needs to be I w/ FWW to safely return to [facility], unless they can provide him this safety support. Goals Bed Mobility Goal Standby Assistance Transfer Goal Standby Assistance,Front Wheeled Walker Gait Goal Standby Assistance,Front Wheel Walker Gait Distance 75 Other Goals - progress gait and transfers to IND with FWW Days to Meet Goals 8 Frequency of Treatment Frequency Of Treatment Once a Day Treatment Plan Physical Therapy Treatment Plan Bed Mobility Training,Transfer Training,Gait Training, Therapeutic Exercise,Balance Retraining,Discharge Planning, Hot or Cold Pack,Neuromuscular Re-ed Other Recommendations and Next Treatment bed mob, transfers and gait w/ Focus FWW, ther ex for LE strength, balance toward I with FWW PLOF. Precautions Other Precautions falls risk; COVID precautions Recommendations To Nursing Amount of Assist Needed 1 Person Assist Discharge Recommendations PT Discharge Recommendations Home with 24/7 Assist Available,Home Health,SNF Rehab,Home vs SNF Transportation Needs at Discharge Private Vehicle,Wheelchair/ Cabulance
[2022-05-09] MEDS: INSULIN LISPRO 100 UNIT/ML 3ML VIAL SUBCUT ×3 (12:21→21:18)
--- NOTE | 2022-05-09 14:06 | CM.DPNOTE ---
Discharge Planning Note: 71 year old single male here since 05/03/22 with Covid pneumonia. He has improved but is still weakened. He has been evaluated by PT/OT who recommend Home with assistance vs SNF. He has been living independently at [facility] prior to admit. He is independent at baseline and drives. Patient's sister Chiara Huizar called and LM. Tried to return call but no answer, LM. He has been insisting upon returning to his apartment, Dr Michael has put in discharge orders. Spoke with patient's nurse Donya about patient. Spoke with [facility]UST[facility] who would be willing to come tomorrow to assess him and sign an assisted living contract. Spoke with patient by phone in his room and asked if he wouldn't consider staying another night and he absolutely refuses. This DCP let him know that they will not be able to assist him due to no contract in place and if anything happens they would call an ambulance. Patient states he is leaving this afternoon when his friend can pick him up. Alerted Anusha Richardson of this fact. Tati Buchanan RN/DCP
--- NOTE | 2022-05-09 15:02 | CM.DPNOTE ---
Discharge Planning Note: This DCP has ordered [facility], with the caveat that he must agree to not drive if he accepts their services, to maintain a status of homebound. They will call him first to evaluate. Tati Buchanan RN/DCP
[2022-05-09 15:05] VITALS: BP 124/57; PULSE 70; TEMP 36.8; O2SAT 95
--- NOTE | 2022-05-09 17:37 | P.PN_ITS ---
Subjective Subjective Date Patient Seen: 05/09/22 Interval history: Patient agitated and wants to go home today. O2 weaned off. Exam Vital Signs (past 8 hours): - 05/09/22 10:57 05/09/22 15:05 Temperature 98.3 F Pulse Rate 70 Blood Pressure 124/57 L Pulse Oximetry 97 95 Oxygen Delivery Method Nasal Cannula Oxygen Flow Rate 2 0 Fraction of Inspired Oxygen 0.77 Oxygen Delivery Method Nasal Cannula Oxygen Flow Rate 0 Narrative Exam Narrative: GEN: alert, diaphoretic and ill appearing male, no acute distress. HEENT: moist mucous membranes, PERRL NECK: trachea midline, no JVD PULM: coarse breath sounds improving, no wheezes CV: regular rate and regular rhythm, no murmurs ABD: soft, nontender, nondistended, no organomegaly EXT: warm and well perfused with no edema NEURO: awake, alert, oriented, no focal deficits noted Objective Labs Result Diagrams: 05/09/22 05:15 05/09/22 05:15 Labs: Laboratory Results - last 24 hr 05/09/22 05/09/22 05:15 05:15 WBC 14.0 H RBC 4.53 Hgb 13.1 L Hct 38.9 L MCV 85.9 MCH 28.9 MCHC 33.6 RDW 13.6 Plt Count 286 Neut % (Auto) Not Reportable Lymph % (Auto) Not Reportable [place] % (Auto) Not Reportable Eos % (Auto) Not Reportable Baso % (Auto) Not Reportable Lymph # (Auto) Not Reportable [place] # (Auto) Not Reportable Baso # (Auto) Not Reportable Total Counted 100 Seg Neutrophils % 74.0 H Band Neutrophils % 8.0 H Lymphocytes % (Manual) 10.0 L Monocytes % (Manual) 8.0 Neutrophils # (Manual) 66628 H RBC Morphology Normal morphology Sodium 141 Potassium 4.0 Chloride 109 H Carbon Dioxide 24 BUN 49 H Creatinine 1.78 H Estimated GFR 41 L BUN/Creatinine Ratio 27.5 H Glucose 65 L D Calcium 8.0 L PFSH Social History household members: none Smoking Status: Never smoker Assessment & Plan Assessment & Plan narrative: 1. Sepsis with Acute hypoxemic respiratory failure, acute toxic/metabolic encephalopathy, secondary to COVID pneumonia with possible superimposed bacterial pneumonia. Sepsis now resolved. -patient may be undervaccinated against covid, reports not getting a booster in a while -has risk factors for severe disease with diabetes and CAD -COVID positive on admission -weaned off HFNC to 4L NC -CTA negative for PE -started on dexamethasone, baricitinib, remdesivir, will continue. -narrowed meropenem to rocephin 1g daily, finished 5 day course -encephalopathy now improving -passed speech eval and able to eat, transitioned insulin drip to NPH and SSI -PT/OT eval rec SNF, however patient refused and wants to return to his residential home -pending eval by assisted living before discharging -resp failure resolved and able to wean off O2 2. Persistent sinus tachycardia, resolved -sinus tachycardia on EKG -suspect secondary to severity of illness and was dry -resumed home metoprolol -CTA negative for PE 3. Type 2 Diabetes with DKA vs starvation ketosis, improving -hold oral medications, patient has been NPO for several days due to dysphagia -started on insulin infusion after worsening acidosis with bicarb of 7, glucose was in the 200s but he is on an SGLT-2 at home. Venous access was difficult, now with PICC line in place. -he had no diet for a few days secondary to dysphagia, given positive ketones despite insulin drip for over 24 hours suspected component of starvation ketosis -patient now eating as gap closed and transitioning to SQ NPH and high dose SSI -A1c 11%, diabetes education consulted and provided education 4. Hypothyroidism -continue synthroid 5. CAD s/p CABG -continue statin 6. ELINA, improving -suspect secondary to hypovolemia, now downtrending Cr after fluids -monitor CODE: Full Proxy: Sister Chiara Huizar [phone], other contact friend Buster Parson [phone] Dispo: Pending assisted living evaluation before returning home with HH. Time Spent With Patient Critical Care time: I spent a total of [] minutes of critical care time on this patient's care today; this time is exclusive of procedural time. Quality VTE Deep Vein Thrombosis/Pulmonary Embolism Present on Admission: No
--- NOTE | 2022-05-09 18:36 | PC.NURSE ---
Addendum entered by Fernanda Brown R.N. 05/09/22 18:54: 17:12 Followed up with pt to see if his ride is on the way. Pt states, friend Buster and sister said that [facility] will not let me come home because I am COVID positive and they have to assess me tomorrow to return home. Informed pt that Dr. Michael has order in place for d/c and he can go today, per Nakia, case management, ,faculty from [place] can come 05/09/2022 to assess pt for assisted living. Pt states, I do not want assisted living, I will stay tonight and talk to the people from [facility] tomorrow. Original Note: 14:45 Spoke with pt and informed that Dr. Michael has cleared him for d/c. Pt states, wants to go home today and does not want assisted living, I do not want anyone in my home and do not need them. Pt states, my friend Buster will pick me up between 3-5 p.m. Pt dressed and ready for d/c, tele removed. Discussed d/c instructions and provided education about diabetic ketoacidosis, dexamethasone, COVID 19, and fall prevention and answered questions. Per Dr. Michael, ok to leave PICC line until before pt is being picked up by his friend.
[2022-05-09 20:00] VITALS: BP 121/58; PULSE 72; RESP 19; TEMP 36.4; O2SAT 99
[2022-05-09] MEDS: cefTRIAXone 1,000 MG in SODIUM CHLORIDE 0.9% 100 ML 200 MG IV (21:16)
[2022-05-09] MEDS: TRAZODONE 50 MG TABLET PO (21:21)
[2022-05-09 21:46] VITALS: O2SAT 99
[2022-05-10] VITALS: BP 106/52; PULSE 60; RESP 19; TEMP 36.1; O2SAT 95
[2022-05-10] MEDS: INSULIN NPH 100 UNIT/ML VIAL 15 UNIT SUBCUT (01:09)
[2022-05-10 04:00] VITALS: BP 132/60; PULSE 72; RESP 17; TEMP 36.1; O2SAT 93
[2022-05-10 06:00] VITALS: RESP 18
[2022-05-10] MEDS: LEVOTHYROXINE 75 MCG TABLET PO (06:03)
[2022-05-10 08:30] VITALS: BP 138/64; PULSE 78; RESP 16; TEMP 36.4; O2SAT 92
[2022-05-10] MEDS: DEXAMETHASONE 10 MG/ML VIAL 6 MG IV (09:09)
[2022-05-10] MEDS: BARICITINIB 2 MG TABLET PO (09:09)
[2022-05-10] MEDS: METOPROLOL IR 25 MG TABLET 12.5 MG PO (09:10)
[2022-05-10] MEDS: SERTRALINE 50 MG TABLET PO (09:10)
[2022-05-10] MEDS: INSULIN GLARGINE 100 UNIT/ML 3ML PEN 30 UNIT SUBCUT (09:10)
[2022-05-10] MEDS: PANTOPRAZOLE 40 MG VIAL IV (09:10)
[2022-05-10] MEDS: SODIUM CHLORIDE 0.9% FLUSH 10 ML IV (09:12)
[2022-05-10] MEDS: CALCIUM CARBONATE 500 MG TAB PO (09:15)
[2022-05-10 11:30] VITALS: BP 127/62; PULSE 66; RESP 19; O2SAT 92
--- NOTE | 2022-05-10 13:37 | CM.DPNOTE ---
Discharge Planning Note: Patient met with ARLETH Richardson of [facility] this afternoon who came and assessed him. He is insistent on returning to his independent living apartment there and is not necessarily wanting assisted living services which they discussed. Patient is unrealistic in managing his own care and will need help but he is resistant. He is choosing to return to his apartment. Compliance with medications and medical regime questionable. His sister is out of the country. He has a few friends and he is hopeful his [place] girlfriend will be joining him soon. Plan: Has discharge orders, discharge home. Does not qualify for Home Health due to he is not willing to stop driving and must be homebound. Tati Buchanan RN/CHAROP
--- NOTE | 2022-05-10 15:01 | PM.DS.1 ---
History of Present Illness History of Present Illness Date Patient Seen: 05/10/22 Time Patient Seen: 12:00 Chief complaint: GLF Narrative: Mr. Riojas is a 71M with PMH spina bifida, DM, CAD s/p CABG, hypothyroidism who presents to the hospital for a weakness and a fall. He started feeling ill within the last day. He noted primarily sore throat. Initially was denying chest pain. He came to the hospital via EMS primarily for the weakness. He was COVID positive. In the ED he developed worsening shortness of breath, cough, and hypoxemia. He was started on oxygen. He was afebrile, he was tachycardic and tachypneic. Labs notable for WBC 9.7, hgb 14.2, plts 178. Creatinine 0.99. Troponin 0.022. EKG showed sinus tachycardia. COVID positive. Chest xray showed no acute process. CTA was negative for PE but showed multifocal bilateral ground glass opacities and fluid filled lower lobe bronchi consistent with mucous plugging. He was ordered for antibiotics, steroids, and remdesivir and admitted for further treatment. Upon arrival to the floor he was in quite significant respiratory distress. His oxygen saturations remained in the 80s on nasal cannula, and therefore he was started on heated high flow and transferred to the ICU. Discharge Providers Provider Date of admission: 05/03/22 17:06 Discharge Date: 05/10/22 Primary care physician: Doctor Janay MD Consults: 05/03/22 19:39 Consult to [employer] Routine Comment: 05/03/22 20:47 Consult to Tele-anesthesia assistant Routine Comment: Consulting Provider: Rachel Tele-intensivists Reason for consultation: Assistant Branch Manager services Has provider been notified: Yes 05/05/22 09:23 Consult to Speech Therapy Evaluate & Treat Comment: Physician Instructions: Evaluate and treat 05/08/22 08:32 Consult to Dietitian, Adult Routine Comment: Reason For Exam: A1c 11% Consult to Occupational Therapy Evaluate & Treat Comment: Physician Instructions: Evaluate and treat Consult to Physical Therapy Evaluate & Treat Comment: Physician Instructions: Evaluate and Treat 05/08/22 12:46 Consult to Speech Therapy Evaluate & Treat Comment: Dysphagia and cognitive eval Physician Instructions: Evaluate and treat Discharge provider: Ajith Michael DO Summary Hospital Course Discharge Diagnosis: 1. Sepsis with Acute hypoxemic respiratory failure, acute toxic/metabolic encephalopathy, secondary to COVID pneumonia with possible superimposed bacterial pneumonia. Sepsis now resolved. -patient may be undervaccinated against covid, reports not getting a booster in a while -has risk factors for severe disease with diabetes and CAD -COVID positive on admission -weaned off HFNC to 4L NC -CTA negative for PE -finished course of dexamethasone, baricitinib, remdesivir, will continue. -narrowed meropenem to rocephin 1g daily, finished 5 day course -encephalopathy now improving -passed speech eval and able to eat, transitioned insulin drip to NPH and SSI -PT/OT eval rec SNF, however patient refused and wants to return to his care home home -pending eval by assisted living before discharging -resp failure resolved and able to wean off O2 2. Persistent sinus tachycardia, resolved -sinus tachycardia on EKG -suspect secondary to severity of illness and was dry -resumed home metoprolol -CTA negative for PE 3. Type 2 Diabetes with DKA vs starvation ketosis, improving -hold oral medications, patient was NPO for several days due to dysphagia -started on insulin infusion after worsening acidosis with bicarb of 7, glucose was in the 200s but he is on an SGLT-2 at home. Venous access was difficult, now with PICC line in place. -he had no diet for a few days secondary to dysphagia, given positive ketones despite insulin drip for over 24 hours suspected component of starvation ketosis -patient now eating as gap closed and transitioning to SQ NPH and high dose SSI -A1c 11%, diabetes education consulted and provided education 4. Hypothyroidism -continue synthroid 5. CAD s/p CABG -continue statin 6. ELINA, improving -suspect secondary to hypovolemia, now downtrending Cr after fluids -monitor Hospital Course: Admitted for sepsis secondary to COVID pneumonia with suspected superimposed bacterial pneumonia. Patient required ICU level care due to initially being in euglycemic DKA requiring insulin drip as well as high flow nasal cannula for several days at up to 45L and 80% . Treated with CAP antibiotics, remdesivir and baricitinib for their full courses. Able to wean to 4L NC then to room air. Patient weaned off insulin drip to subq, but was delayed by presence of prolonged gap acidosis thought to be also due to starvation ketosis as patient had encephalopathy due to sepsis resulting in dysphagia. Eventually this cleared as well and was able to eat without issues and acidosis also improved. PT/OT arleneal recommended home with assist, however patient lives alone and he refused SNF. Home health setup. Sister was quite concerned that he would be able to care for himself, however patient had capacity and chose to return home despite this. His jardiance and farxiga was discontinued on discharge due to euglycemic DKA. Time Spent with Patient Time spent: Greater than 30 minutes Exam Vital Signs (past 8 hours): - 05/09/22 08:15 05/09/22 07:58 05/09/22 08:15 Temperature 97.8 F Pulse Rate 70 Respiratory Rate 21 Blood Pressure 123/65 Pulse Oximetry 95 95 Oxygen Delivery Method Nasal Cannula Nasal Cannula Oxygen Flow Rate 2 2 05/09/22 10:57 Temperature Pulse Rate Respiratory Rate Blood Pressure Pulse Oximetry 97 Oxygen Delivery Method Nasal Cannula Oxygen Flow Rate 2 Fraction of Inspired Oxygen 0.77 Oxygen Delivery Method Nasal Cannula Oxygen Flow Rate 2 Narrative Exam Narrative: GEN: alert, no acute distress. HEENT: moist mucous membranes, PERRL NECK: trachea midline, no JVD PULM: coarse breath sounds improving, no wheezes CV: regular rate and regular rhythm, no murmurs ABD: soft, nontender, nondistended, no organomegaly EXT: warm and well perfused with no edema NEURO: awake, alert, oriented, no focal deficits noted Objective Labs Result Diagrams: 05/09/22 05:15 05/09/22 05:15 Labs: Laboratory Results - last 24 hr 05/09/22 05/09/22 05:15 05:15 WBC 14.0 H RBC 4.53 Hgb 13.1 L Hct 38.9 L MCV 85.9 MCH 28.9 MCHC 33.6 RDW 13.6 Plt Count 286 Neut % (Auto) Not Reportable Lymph % (Auto) Not Reportable [place] % (Auto) Not Reportable Eos % (Auto) Not Reportable Baso % (Auto) Not Reportable Lymph # (Auto) Not Reportable [place] # (Auto) Not Reportable Baso # (Auto) Not Reportable Total Counted 100 Seg Neutrophils % 74.0 H Band Neutrophils % 8.0 H Lymphocytes % (Manual) 10.0 L Monocytes % (Manual) 8.0 Neutrophils # (Manual) 20716 H RBC Morphology Normal morphology Sodium 141 Potassium 4.0 Chloride 109 H Carbon Dioxide 24 BUN 49 H Creatinine 1.78 H Estimated GFR 41 L BUN/Creatinine Ratio 27.5 H Glucose 65 L D Calcium 8.0 L PFS Social History household members: none Smoking Status: Never smoker Discharge Plan Discharge Plan Patient Disposition: Home Provider Discharge Comment: You were admitted with COVID pneumonia and improved on COVID treatments and antibiotics. You were able to wean off of oxygen. You will need to finish 4 more days of oral steroids which I've sent to your pharmacy. Discharge orders & Medications Prescriptions: Continued metformin 1,000 mg Tablet 1,000 mg PO BID citalopram 10 mg tablet 5 mg PO DAILY simvastatin 10 mg tablet 10 mg PO BEDTIME Label Comments: TAKE ONE TABLET BY MOUTH EVERY EVENING glimepiride 1 mg tablet 1 mg PO DAILY Label Comments: TAKE ONE TABLET BY MOUTH DAILY levothyroxine 75 mcg tablet 75 mcg PO DAILY Label Comments: TAKE ONE TABLET BY MOUTH DAILY metoprolol tartrate 25 mg tablet 12.5 mg PO BID Label Comments: TAKE ONE-HALF TABLET BY MOUTH TWICE DAILY trazodone 50 mg tablet 50 mg PO DAILY sertraline 50 mg Tablet 50 mg PO DAILY Discontinued Farxiga 10 mg tablet 10 mg PO DAILY Jardiance 25 mg Tablet 25 mg PO DAILY Follow up/Referrals: Doctor Gustafson MD [Primary Care Provider] - Visit Report/Discharge Packet Instructions: How to Prevent Falls, DI for Diabetic Ketoacidosis, Dexamethasone, DI for COVID-19 (Suspected or Confirmed ), Post-COVID Syndrome Discharge Data Primary Care Provider: Doctor Janay Quality VTE Deep Vein Thrombosis/Pulmonary Embolism Present on Admission: No
--- NOTE | 2022-05-10 16:35 | PT-IP ANOTE ---
Pt refused in afternoon
--- NOTE | 2022-05-10 17:46 | PC.NURSE ---
Discharge Note Patient A&O, VSS, RA, no complaints of pain or discomfort. Discharge packet reviewed with patient, all questions concerns addressed. Patient agreeable to discharge plan. Patient able to dress self with minimal assist. All belongings packed and given to patient. Patient taken down via wheelchair to taxi. Upon discharge it was discovered that patient had left facility with PICC line in place. Plans were made by the floor coordinator for removal by the facility RN tomorrow morning.
== END 2022-05-10 17:00 | disposition home or self-care (01) | DRG 177 ==
LOC: ED 13:52 → AC 17:27 → ICU 05-04 11:17 → AC 05-04 12:13
PROVIDERS: Emergency Medicine; Internal Medicine; Internal Medicine Critical Care Medicine; Internal Medicine Pulmonary Disease; Nurse Practitioner Family; Student in an Organized Health Care Education/Training Program; Admitting Provider Family Medicine; Emergency Provider Emergency Medicine; Referring Provider Emergency Medicine; Visit Provider Family Medicine
DX: U07.1 COVID-19 (principal); A41.9 Sepsis, unspecified organism; E11.10 Type 2 diabetes mellitus with ketoacidosis without coma; J96.01 Acute respiratory failure with hypoxia; J12.82 Pneumonia due to coronavirus disease 2019; G93.41 Metabolic encephalopathy; J15.9 Unspecified bacterial pneumonia; R65.20 Severe sepsis without septic shock; A08.39 Other viral enteritis; N17.9 Acute kidney failure, unspecified; E03.9 Hypothyroidism, unspecified; I25.10 Atherosclerotic heart disease of native coronary artery without angina pectoris; R00.0 Tachycardia, unspecified; Q05.9 Spina bifida, unspecified; Z79.84 Long term (current) use of oral hypoglycemic drugs; Z95.1 Presence of aortocoronary bypass graft
CPT/HCPCS: 0241U; 36415; 36569; 36592; 36600; 71045; 71275; 80048; 80053; 81003; 81015; 82009; 82550; 82553; 82805; 82962; 83036; 83605; 83735; 83880; 84100; 84484; 85007; 85025; 85379; 87040; 87797; 87880; 92610; 93005; 94762; 96365; 96367; 96375; 97163; 97166; 97530; 99285; 99291; C9113; J0696; J1100; J1644; J1650; J1815; J1940; J2185; J3475; Q9967

== ENCOUNTER 2022-06-10 12:00 | Emergency (ER) | payer OTHER, SELFPAY ==
[2022-05-03 17:16] VITALS: BMI 19.4
[2022-06-10 12:06] VITALS: BP 111/62; PULSE 95; RESP 15; TEMP 36.9; O2SAT 99; BMI 19.1
--- NOTE | 2022-06-10 16:17 | ED.NAVMDI ---
HPI - Nausea/Vomiting/Diarrhea <AMANDA Snyder - Last Filed: 06/10/22 18:06> General Chief complaint: Nausea/Vomiting/Diarrhea Stated complaint: Diarrhea Time Seen by Provider: 06/10/22 15:59 Source: patient and EMS Mode of arrival: EMS History of Present Illness HPI Narrative: This is a 71-year-old male who presents to the emergency department via EMS for diarrhea and COVID symptoms since he was diagnosed COVID positive 2 weeks ago. Patient lives [facility] [place]. States that he had diarrhea 2 days ago, yesterday it improved and he did not have any diarrhea, today he states that he had watery diarrhea again without any blood in it. He is tolerating p.o., states that he ate oatmeal and milk today. Denies nausea, vomiting, chills, fever, shortness of breath, chest pain, weakness or any other symptoms. He denies dehydration, states that he is concerned about having severe diarrhea again but endorses that he does not have a wallet or any money to pay for medications today. Related Data Home Medications Medication Instructions Recorded Confirmed metformin 1,000 mg tablet 1,000 mg PO BID 07/22/21 07/22/21 citalopram 10 mg tablet 5 mg PO DAILY 07/23/21 07/23/21 glimepiride 1 mg tablet 1 mg PO DAILY 07/23/21 07/23/21 levothyroxine 75 mcg tablet 75 mcg PO DAILY 07/23/21 05/03/22 metoprolol tartrate 25 mg tablet 12.5 mg PO BID 07/23/21 05/03/22 simvastatin 10 mg tablet 10 mg PO BEDTIME 07/23/21 05/03/22 sertraline 50 mg tablet 50 mg PO DAILY 05/03/22 05/03/22 trazodone 50 mg tablet 50 mg PO DAILY 05/03/22 05/03/22 Previous Rx's Medication Instructions Recorded loperamide 2 mg capsule 2 mg PO QID PRN loose stool #30 06/10/22 caps Allergies Allergy/AdvReac Type Severity Reaction Status Date / Time No Known Drug Allergies Allergy Verified 06/10/22 12:08 Review of Systems <AMANDA Snyder - Last Filed: 06/10/22 18:06> Review of Systems ROS Unobtainable: All systems reviewed & are unremarkable except as noted in HPI and below Patient History <AMANDA Snyder - Last Filed: 06/10/22 18:06> Social History household members: none Smoking Status: Never smoker Smoking Status: Never smoker alcohol intake frequency: holidays/special occasions only Substance Use Type: does not use Exam <AMANDA Snyder - Last Filed: 06/10/22 18:06> Narrative Exam Narrative: Reviewed vitals signs and nursing notes. General: cooperative, comfortable, in no acute distress, well groomed interactive and pleasant HEENT: symmetrical facial expressions, moist mucous membranes Cardiovascular: regular rate and rhythm, no peripheral edema, warm extremities Respiratory: normal effort, able to speak in complete sentences, without wheezing, stridor, or abnormal breath sounds. No retractions or tachypnea. GI: abdomen soft, nontender to palpation, nondistended, without masses, rebound tenderness or exquisite tenderness with exam. MSK: moves all extremities, neurovascularly intact, no weakness, normal tone Skin: brisk capillary refill, without pallor or erythema Neuro: normal speech and cognition, A&O x3, ambulatory, clear speech Psych: mental status is grossly normal, congruent mood, normal affect, pleasant and cooperative Initial Vital Signs Initial Vital Signs: Vital Signs Temperature 98.5 F 06/10/22 12:06 Pulse Rate 95 H 06/10/22 12:06 Respiratory Rate 15 06/10/22 12:06 Blood Pressure 111/62 06/10/22 12:06 Pulse Oximetry 99 06/10/22 12:06 Oxygen Delivery Method 06/10/22 12:06 <Shania Wiggins DO - Last Filed: 06/13/22 07:51> Initial Vital Signs Initial Vital Signs: Vital Signs Temperature 98.5 F 06/10/22 12:06 Pulse Rate 95 H 06/10/22 12:06 Respiratory Rate 15 06/10/22 12:06 Blood Pressure 111/62 06/10/22 12:06 Pulse Oximetry 99 06/10/22 12:06 Oxygen Delivery Method 06/10/22 12:06 Course <AMANDA Snyder - Last Filed: 06/10/22 18:06> Orders Ordered: Discontinued Medications Acetaminophen (Acetaminophen 325 Mg Tablet) 650 mg PO NOW ONE Stop: 06/10/22 16:03 Last Admin: 06/10/22 16:41 Dose: 650 mg Documented By: JARON Sodium Chloride (Normal Saline 0.9%) 1,000 mls @ 1,000 mls/hr IV BOLUS ONE Stop: 06/10/22 16:59 Ketorolac Tromethamine (Ketorolac 30 Mg/Ml Vial) 15 mg IV NOW ONE Stop: 06/10/22 16:03 Loperamide HCl (Loperamide 2 Mg Capsule) 4 mg PO NOW ONE Stop: 06/10/22 16:15 Last Admin: 06/10/22 16:41 Dose: 4 mg Documented By: JARON Loperamide HCl (Loperamide 2 Mg Capsule) 4 mg PO NOW ONE Stop: 06/10/22 16:23 Vital Signs Vital signs: Vital Signs - 8 hr 06/10/22 12:06 Temperature 98.5 F Pulse Rate 95 H Respiratory Rate 15 Blood Pressure 111/62 Pulse Oximetry 99 Oxygen Delivery Method Room Air <Shania Wiggins DO - Last Filed: 06/13/22 07:51> Orders Ordered: Discontinued Medications Acetaminophen (Acetaminophen 325 Mg Tablet) 650 mg PO NOW ONE Stop: 06/10/22 16:03 Last Admin: 06/10/22 16:41 Dose: 650 mg Documented By: JARON Sodium Chloride (Normal Saline 0.9%) 1,000 mls @ 1,000 mls/hr IV BOLUS ONE Stop: 06/10/22 16:59 Ketorolac Tromethamine (Ketorolac 30 Mg/Ml Vial) 15 mg IV NOW ONE Stop: 06/10/22 16:03 Loperamide HCl (Loperamide 2 Mg Capsule) 4 mg PO NOW ONE Stop: 06/10/22 16:15 Last Admin: 06/10/22 16:41 Dose: 4 mg Documented By: JARON Loperamide HCl (Loperamide 2 Mg Capsule) 4 mg PO NOW ONE Stop: 06/10/22 16:23 Vital Signs Vital signs: Vital Signs - 8 hr 06/10/22 12:06 Temperature 98.5 F Pulse Rate 95 H Respiratory Rate 15 Blood Pressure 111/62 Pulse Oximetry 99 Oxygen Delivery Method Room Air MDM - Nausea/Vomiting/Diarrhea <AMANDA Snyder - Last Filed: 06/10/22 18:06> Lab Data Labs: Lab Results 06/10/22 Range/Units 16:48 SARS-CoV-2 (PCR) Positive H (Negative) Influenza A (RT-PCR) Flu a negative (NEGATIVE) Influenza B (RT-PCR) Flu b negative (NEGATIVE) RSV (PCR) Negative (Negative) MDM Narrative Medical decision making narrative: This is a pleasant 71-year-old male presents to the emergency department complaining of diarrhea today and 2 days ago without other episodes and recent COVID infection. He tested positive 2 weeks ago, lives at [facility], complains of diarrhea without blood in his stool without vomiting, fever or chills, shortness of breath, chest pain, difficulty breathing, or other symptom. Patient takes metformin 1000 mg b.i.d., and states that his diarrhea was much worse today than other times but has resolved in his unabl to leave a stool sample here. Patient is well hydrated appearing, he is tolerating p.o., without significant symptoms or systemic symptoms of illness. He arrived by EMS because he does not have transportation, and does not have any money to pay for his prescription. He was given 4 mg of loperamide in the emergency department for diarrhea presumably noninfectious and secondary to viral infection. He is without tachypnea, shortness of breath, history of type 2 diabetes, CAD, CKD, hypothyroidism. His COVID PCR is pending, he was prescribed loperamide and encouraged to return to his PCP for follow-up. He states that he thinks his diarrhea secondary to COVID infection which was what mild presumption is. Differential diagnoses include infectious diarrhea, patient has not traveled and there is no blood in his stool, differential diagnoses also include rotavirus, adenovirus, other viral cause of diarrhea, he does not participate in anal intercourse, could be drug-induced since he is on metformin, ischemic colitis, ulcerative colitis. Discussed return to the emergency department for fever, dehydration, worsening symptoms and blood is in his stool. Patient is appropriate and amenable to discharge home. Vital signs are stable on repeat examination is unremarkable. Patient has been informed of results. Patient has been given strict return to ER precautions for any new or worsening symptoms. Patient understands to follow up closely with outpatient providers as instructed. Patient understands plan and agrees to discharge home. All questions and concerns answered at this time. <Shania Botnick, DO - Last Filed: 06/13/22 07:51> Lab Data Labs: Lab Results 06/10/22 Range/Units 16:48 SARS-CoV-2 (PCR) Positive H (Negative) Influenza A (RT-PCR) Flu a negative (NEGATIVE) Influenza B (RT-PCR) Flu b negative (NEGATIVE) RSV (PCR) Negative (Negative) Discharge Plan Departure Patient Disposition: Home Clinical Impression: COVID-19 Diarrhea Qualifiers: Diarrhea type: unspecified type Qualified Code(s): R19.7 - Diarrhea, unspecified Instructions: Diarrhea, COVID-19 Activity Restrictions/Additional Instructions: *You have been diagnosed with diarrhea most likely secondary to COVID illness. Please get this prescription filled or go to the closest pharmacy when you get your wallet or somebody to help you pay for [id number] Imodium. Your symptoms should start to improve, incorporate fiber into your diet, stay hydrated, return if you have fever, chills or blood in your stool. I will call you later if your COVID is still positive. Please use Tylenol 650 mg every 6 hours as needed for pain or discomfort. I hope you start feeling better soon, thank you for your patience today. *What to do: *Please continue to take your regular medications as directed. [ ] New medication prescriptions sent to your pharmacy: [ ] [ x] New medication written as a paper prescription [ ] No new medications given *Please follow up with your primary care provider in 2-3 days, call for an appointment. Let them know you were seen in the Emergency Department and that we asked that you be seen for follow-up. We will electronically transmit a record of today's note if your PCP is in our system *If you do not have a primary care provider please contact [phone] to establish care with one of the [facility] primary care providers. *Return to Emergency Department if you should have any new, worsening, or concerning symptoms, such as [fever greater than 101F, chills, worsening pain, persistent vomiting or other bothersome symptoms]. Prescriptions: New loperamide 2 mg capsule 2 mg PO QID PRN (Reason: loose stool) Qty: 30 0RF Rx Instructions: Please take only if you are having liquid stool, may take up to 4 times daily, please beware of constipation if you take multiple doses in 1 day. No Action metformin 1,000 mg Tablet 1,000 mg PO BID citalopram 10 mg tablet 5 mg PO DAILY simvastatin 10 mg tablet 10 mg PO BEDTIME Label Comments: TAKE ONE TABLET BY MOUTH EVERY EVENING glimepiride 1 mg tablet 1 mg PO DAILY Label Comments: TAKE ONE TABLET BY MOUTH DAILY levothyroxine 75 mcg tablet 75 mcg PO DAILY Label Comments: TAKE ONE TABLET BY MOUTH DAILY metoprolol tartrate 25 mg tablet 12.5 mg PO BID Label Comments: TAKE ONE-HALF TABLET BY MOUTH TWICE DAILY trazodone 50 mg tablet 50 mg PO DAILY sertraline 50 mg Tablet 50 mg PO DAILY Referrals: Miscellaneous,Doctor, MD [Primary Care Provider] - Stand Alone Forms: Patient Portal/API <Shania Wiggins DO - Last Filed: 06/13/22 07:51> Cosign ED Attending Surendra Attestation: I was immediately available in the department for consultation. Documentation has been reviewed. I agree with assessment and plan.
[2022-06-10] MEDS: LOPERAMIDE 2 MG CAPSULE 4 MG PO (16:41)
[2022-06-10] MEDS: ACETAMINOPHEN 325 MG TABLET 650 MG PO (16:41)
[2022-06-10 17:44] LABS: Influenza A - CEPHEID Flu A NEGATIVE (NEGATIVE); Influenza B - CEPHEID Flu B NEGATIVE (NEGATIVE); Respiratory Syncytial Virus Negative (Negative)
[2022-06-10 17:52] LABS: COVID-19 CEPHEID 4-PLEX PCR POSITIVE (Negative)
== END 2022-06-10 16:52 | disposition home or self-care (01) ==
PROVIDERS: Emergency Provider Nurse Practitioner Critical Care Medicine
DX: U07.1 COVID-19 (principal); R19.7 Diarrhea, unspecified
CPT/HCPCS: 0241U; 99282; 99283